=== PATIENT | female | born 1990 | race Caucasian/White ===

== ENCOUNTER 2019-08-15 08:50 | Emergency (ER) | payer OTHER ==
--- OUTSIDE RECORDS SUMMARY | 2019-08-15 08:59 | XMS REPORT | Summary of Care ---
:1990 Author Organization [facility] Address [address] [place] [address] Care Team Providers Name Role Phone Joel Hernandez Primary Care Provider Reason for Referral Radiology Services (Routine) Status Reason Specialty Diagnoses / Referred By Referred To Procedures Contact Contact New Request Diagnostic Diagnoses Irregular menstrual cycle Dyspareunia, female Vaginal pain Toniaphwesley, Radiology Procedures US PELVIS COMPLETE WITH TRANSVAGINAL [place] [address] [facility] [address] [place] [address] Reason for Visit Reason Comments DYSPAREUNIA past two months CRAMPS BLOATING Encounter Details Date Type Department Care Team Description 02/07/2019 Office Visit [facility] Women's Nettie Estrada, Irregular menstrual cycle (Primary Dx); [facility] CUEVAS Other specified conditions associated with female genital organs and menstrual cycle ; [address], [address] [facility] Dyspareunia, female; [address] Uterine cramping; [place], [place] [address] Abdominal bloating; [address] [place] Vaginal discharge; [phone] [address] Excessive or frequent menstruation; [phone] Vaginal pain; Pain pelvic Allergies Active Allergy Reactions Severity Noted Date Comments Cefaclor Rash 03/14/2009 Penicillins Unknown - See comments 02/23/2017 seizure documented as of this encounter (statuses as of 02/07/2019) Medications Medication Sig Dispensed Refills Start Date End Date Status diazePAM (VALIUM) 5 Take 1 tablet 1 tablet 0 02/23/2017 Active mg by mouth tabletIndications: SEE-INSTRUCTI Pre-procedural ONS. examination Hydrocodone-Acetami Take 1 tablet 1 tablet 0 02/23/2017 Active nophen (VICODIN) by mouth 5-300 mg SEE-INSTRUCTI tabletIndications: ONS. Pre-procedural examination norgestimate-ethiny Take 1 tablet 1 Package 12 02/07/2019 Active l estradiol 0.25-35 by mouth mg-mcg per daily. tabletIndications: Irregular menstrual cycle, Excessive or frequent menstruation norgestimate-ethiny Take 1 tablet 1 Package 12 05/11/2018 02/07/2019 Discontinued l estradiol 0.25-35 by mouth mg-mcg per daily. tabletIndications: Irregular menstrual cycle, Excessive or frequent menstruation norgestimate-ethiny Take 1 tablet 0 02/07/2019 Discontinued l estradiol by mouth (ESTARYLLA) 0.25-35 daily. mg-mcg per tablet documented as of this encounter (statuses as of 02/07/2019) Active Problems Problem Noted Date Uses vaginal contraceptive ring 04/27/2017 Irregular menstrual cycle 02/23/2017 Excessive or frequent menstruation 02/23/2017 Breakthrough bleeding on OCPs 02/23/2017 Abdominal bloating associated with menstruation 02/23/2017 Dysmenorrhea 02/23/2017 Elevated blood pressure reading 08/10/2010 documented as of this encounter (statuses as of 02/07/2019) Social History Tobacco Use Types Packs/Day Years Used Date Never Smoker Smokeless Tobacco: Never Used Alcohol Use Drinks/Week oz/Week Comments No Sex Assigned at Date Recorded Not on file Job Start Date Occupation Industry Not on file Not on file Not on file Travel History Travel Start Travel End No recent travel history available. documented as of this encounter Last Filed Vital Signs Vital Sign Reading Time Taken Comments Blood Pressure 125/82 02/07/2019 9:51 AM CDT Pulse 76 02/07/2019 9:51 AM CDT Temperature 36.5 C (97.7 F) 02/07/2019 9:51 AM CDT Respiratory Rate 18 02/07/2019 9:51 AM CDT Oxygen Saturation - - Inhaled Oxygen Concentration - - Weight 62.2 kg (137 lb 3.2 oz) 02/07/2019 9:51 AM CDT Height 165.1 cm (5' 5") 02/07/2019 9:51 AM CDT Body Mass Index 22.83 02/07/2019 9:51 AM CDT documented in this encounter Progress Notes Nettie Estrada PA-C - 02/07/2019 9:30 AM CDT Chief complaint: Chief Complaint Patient presents with DYSPAREUNIA past two months CRAMPS BLOATING HPI Subha Fan is a 28 year old female coming in with concerns for vaginal pain, pelvic pain,and dyspareunia. Patient reports she has a hx of irregular menses, ovarian cysts, and dysmenorrhea. Patient reports she was on an OCP before and she was switched to estarylla from Dr. Pavon. Patient reports ever since switching her pain started. Patient is wanting to get started back on her old OCP. Patient denies any vaginal spotting, bleeding, vaginal discharge, vaginal odor. Histories OB History Para Term AB Living 0 0 0 0 0 0 SAB TAB Ectopic Multiple Live Births 0 0 0 0 Past Medical History: Diagnosis Date Anxiety Asthma allergy induced Depression Dysmenorrhea 02/23/2017 Dyspareunia, female 11/2018 Irregular menstrual cycle 02/23/2017 NEGATIVE HISTORY OF Family History Problem Relation Age of Onset Hypertension Mother Asthma Mother High cholesterol Mother Hypertension Father Asthma Father High cholesterol Father Cancer Unknown ? Breast Cancer Maternal Grandmother 70 Cancer Paternal Grandmother 50 kidney Arthritis NoFHx defects NoFHx Colon Cancer NoFHx Ovarian Cancer NoFHx Uterine Cancer NoFHx Depression NoFHx Diabetes NoFHx Genetic NoFHx Heart NoFHx Mental retardation NoFHx Neurological NoFHx Osteoporosis NoFHx Psychiatry NoFHx Family Status Relation Name Status Mo (Not Specified) Fa (Not Specified) Unknown (Not Specified) MGMo Alive PGMo NoFHx (Not Specified) Past Surgical History: Procedure Laterality Date [place] ANESTH,KNEE AREA SURGERY 05/31/2014 TOOTH EXTRACTION Social History Socioeconomic History Marital status: Spouse name: Not on file Number of children: Not on file Years of education: Not on file Highest education level: Not on file Occupational History Not on file Social Needs Financial resource strain: Not on file Food insecurity: Worry: Not on file Inability: Not on file Transportation needs: Medical: Not on file Non-medical: Not on file Tobacco Use Smoking status: Never Smoker Smokeless tobacco: Never Used Substance and Sexual Activity Alcohol use: No Drug use: No Sexual activity: Yes Partners: Male control/protection: Pill Lifestyle Physical activity: Days per week: Not on file Minutes per session: Not on file Stress: Not on file Relationships Social connections: Talks on phone: Not on file Gets together: Not on file Attends lutheran service: Not on file Active member of club or organization: Not on file Attends meetings of clubs or organizations: Not on file Relationship status: Not on file Intimate partner violence: Fear of current or ex partner: Not on file Emotionally abused: Not on file Physically abused: Not on file Forced sexual activity: Not on file Other Topics Concern Not on file Social History Narrative No domestic abuse or violence. Social History Substance and Sexual Activity Sexual Activity Yes Partners: Male control/protection: Pill Labs none Radiology none Allergies Subha is allergic to ceclor [cefaclor] and pcn [penicillins]. Medications Subha has a current medication list which includes the following prescription(s) : norgestimate-ethinyl estradiol, diazepam, and hydrocodone-acetaminophen. Review of Systems Constitutional: Negative for appetite change, fatigue and fever. HENT: Negative for rhinorrhea and sore throat. Eyes: Negative for pain and itching. Respiratory: Negative for cough, chest tightness and shortness of breath. Breasts: Negative for discharge, mass and pain. Cardiovascular: Negative for chest pain, palpitations and leg swelling. Gastrointestinal: Negative for abdominal pain, constipation, diarrhea and nausea. Genitourinary: Positive for vaginal pain, menstrual problem and pelvic pain. Negative for bladder incontinence, dysuria, vaginal discharge and difficulty urinating. Musculoskeletal: Negative for gait problem and myalgias. Skin: Negative for rash. Neurological: Negative for dizziness and headaches. Psychiatric/Behavioral: Negative for suicidal ideas. The patient is not nervous/ anxious. Endocrine: Negative for hair loss. BP 125/82 (BP Location: Left arm, Patient Position: Sitting, BP CUFF SIZE: Adult Medium) | Pulse 76 | Temp 36.5 C (97.7 F) (Oral) | Resp 18 | Ht 5' 5" (1.651 m) | Wt 137 lb 3.2 oz (62.2 kg) |LMP 01/07/2019 (Approximate) | BMI 22.83 kg/m Pregravid BMI: Could not be calculated Physical Exam Vitals reviewed. Constitutional: She is oriented to person, place, and time. She appears well- developed and well-nourished. Neck: No mass. No thyromegaly palpated. No neck adenopathy. Cardiovascular: Regular rate and rhythm. Pulmonary/Chest: Normal inspiratory effort. Abdominal: Abdomen is soft. No tenderness present. No hernia palpated or inspected. Neuro/Psychiatric: She has a normal mood and affect. She is oriented to person, place, and time. Skin: Skin normal. Lymphadenopathy: No neck adenopathy present. No axillary adenopathy present. No inguinal adenopathy present. External genitalia: Normal external genitalia appropriate for age. Urethral meatus: Normal urethral meatus Urethra: Normal urethra. No urethral tenderness palpated. Bladder: No tenderness. Normal bladder Vagina:Vaginal discharge found. Cervix: Normal cervix. No tenderness present. Uterus: Uterus is non-tender. Normal uterus Adnexa: Right adnexa without tenderness. Left adnexa without tenderness. Normal left adnexa and normal right adnexa Assessment/Plan Irregular menstrual cycle (primary encounter diagnosis) Plan: norgestimate-ethinyl estradiol 0.25-35 mg-mcg per tablet, US PELVIS COMPLETE WITH TRANSVAGINAL Patient denies self or family history of thromboembolic disease or thrombophilia , migraine headache. I counseled patient regarding use of oral contraceptives. There are combined oral contraceptive, which has both estrogen and progestin, and there is progestin only oral contraceptive. With typical use, 9 out 100 women get in the first year and with perfect use 0.3 out of 100 women get in the first year according to ACOG Practice Bulletin. Risks include but not limited to increase risk of thromboembolic disease, headache, weight gain, mood lability, and breast cancer. Decrease risks of ovarian cancer , colon cancer, and endometrial cancer. Oral contraceptive may decrease milk supply. Alternatives reviewed include patch, ring, Depo-Provera, Nexplanon, and IUD. Advise using condoms for STDs prevention. Other specified conditions associated with female genital organs and menstrual cycle Dyspareunia, female Plan: US PELVIS COMPLETE WITH TRANSVAGINAL Uterine cramping Plan: [facility] ONLY - VAGINAL PATHOGENS BY DNA PROBE, GC & CHLAMYDIA AMPLIFIED ASSAY Abdominal bloating Plan: [facility] ONLY - VAGINAL PATHOGENS BY DNA PROBE, GC & CHLAMYDIA AMPLIFIED ASSAY Vaginal discharge Plan: [facility] ONLY - VAGINAL PATHOGENS BY DNA PROBE, GC & CHLAMYDIA AMPLIFIED ASSAY Excessive or frequent menstruation Plan: norgestimate-ethinyl estradiol 0.25-35 mg-mcg per tablet Vaginal pain Plan: US PELVIS COMPLETE WITH TRANSVAGINAL Pain pelvic Return to clinic prn WWE Discussed treatment options. Medications as ordered. Reviewed patient instructions and provided printed copy. This visit did not involve counseling and coordination that comprised more than 50% of the visit time. Nettie Estrada PA-C 02/07/2019 10:25 AM documented in this encounter Plan of Treatment Name Type Priority Associated Diagnoses Order Schedule [facility] ONLY - VAGINAL LAB Routine Uterine cramping Ordered: 02/07/2019 PATHOGENS BY DNA PROBE Abdominal bloating Vaginal discharge GC & CHLAMYDIA AMPLIFIED LAB Routine Uterine cramping Ordered: 02/07/2019 ASSAY Abdominal bloating Vaginal discharge US PELVIS COMPLETE WITH IMAGING Routine Irregular menstrual Expected: TRANSVAGINAL cycle 02/07/2019, Expires: Dyspareunia, female 02/08/2020 Vaginal pain Health Maintenance Due Date Last Done Comments VARICELLA VACCINES (1 of 2 - 13+ 2002 2-dose series) DTaP,Tdap,and Td Vaccines (1 - 2008 Tdap) INFLUENZA VACCINE (#1) 2019 06/29/2016 PAP SMEAR 04/27/2020 04/27/2017 PNEUMOCOCCAL 0-64 YEARS COMBINED Aged Out No longer eligible based on SERIES patient's age to complete this topic documented as of this encounter Results Not on filedocumented in this encounter Visit Diagnoses Diagnosis Irregular menstrual cycle - Primary Other specified conditions associated with female genital organs and menstrual cycle Dyspareunia, female Dyspareunia Uterine cramping Abdominal bloating Flatulence, eructation, and gas pain Vaginal discharge Leukorrhea, not specified as infective Excessive or frequent menstruation Vaginal pain Unspecified symptom associated with female genital organs Pain pelvic Unspecified symptom associated with female genital organs documented in this encounter . (Home) [place] [address] documented as of this encounter
--- OUTSIDE RECORDS SUMMARY | 2019-08-15 08:59 | XMS REPORT ---
:1990 Author Organization [facility] Address [address] [place] [address] Dr. Mac [address] [place] [address] Care Team Providers Name Role Phone Unavailable Unavailable Unavailable Problems This patient has no known problems. Allergies, Adverse Reactions, Alerts This patient has no known allergies or adverse reactions. Medications This patient has no known medications.
--- OUTSIDE RECORDS SUMMARY | 2019-08-15 08:59 | XMS REPORT | Summary of Care ---
:1990 Author Organization [facility] - Health Address [address] [place] [address] Care Team Providers Name Role Phone Joel Hernandez Primary Care Provider Encounter Details Date Type Department Care Team Description 01/13/2019 Orders Only [facility] Doctor Unassigned, No [address] [facility] [place] [address] [address] [place] [address] Allergies Active Allergy Reactions Severity Noted Date Comments Cefaclor Rash 03/14/2009 Penicillins Unknown - See comments 02/23/2017 seizure documented as of this encounter (statuses as of 01/19/2019) Medications Medication Sig Dispensed Refills Start Date End Date Status diazePAM (VALIUM) 5 mg Take 1 tablet by 1 tablet 0 02/23/2017 Active tabletIndications: mouth Pre-procedural SEE-INSTRUCTIONS. examination Hydrocodone-Acetaminoph Take 1 tablet by 1 tablet 0 02/23/2017 Active en (VICODIN) 5-300 mg mouth tabletIndications: SEE-INSTRUCTIONS. Pre-procedural examination norgestimate-ethinyl Take 1 tablet by 1 Package 12 05/11/2018 Active estradiol 0.25-35 mouth daily. mg-mcg per tabletIndications: Irregular menstrual cycle, Excessive or frequent menstruation documented as of this encounter (statuses as of 01/19/2019) Active Problems Problem Noted Date Uses vaginal contraceptive ring 04/27/2017 Irregular menstrual cycle 02/23/2017 Excessive or frequent menstruation 02/23/2017 Breakthrough bleeding on OCPs 02/23/2017 Abdominal bloating associated with menstruation 02/23/2017 Dysmenorrhea 02/23/2017 Elevated blood pressure reading 08/10/2010 documented as of this encounter (statuses as of 01/19/2019) Social History Tobacco Use Types Packs/Day Years Used Date Never Smoker Smokeless Tobacco: Never Used Alcohol Use Drinks/Week oz/Week Comments No Sex Assigned at Date Recorded Not on file Job Start Date Occupation Industry Not on file Not on file Not on file Travel History Travel Start Travel End No recent travel history available. documented as of this encounter Last Filed Vital Signs Not on filedocumented in this encounter Plan of Treatment Health Maintenance Due Date Last Done Comments VARICELLA VACCINES (1 of 2 - 13+ 2002 2-dose series) DTaP,Tdap,and Td Vaccines (1 - 2008 Tdap) INFLUENZA VACCINE 02/19/2019 06/29/2016 PAP SMEAR 04/27/2020 04/27/2017 PNEUMOCOCCAL 0-64 YEARS COMBINED Aged Out No longer eligible based on SERIES patient's age to complete this topic documented as of this encounter Procedures Procedure Name Priority Date/Time Associated Diagnosis Comments REFERRAL- Routine 01/13/2019 12:01 AM CDT REQUEST/RESPONSE documented in this encounter Results Not on filedocumented in this encounter Insurance Payer Benefit Plan / Group Subscriber ID Effective Dates Phone Address Type EAST [id number] 2018-Present SOUTH [id number] 2016-Present documented as of this encounter
--- OUTSIDE RECORDS SUMMARY | 2019-08-15 09:00 | XMS REPORT | Summary of Care ---
:1990 Author Organization [facility] Address [address] [place] [address] Care Team Providers Name Role Phone Joel Hernandez Primary Care Provider Reason for Referral Radiology Services (Routine) Status Reason Specialty Diagnoses / Referred By Referred To Procedures Contact Contact Closed Diagnostic Diagnoses Irregular menstrual cycle Dyspareunia, female Vaginal pain Irregular menstrual cycle Vanaphan, Nettie, Radiology Procedures US PELVIS COMPLETE WITH TRANSVAGINAL CHG ECHO,PELVIC (NONOBSTETRIC) PA-C [address] [address] Radiology Services (Routine) Status Reason Specialty Diagnoses / Referred By Referred To Procedures Contact Contact Closed Diagnostic Diagnoses Irregular menstrual cycle Dyspareunia, female Vaginal pain Irregular menstrual cycle Vanaphan, Nettie, Radiology Procedures US PELVIS COMPLETE WITH TRANSVAGINAL CHG ECHO,PELVIC (NONOBSTETRIC) PA-C [address] [address] Reason for Visit Radiology Services (Routine) Status Reason Specialty Diagnoses / Referred By Referred To Procedures Contact Contact Closed Diagnostic Diagnoses Irregular menstrual cycle Dyspareunia, female Vaginal pain Irregular menstrual cycle Vanaphan, Nettie, Radiology Procedures US PELVIS COMPLETE WITH TRANSVAGINAL CHG ECHO,PELVIC (NONOBSTETRIC) PA-C [address] [address] Encounter Details Date Type Department Care Team Description 02/14/2019 Hospital Encounter [facility] Natalie Nettie, Leonid Gonzalez Ultrasound PA-C [address] [facility] [address] [place] [address] [address] [phone] [address] [place] [address] Allergies Active Allergy Reactions Severity Noted Date Comments Cefaclor Rash 03/14/2009 Penicillins Unknown - See comments 02/23/2017 seizure documented as of this encounter (statuses as of 02/15/2019) Medications Medication Sig Dispensed Refills Start Date End Date Status diazePAM (VALIUM) 5 mg Take 1 tablet by 1 tablet 0 02/23/2017 Active tabletIndications: mouth Pre-procedural SEE-INSTRUCTIONS examination . Hydrocodone-Acetaminophe Take 1 tablet by 1 tablet 0 02/23/2017 Active n (VICODIN) 5-300 mg mouth tabletIndications: SEE-INSTRUCTIONS Pre-procedural . examination norgestimate-ethinyl Take 1 tablet by 1 Package 12 02/07/2019 Active estradiol 0.25-35 mg-mcg mouth daily. per tabletIndications: Irregular menstrual cycle, Excessive or frequent menstruation metroNIDAZOLE 500 mg Take 1 tablet by 14 tablet 0 02/08/2019 Active tabletIndications: BV mouth every 12 (bacterial vaginosis) (twelve) hours. documented as of this encounter (statuses as of 02/15/2019) Active Problems Problem Noted Date Uses vaginal contraceptive ring 04/27/2017 Irregular menstrual cycle 02/23/2017 Excessive or frequent menstruation 02/23/2017 Breakthrough bleeding on OCPs 02/23/2017 Abdominal bloating associated with menstruation 02/23/2017 Dysmenorrhea 02/23/2017 Elevated blood pressure reading 08/10/2010 documented as of this encounter (statuses as of 02/15/2019) Social History Tobacco Use Types Packs/Day Years [...] encounter Procedures Procedure Name Priority Date/Time Associated Comments Diagnosis US PELVIS COMPLETE Routine 02/14/2019 9:54 Irregular menstrual Results for this WITH TRANSVAGINAL AM CDT cycle procedure are in Dyspareunia, female the results Vaginal pain section. documented in this encounter Results US PELVIS COMPLETE WITH TRANSVAGINAL (02/14/2019 9:54 AM CDT) Specimen Narrative Performed At HISTORY: Vaginal/pelvic pain during intercourse. PACS/VR/DOSE TECHNIQUE: Both transabdominal and transvaginal pelvic ultrasound studies were completed by the technologist. FINDINGS: Comparison has been made with 05/10/2018 study. Uterus is of normal size and shape, measures approximately 7.1 x 2.5 x 4.3 cm in size with homogeneous echo texture of the myometrium. Endometrial echo complex is 3.7 mm. No free fluid in the cul-de-sac. Right ovary is 3 x 3 x 1.6 cm (7.93 ml) and left ovary is 4.7 x 3.3 x 3.0 cm (24.89 ml). Multiple follicles are seen in the right ovary, ranging from 4 mm to 8mm in size. Left ovary contains a large 3.4 x 2.8 cm cyst with at least one 6 mm daughter cyst protruding into its lumen. 17 x 12 x 26 mm cystic lesion again noted adjacent to the external os of the cervix, likely arising from the vaginal wall. CONCLUSIONS: 1. Enlarged left ovary due to a large 3.4 cm size cyst. This cyst is a new finding since April 2018 study. 2. Known cystic mass in the wall of the vagina closed external os of the cervix, essentially unchanged. This cystic mass is likely the cause of patient's complaints. Procedure Note [facility], Radiant Results Inft User - 02/14/2019 10:05 AM CDT HISTORY: Vaginal/pelvic pain during intercourse. TECHNIQUE: Both transabdominal and transvaginal pelvic ultrasound studies were completed by the technologist. FINDINGS: Comparison has been made with 05/10/2018 study. Uterus is of normal size and shape, measures approximately 7.1 x 2.5 x 4.3 cm in size with homogeneous echo texture of the myometrium. Endometrial echo complex is 3.7 mm. No free fluid in the cul-de-sac. Right ovary is 3 x 3 x 1.6 cm (7.93 ml) and left ovary is 4.7 x 3.3 x 3.0 cm (24.89 ml). Multiple follicles are seen in the right ovary, ranging from 4 mm to 8mm in size. Left ovary contains a large 3.4 x 2.8 cm cyst with at least one 6 mm daughter cyst protruding into its lumen. 17 x 12 x 26 mm cystic lesion again noted adjacent to the external os of the cervix, likely arising from the vaginal wall. CONCLUSIONS: 1. Enlarged left ovary due to a large 3.4 cm size cyst. This cyst is a new finding since April 2018 study. 2. Known cystic mass in the wall of the vagina closed external os of the cervix, essentially unchanged. This cystic mass is likely the cause of patient's complaints. Performing Organization Address City/State/Zipcode Phone Number PACS/VR/DOSE documented in this encounter Visit Diagnoses Diagnosis Irregular menstrual cycle Dyspareunia, female Dyspareunia Vaginal pain Unspecified symptom associated with female genital organs documented in this encounter [address] (Home) [place] [address] documented as of this encounter
--- OUTSIDE RECORDS SUMMARY | 2019-08-15 09:00 | XMS REPORT | Summary of Care ---
:1990 Author Organization [facility] - Health Address [address] [place] [address] Care Team Providers Name Role Phone Joel Hernandez Primary Care Provider Encounter Details Date Type Department Care Team Description 02/14/2019 Orders Only [facility] Doctor Unassigned, No [address] [facility] [place] [address] [address] [place] [address] Allergies Active Allergy Reactions Severity Noted Date Comments Cefaclor Rash 03/14/2009 Penicillins Unknown - See comments 02/23/2017 seizure documented as of this encounter (statuses as of 02/14/2019) Medications Medication Sig Dispensed Refills Start Date [...] as of this encounter (statuses as of 02/14/2019) Active Problems Problem Noted Date Uses vaginal contraceptive ring 04/27/2017 Irregular menstrual cycle 02/23/2017 Excessive or frequent menstruation 02/23/2017 Breakthrough bleeding on OCPs 02/23/2017 Abdominal bloating associated with menstruation 02/23/2017 Dysmenorrhea 02/23/2017 Elevated blood pressure reading 08/10/2010 documented as of this encounter (statuses as of 02/14/2019) Social History Tobacco Use Types Packs/Day Years [...] Procedure Name Priority Date/Time Associated Diagnosis Comments ASSIGNMENT OF BENEFITS Routine 02/14/2019 9:05 AM CDT documented in this encounter Results Not on filedocumented in this encounter Insurance Payer Benefit Plan / Group Subscriber ID Effective Dates Phone Address Type EAST [id number] 2018-Present SOUTH [id number] 2016-Present documented as of this encounter
--- OUTSIDE RECORDS SUMMARY | 2019-08-15 09:00 | XMS REPORT | Summary of Care ---
:[address] [facility] - Health Address [address] [place] [address] Care Team Providers Name Role Phone Joel Hernandez Primary Care Provider Encounter Details Date Type Department Care Team Description 07/29/[address] [facility] Doctor Unassigned, No [address] [facility] [place] [address] [address] [place] [address] Allergies Active Allergy Reactions Severity Noted Date Comments Cefaclor Rash 03/14/2009 Penicillins Unknown - See comments 02/23/2017 seizure documented as of this encounter (statuses as of 02/19/2019) Medications Medication Sig Dispensed Refills Start Date End Date Status diazePAM (VALIUM) 5 mg Take 1 tablet by 1 tablet 0 02/23/2017 Active tabletIndications: mouth Pre-procedural SEE-INSTRUCTIONS. examination Hydrocodone-Acetaminoph Take 1 tablet by 1 tablet 0 02/23/2017 Active en (VICODIN) 5-300 mg mouth tabletIndications: SEE-INSTRUCTIONS. Pre-procedural examination documented as of this encounter (statuses as of 02/19/2019) Active Problems Problem Noted Date Uses vaginal contraceptive ring 04/27/2017 Irregular menstrual cycle 02/23/2017 Excessive or frequent menstruation 02/23/2017 Breakthrough bleeding on OCPs 02/23/2017 Abdominal bloating associated with menstruation 02/23/2017 Dysmenorrhea 02/23/2017 Elevated blood pressure reading 08/10/2010 documented as of this encounter (statuses as of 02/19/2019) Social History Tobacco Use Types Packs/Day Years [...] Procedure Name Priority Date/Time Associated Diagnosis Comments INSURANCE CORRESPONDENCE Routine 07/29/2018 12:01 AM LUMBER CHECKER documented in this encounter Results Not on filedocumented in this encounter Insurance Payer Benefit Plan / Group Subscriber ID Effective Dates Phone Address Type EAST [id number] 2018-Present SOUTH [id number] 2016-Present documented as of this encounter
--- OUTSIDE RECORDS SUMMARY | 2019-08-15 09:00 | XMS REPORT | Summary of Care ---
:1990 Author Organization [facility] Address [address] [place] [address] Care Team Providers Name Role Phone Joel Hernandez Primary Care Provider Reason for Referral Radiology Services (Routine) Status Reason Specialty Diagnoses / Referred By Referred To Procedures Contact Contact New Request Diagnostic Diagnoses Irregular menstrual cycle Dyspareunia, female Vaginal pain Toni[place]wesley, Radiology Procedures US PELVIS COMPLETE WITH TRANSVAGINAL [place] [address] [facility] [address] [place] [address] Reason for Visit Reason Comments DYSPAREUNIA past two months CRAMPS BLOATING Encounter Details Date Type Department Care Team Description 02/07/2019 Office Visit [facility] Women's Nettie Estrada, Irregular menstrual cycle (Primary Dx); [facility] CUEVAS Other specified conditions associated with female genital organs and menstrual cycle ; [address], [address] [facility] Dyspareunia, female; [address] Uterine cramping; [place], [place] [address] Abdominal bloating; [address] [place], [place] Vaginal discharge; [phone] [address] Excessive or frequent menstruation; [phone] Vaginal pain; Pain pelvic Allergies Active Allergy [...] Specified) Past Surgical History: Procedure Laterality Date [place] ANESTH,KNEE AREA SURGERY 05/31/2014 TOOTH EXTRACTION Social [...] file Gets together: Not on file Attends denominational service: Not on file Active member of [...] organs documented in this encounter . (Home) [place] [address] documented as of this encounter
--- OUTSIDE RECORDS SUMMARY | 2019-08-15 09:00 | XMS REPORT | Summary of Care ---
:1990 Author Organization [facility] - [facility] Address [address] [place] [address] Care Team Providers Name Role Phone Joel Hernandez Primary Care Provider Reason for Visit Reason Comments New Medication Encounter Details Date Type Department Care Team Description 02/08/2019 Case Management [facility] Women's Nettie Estrada [facility]- [address], [address] [place] [address] [address] [place] [address] [place] [address] [place] [address] Allergies Active Allergy Reactions Severity Noted Date Comments Cefaclor Rash 03/14/2009 Penicillins Unknown - See comments 02/23/2017 seizure documented as of this encounter (statuses as of 02/08/2019) Medications Medication Sig Dispensed Refills Start Date [...] as of this encounter (statuses as of 02/08/2019) Active Problems Problem Noted Date Uses vaginal contraceptive ring 04/27/2017 Irregular menstrual cycle 02/23/2017 Excessive or frequent menstruation 02/23/2017 Breakthrough bleeding on OCPs 02/23/2017 Abdominal bloating associated with menstruation 02/23/2017 Dysmenorrhea 02/23/2017 Elevated blood pressure reading 08/10/2010 documented as of this encounter (statuses as of 02/08/2019) Social History Tobacco Use Types Packs/Day Years [...] filedocumented in this encounter Plan of Treatment Date Type Specialty Care Team Description 02/14/2019 Appointment Radiology Nettie Estrada PA-C [address] [place] [phone] Health Maintenance Due Date Last Done Comments [...] filedocumented in this encounter Visit Diagnoses Diagnosis BV (bacterial vaginosis) - Primary Vaginitis and vulvovaginitis, unspecified documented in this encounter Insurance Payer Benefit Plan / Group Subscriber ID Effective Dates Phone Address Type EAST [id number] 2018-Present SOUTH [id number] 2016-Present documented as of this encounter
--- OUTSIDE RECORDS SUMMARY | 2019-08-15 09:01 | XMS REPORT | Summary of Care ---
:1990 Author Organization [facility] Address [address] [place] [address] Care Team Providers Name Role Phone Joel Hernandez Primary Care Provider Reason for Visit Reason Comments Well Woman Exam Encounter Details Date Type Department Care Team Description 03/07/2019 Office Visit [facility] Women's Nettie Estrada Well woman exam with routine gynecological exam (Primary Dx); [facility] PA-C Screening breast examination; [address] [facility], [facility] Uses oral contraceptives [address] [facility] 208 [address] [place], [place] [phone] Allergies Active Allergy Reactions Severity Noted Date Comments Cefaclor Rash 03/14/2009 Penicillins Unknown - See comments 02/23/2017 seizure documented as of this encounter (statuses as of 03/07/2019) Medications Medication Sig Dispensed Refills Start Date [...] mouth every 12 (bacterial vaginosis) (twelve) hours. cetirizine 10 mg tablet TK 1 T PO D. 0 01/09/2019 Active montelukast 10 mg tablet TK 1 T PO QD 1 01/09/2019 Active documented as of this encounter (statuses as of 03/07/2019) Active Problems Problem Noted Date Uses vaginal contraceptive ring 04/27/2017 Irregular menstrual cycle 02/23/2017 Excessive or frequent menstruation 02/23/2017 Breakthrough bleeding on OCPs 02/23/2017 Abdominal bloating associated with menstruation 02/23/2017 Dysmenorrhea 02/23/2017 Elevated blood pressure reading 08/10/2010 documented as of this encounter (statuses as of 03/07/2019) Social History Tobacco Use Types Packs/Day Years Used Date Never Smoker Smokeless Tobacco: Never Used Alcohol Use Drinks/Week oz/Week Comments Yes rare Sex Assigned at Date Recorded Not on file Job Start Date Occupation Industry Not on file Not on file Not on file Travel History Travel Start Travel End No recent travel history available. documented as of this encounter Last Filed Vital Signs Vital Sign Reading Time Taken Comments Blood Pressure 113/76 03/07/2019 10:10 AM CDT Pulse 68 03/07/2019 10:10 AM CDT Temperature 36.4 C (97.5 F) 03/07/2019 10:10 AM CDT Respiratory Rate 18 03/07/2019 10:10 AM CDT Oxygen Saturation - - Inhaled Oxygen Concentration - - Weight 62.6 kg (138 lb) 03/07/2019 10:10 AM CDT Height 162.6 cm (5' 4") 03/07/2019 10:10 AM CDT Body Mass Index 23.69 03/07/2019 10:10 AM CDT documented in this encounter Progress Notes Nettie Estrada PA-C - 03/07/2019 10:00 AM CDT Chief complaint: Chief Complaint Patient presents with Well Woman Exam HPI Subha Fan is a 28 year old female presenting for well woman exam. She has no complaints and reports is doing well. Patient denies any abnormal/ pelvic pain, discharge, dysuria, hematuria, abnormal bleeding. The patient has a Body mass index is 23.69 kg/m.. The patient is not concerned about her menstrual cycles. Her cycles are regular and last about 4-7days. Her bleeding is moderate. The patient is sexually active. She currently has 1 sexual partner(s). She is offered sexually transmitted disease testing and declines. She has had 1 sexual partners in the past year. She engages in vaginal and oral sex. She prefers men. She is currently using OCPs for contraception. The patient denies any urinary incontinence. She denies any fecal incontinence. Her last pap smear was in 2016 and was normal. Her next pap smear is due 2019. She engages in breast self awareness. She denies any breast changes. She denies any family history of ovarian, uterine or colon cancer. Patient reports paternal and maternal grandmothers had breast ca. The patient feels safe at home. She denies any history of drug use. She does not smoke. She drinks socially. Her mood is good. Histories OB History Para Term AB Living [...] Father Asthma Father High cholesterol Father Cancer Other ? Breast Cancer Maternal Grandmother 70 Cancer Paternal Grandmother 50 kidney Arthritis NoFHx defects NoFHx Colon Cancer NoFHx Ovarian Cancer NoFHx Uterine Cancer NoFHx Depression NoFHx Diabetes NoFHx Genetic NoFHx Heart NoFHx Mental retardation NoFHx Neurological NoFHx Osteoporosis NoFHx Psychiatry NoFHx Family Status Relation Name Status Mo (Not Specified) Fa (Not Specified) OTHER (Not Specified) MGMo Alive PGMo NoFHx (Not Specified) Past Surgical History: Procedure Laterality Date [place] ANESTH,KNEE AREA SURGERY 05/31/2014 TOOTH EXTRACTION Social [...] Used Substance and Sexual Activity Alcohol use: Yes Comment: rare Drug use: No Sexual activity: Yes Partners: Male control/protection: Pill Lifestyle Physical activity: Days per week: Not on file Minutes per session: Not on file Stress: Not on file Relationships Social connections: Talks on phone: Not on file Gets together: Not on file Attends zoroastrianism service: Not on file Active member of [...] list which includes the following prescription(s) : cetirizine, montelukast, norgestimate-ethinyl estradiol, metronidazole, diazepam, and hydrocodone-acetaminophen. Review of Systems Constitutional: Negative for appetite change, fatigue, fever, unexpected weight change, weight gain and weight loss. HENT: Negative for rhinorrhea and sore throat. Eyes: Negative for pain and itching. Respiratory: Negative for cough, chest tightness and shortness of breath. Breasts: Negative for discharge, mass and pain. Cardiovascular: Negative for chest pain, palpitations and leg swelling. Gastrointestinal: Negative for abdominal pain, constipation, diarrhea and nausea. Genitourinary: Negative for bladder incontinence, dysuria, vaginal discharge, difficulty urinating, vaginal pain and pelvic pain. Musculoskeletal: Negative for gait problem and myalgias. Skin: Negative for rash. Neurological: Negative for dizziness and headaches. Psychiatric/Behavioral: Negative for suicidal ideas. The patient is not nervous/ anxious. Endocrine: Negative for hair loss, weight gain and weight loss. BP 113/76 (BP Location: Left arm, Patient Position: Sitting, BP CUFF SIZE: Adult Medium) | Pulse 68 | Temp 36.4 C (97.5 F) (Oral) | Resp 18 | Ht 5' 4" (1.626 m) | Wt 138 lb (62.6 kg) | LMP 02/28/2019 (Exact Date) | BMI 23.69 kg/m Pregravid BMI: Could not be calculated [...] axillary adenopathy present. No inguinal adenopathy present. Breast: Right breast exhibits no mass, no nipple discharge and no tenderness. Left breast exhibits no mass, no nipple discharge and no tenderness. Breasts are symmetrical. Normal left breast and normalright breast External genitalia: Normal external genitalia appropriate for age. Urethral meatus: Normal urethral meatus Urethra: Normal urethra. Bladder: No tenderness. Normal bladder Vagina:Normal vagina. No lesion inspected. No abnormal vaginal discharge found. Cervix: Normal cervix. No lesion. No tenderness and no discharge present. Uterus: Uterus is non-tender. Normal uterus Adnexa: Right adnexa without tenderness. Left adnexa without tenderness. Normal left adnexa and normal right adnexa Anus/perineum: Normal perineum and normal anus. Assessment/Plan Well woman exam with routine gynecological exam (primary encounter diagnosis) FOLLOW-UP in 1 yr WWE Screening breast examination Comment:no complaints. Plan: self awareness Uses oral contraceptives [place] with OCPs. Patient will continue taking it. Return to clinic in 1 yr WWE Discussed treatment options. Reviewed patient instructions and provided printed copy. This visit did not involve counseling and coordination that comprised more than 50% of the visit time. Nettie Estrada PA-C 03/07/2019 10:35 AM documented in this encounter Plan of Treatment Date Type Specialty Care Team Description 03/07/2020 Office Visit Obstetrics & Gynecology Nettie Estrada PA-C [address] [place] [phone] Health Maintenance Due Date Last Done [...] filedocumented in this encounter Visit Diagnoses Diagnosis Well woman exam with routine gynecological exam - Primary Routine gynecological examination Screening breast examination Other screening breast examination Uses oral contraceptives Surveillance of previously prescribed contraceptive pill documented in this encounter Ln. (Home) [place] [address] documented as of this encounter
--- OUTSIDE RECORDS SUMMARY | 2019-08-15 09:01 | XMS REPORT | Summary of Care ---
:1990 Author Organization [facility] - Health Address [address] [place] [address] Care Team Providers Name Role Phone Joel Hernandez Primary Care Provider Encounter Details Date Type Department Care Team Description 03/07/2019 Orders Only [facility] Doctor Unassigned, No [address] [facility] [place] [address] 301 [place] [address] Allergies Active Allergy Reactions Severity Noted Date [...] Treatment Date Type Specialty Care Team Description 03/07/2019 Office Visit Obstetrics & Gynecology Nettie Estrada PA-C [address] [address] Health Maintenance Due Date Last Done [...] Procedure Name Priority Date/Time Associated Diagnosis Comments NO SHOW OR MISSED Routine 03/07/2019 9:56 AM APPOINTMENT POLICY CDT ACKNOWLEDGEMENT documented in this encounter Results Not on filedocumented in this encounter Insurance Payer Benefit Plan / Group Subscriber ID Effective Dates Phone Address Type EAST [id number] 2018-Present SOUTH [id number] 2016-Present documented as of this encounter
--- OUTSIDE RECORDS SUMMARY | 2019-08-15 09:01 | XMS REPORT | Summary of Care ---
:1990 Author Organization [facility] Address [address] [place] [address] Care Team Providers Name Role Phone Joel Hernandez Primary Care Provider Reason for Visit Reason Comments Notification Referral/consult Encounter Details Date Type Department Care Team Description 07/14/2019 Telephone [facility] Women's VeraTeena MD Notification; Healthcare- [address] Referral/consult [address] [place], [place] [address] [address] [place] [phone] Allergies Active Allergy Reactions Severity Noted Date Comments Cefaclor Rash 03/14/2009 Penicillins Unknown - See comments 02/23/2017 seizure documented as of this encounter (statuses as of 07/14/2019) Medications Medication Sig Dispensed Refills Start Date End Date Status cetirizine 10 mg tablet TK 1 T PO D. 0 01/09/2019 Active montelukast 10 mg tablet TK 1 T PO QD 1 01/09/2019 Active documented as of this encounter (statuses as of 07/14/2019) Active Problems Problem Noted Date Irregular menstrual cycle 02/23/2017 Excessive or frequent menstruation 02/23/2017 Abdominal bloating associated with menstruation 02/23/2017 Dysmenorrhea 02/23/2017 Elevated blood pressure reading 08/10/2010 documented as of this encounter (statuses as of 07/14/2019) Resolved Problems Problem Noted Date Resolved Date Uses vaginal contraceptive ring 04/27/2017 06/26/2019 Breakthrough bleeding on OCPs 02/23/2017 06/26/2019 documented as of this encounter (statuses as of 07/14/2019) Social History Tobacco Use Types Packs/Day Years [...] Visit Obstetrics & Gynecology Nettie Estrada PA-C [address] [place] [phone] Health Maintenance Due Date Last Done Comments VARICELLA VACCINES (1 of 2 - 1990 2-dose childhood series) DTaP,Tdap,and Td Vaccines (1 - 2000 Tdap) INFLUENZA VACCINE (#1) 2019 06/29/2016 PAP SMEAR 04/27/2020 04/27/2017 PNEUMOCOCCAL 0-64 YEARS COMBINED Aged Out No longer eligible based on SERIES patient's age to complete this topic documented as of this encounter Results Not on filedocumented in this encounter Insurance Payer Benefit Plan / Group Subscriber ID Effective Dates Phone Address Type EAST [id number] 2018-Present SOUTH [id number] 2016-Present documented as of this encounter
--- OUTSIDE RECORDS SUMMARY | 2019-08-15 09:01 | XMS REPORT | Summary of Care ---
:1990 Author Organization [facility] Address [address] [place] [address] Care Team Providers Name Role Phone Joel Hernandez Primary Care Provider Reason for Visit Reason Comments Well Woman Exam Encounter Details Date Type Department Care Team Description 03/07/2019 Office Visit [facility] Women's Nettie Estrada Well woman exam with routine gynecological exam (Primary Dx); [facility] Screening breast examination; [address] [facility], [facility] Uses oral contraceptives [address] [facility] 208 [address] [place], [place] [phone] Allergies Active Allergy Reactions Severity Noted Date [...] Specified) Past Surgical History: Procedure Laterality Date [place] ANESTH,KNEE AREA SURGERY 05/31/2014 TOOTH EXTRACTION Social [...] file Gets together: Not on file Attends episcopalian service: Not on file Active member of [...] documented in this encounter Plan of Treatment Health Maintenance Due Date Last Done Comments VARICELLA VACCINES (+ 2002 2-dose series) DTaP,Tdap,and Td Vaccines (1 [...] pill documented in this encounter [address]n. (Home) [place] [address] documented as of this encounter
[2019-08-15 09:39] LABS: Urine Blood NEGATIVE (NEG); Urine Glucose NEGATIVE (NEG); Urine Protein NEGATIVE (NEG); Urine pH 7.5 (5.0-7.0)
[2019-08-15 09:40] LABS: Absolute Lymphocytes (CBC) 2.7 K/uL (0.7-4.9); Basophils % 0.7 % (0-1.3); Hematocrit 39.7 % (36.0-45.0); Lymphocytes % 30.1 % (15.3-44.8); MPV 8.3 fL (7.6-11.3); RBC Red Blood Cell Count 4.25 M/uL (3.86-4.86)
[2019-08-15 10:20] LABS: BUN Blood Urea Nitrogen 6 mg/dL (7-18); Bicarbonate 25 mmol/L (21-32); Glucose Level 89 mg/dL (74-106); HCG, Quantitative 74010 mIU/mL (1-3); Potassium 3.6 mmol/L (3.5-5.1); Sodium Level 138 mmol/L (136-145)
--- NOTE | 2019-08-15 10:37 | ER ---
Nurse's Notes [facility] Name: Subha Fan Age: 28 yrs Sex: Female : 1990 Arrival Date: 08/15/2019 Time: 08:53 Bed 7 Private MD: Diagnosis: Less than 8 weeks gestation of Presentation: 08/15 09:15 Presenting complaint: Patient states: Sent by SIGN OUT CLERK for high HCG level, >80,000, to be ph evaluated for ectopic , pt reports slight cortney pelvic pain, nausea last night, denies vaginal bleeding or vomiting. Transition of care: patient was not received from another setting of care. Onset of symptoms was August 15, 2019. Risk Assessment: Do you want to hurt yourself or someone else? Patient reports no desire to harm self or others. Initial Sepsis Screen: Does the patient meet any 2 criteria? No. Patient's initial sepsis screen is negative. Does the patient have a suspected source of infection? No. Patient's initial sepsis screen is negative. Care prior to arrival: None. 09:15 Method Of Arrival: Ambulatory 09:15 Acuity: JESIKA 3 ph Triage Assessment: 09:33 General: Appears in no apparent distress. Behavior is cooperative, anxious. Pain: ll1 Complains of pain in right lower quadrant and left lower quadrant Pain currently is 2 out of 10 on a pain scale. EENT: No deficits noted. Neuro: No deficits noted. Cardiovascular: No deficits noted. Respiratory: No deficits noted. GI: Reports lower abdominal pain, nausea. : No deficits noted. SIGN OUT CLERK: 09:18 LMP 08/04/2019 ph 10:14 1, 0, Living 0, LMP 08/04/2019 kb Historical: - Allergies: 09:20 Ceclor; ph 09:20 PENICILLINS; ph - Home Meds: 09:20 Estrostep Fe-28 1-20(5)/1-30(7) /1mg-35mcg (9) Oral tab 1 tab once daily [Active]; ph Flonase 50 mcg/actuation Nasal spsn 1 spray once daily [Active]; Singulair 10 mg Oral tab 1 tab once daily [Active]; Zyrtec 10 mg Oral tab 1 tab once daily [Active]; - PMHx: 09:20 Asthma; Migraines; ph - PSHx: 09:20 Left Knee; ph - Immunization history:: Adult Immunizations not up to date. - Coronavirus screen:: The patient has NOT traveled to [place] in the past 14 days. The patient has NOT had contact with known/suspected case of Coronavirus?. - Social history:: Smoking status: Patient denies any tobacco usage or history of. - Ebola Screening: : No symptoms or risks identified at this time. Screenin:22 Abuse screen: Denies threats or abuse. Denies injuries from another. Nutritional ph screening: No deficits noted. Tuberculosis screening: No symptoms or risk factors identified. Fall Risk None identified. Assessment: 09:34 General: Appears in no apparent distress. Behavior is cooperative, anxious. General: ll1 See triage assessment.. GI: Reports lower abdominal pain, nausea. 11:00 Reassessment: Patient appears in no apparent distress at this time. Patient and/or ph family updated on plan of care and expected duration. Pain level reassessed. Patient is alert, oriented x 3, equal unlabored respirations, skin warm/dry/pink. Pt d/c home w/ SO. Vital Signs: 09:18 BP 112 / 70; Pulse 69; Resp 18; Temp 98.0; Pulse Ox 99% on R/A; Weight 63.5 kg; Height ph 5 ft. 4 in. (162.56 cm); 10:38 BP 110 / 63; Pulse 58; Resp 16; Pulse Ox 100% ; Pain 1/10; ll1 11:00 Temp 97.; ph 09:18 Body Mass Index 24.03 (63.50 kg, 162.56 cm) ph ED Course: 08:53 Patient arrived in ED. rg4 08:59 Rosalie Beavers FNP-C [facility] kb 08:59 Luke Giang MD is Attending Physician. kb 09:09 Irina Franklin RN is Primary Nurse. ph 09:18 Triage completed. ph 09:23 Patient has correct armband on for positive identification. Bed in low position. Call ph light in reach. Side rails up X 1. Pulse ox on. NIBP on. Door closed. Noise minimized. 09:23 Arm band placed on. ph 09:28 EKG done, by medical technologist. reviewed by Rosalie LINK. at1 09:32 Inserted saline lock: 20 gauge in right antecubital area, using aseptic technique. ll1 Blood collected. 10:29 US Transvaginal Ob In Process Unspecified. EDMS 11:00 No provider procedures requiring assistance completed. IV discontinued, intact, ph bleeding controlled, No redness/swelling at site. Pressure dressing applied. Administered Medications: No medications were administered Outcome: 10:37 Discharge ordered by . syed 11:00 Discharged to home ambulatory, with significant other. ph 11:00 Condition: good 11:00 Discharge instructions given to patient, Instructed on discharge instructions, follow up and referral plans. Demonstrated understanding of instructions, follow-up care. 11:01 Patient left the ED. ph Signatures: Dispatcher [employer] EDDC Rosalie Beavers, CHEMICAL SPRAYER-C CHEMICAL SPRAYER-CkDevora Roy, groover runner EKG Tat1 Irina Franklin, RN RN Ame James rg4 Greta Banks RN RN ll1
--- NOTE | 2019-08-15 10:38 | EDPHYS ---
Physician Documentation [facility] Name: Subha Fan Age: 28 yrs Sex: Female : 1990 Arrival Date: 08/15/2019 Time: 08:53 Bed 7 Private MD: ED Physician Luke Giang HPI: 08/15 10:14 This 28 yrs old Female presents to ER via Ambulatory with complaints of kb Abnormal Lab Results. 10:14 The patient presents to the emergency department with abdominal pain, elevated Hcg. kb course: care: none. Previous pregnancies: the patient has never been . Associated signs and symptoms: Pertinent positives: abdominal pain. The patient has not experienced similar symptoms in the past. The patient has been recently seen by a physician: the patient's primary care provider. Pt reports she went to her PCP yesterday for a sinus infection and he did a urine test that had a positive results so he ordered her hcg level. Pt got a call this morning that she needed to come to the ER immediately for a possible ectopic . Pt reports intermittent lower abd pain that is sometimes on right and other times on the left. Denies vaginal bleeding. States she has been trying to get and had a positive test on Wednesday, then an inconclusive test. . [facility] EXPERIENCE STRATEGY: 09:18 LMP 08/04/2019 ph 10:14 1, 0, Living 0, LMP 08/04/2019 kb Historical: - Allergies: 09:20 Ceclor; ph 09:20 PENICILLINS; ph - Home Meds: 09:20 Estrostep Fe-28 1-20(5)/1-30(7) /1mg-35mcg (9) Oral tab 1 tab once daily [Active]; ph Flonase 50 mcg/actuation Nasal spsn 1 spray once daily [Active]; Singulair 10 mg Oral tab 1 tab once daily [Active]; Zyrtec 10 mg Oral tab 1 tab once daily [Active]; - PMHx: 09:20 Asthma; Migraines; ph - PSHx: 09:20 Left Knee; ph - Immunization history:: Adult Immunizations not up to date. - Coronavirus screen:: The patient has NOT traveled to [place] in the past 14 days. The patient has NOT had contact with known/suspected case of Coronavirus?. - Social history:: Smoking status: Patient denies any tobacco usage or history of. - Ebola Screening: : No symptoms or risks identified at this time. ROS: 10:17 Constitutional: Negative for fever, chills, and weight loss, ENT: Negative for injury, kb pain, and discharge, Neck: Negative for injury, pain, and swelling, Cardiovascular: Negative for chest pain, palpitations, and edema, Respiratory: Negative for shortness of breath, cough, wheezing, and pleuritic chest pain, Back: Negative for injury and pain, : Negative for injury, bleeding, discharge, and swelling, MS/Extremity: Negative for injury and deformity, Skin: Negative for injury, rash, and discoloration, Neuro: Negative for headache, weakness, numbness, tingling, and seizure. 10:17 Abdomen/GI: Positive for abdominal pain. Exam: 10:17 Constitutional: This is a well developed, well nourished patient who is awake, alert, kb and in no acute distress. Head/Face: Normocephalic, atraumatic. ENT: Nares patent. No nasal discharge, no septal abnormalities noted. Tympanic membranes are normal and external auditory canals are clear. Oropharynx with no redness, swelling, or masses, exudates, or evidence of obstruction, uvula midline. Mucous membranes moist. Neck: Trachea midline, no thyromegaly or masses palpated, and no cervical lymphadenopathy. Supple, full range of motion without nuchal rigidity, or vertebral point tenderness. No Meningismus. Chest/axilla: Normal chest wall appearance and motion. Nontender with no deformity. No lesions are appreciated. Cardiovascular: Regular rate and rhythm with a normal S1 and S2. No gallops, murmurs, or rubs. Normal PMI, no JVD. No pulse deficits. Respiratory: Lungs have equal breath sounds bilaterally, clear to auscultation and percussion. No rales, rhonchi or wheezes noted. No increased work of breathing, no retractions or nasal flaring. Abdomen/GI: Soft, non-tender, with normal bowel sounds. No distension or tympany. No guarding or rebound. No evidence of tenderness throughout. Skin: Warm, dry with normal turgor. Normal color with no rashes, no lesions, and no evidence of cellulitis. MS/ Extremity: Pulses equal, no cyanosis. Neurovascular intact. Full, normal range of motion. Neuro: Awake and alert, GCS 15, oriented to person, place, time, and situation. Cranial nerves II-XII grossly intact. Motor strength 5/5 in all extremities. Sensory grossly intact. Cerebellar exam normal. Normal gait. Vital Signs: 09:18 BP 112 / 70; Pulse 69; Resp 18; Temp 98.0; Pulse Ox 99% on R/A; Weight 63.5 kg; Height ph 5 ft. 4 in. (162.56 cm); 10:38 BP 110 / 63; Pulse 58; Resp 16; Pulse Ox 100% ; Pain 1/10; ll1 11:00 Temp 97.; ph 09:18 Body Mass Index 24.03 (63.50 kg, 162.56 cm) ph MDM: 09:01 Patient medically screened. kb 10:13 Data reviewed: vital signs, nurses notes. Data interpreted: Pulse oximetry: on room air kb is 99 %. Interpretation: normal. 10:36 Counseling: I had a detailed discussion with the patient and/or guardian regarding: the kb historical points, exam findings, and any diagnostic results supporting the discharge/admit diagnosis, lab results, radiology results, the need for outpatient follow up, an OB/Gyne specialist, to return to the emergency department if symptoms worsen or persist or if there are any questions or concerns that arise at home. 08/15 09:13 Order name: Quantitative Hcg; Complete Time: 10:27 kb 08/15 09:13 Order name: Abo/rh Typing; Complete Time: 09:56 kb 08/15 09:13 Order name: Basic Metabolic Panel; Complete Time: 10:27 kb 08/15 09:13 Order name: CBC with Diff kb 08/15 09:35 Order name: Urine Dipstick--Ancillary (enter results) bd 08/15 09:35 Order name: Urine --Ancillary (enter results) bd 08/15 09:13 Order name: Urine Test (obtain specimen); Complete Time: 09:37 kb 08/15 09:13 Order name: IV Saline Lock; Complete Time: 09:32 kb 08/15 09:13 Order name: Labs collected and sent; Complete Time: 09:32 kb 08/15 09:13 Order name: NPO; Complete Time: 09:32 kb 08/15 09:31 Order name: US Transvaginal Ob kb 08/15 09:40 Order name: Urine --Ancillary; Complete Time: 09:41 EDMS 08/15 09:40 Order name: Urine Dipstick-Ancillary; Complete Time: 09:41 EDMS 08/15 09:41 Order name: CBC with Automated Diff EDMS 08/15 09:13 Order name: Urine Dipstick-Ancillary (obtain specimen); Complete Time: 09:37 kb Administered Medications: No medications were administered Disposition: 08/16 06:47 Co-signature as Attending Physician, Luke Giang MD I agree with the assessment and kdr plan of care. Disposition: 08/15/19 10:37 Discharged to Home. Impression: Less than 8 weeks gestation of . - Condition is Stable. - Discharge Instructions: First Trimester of , [id number]. - Medication Reconciliation Form, Thank You Letter, Antibiotic Education, Prescription Opioid Use, Work release form form. - Follow up: Emergency Department; When: As needed; Reason: Worsening of condition. Follow up: Private Physician; When: 2 - 3 days; Reason: Recheck today's complaints, Continuance of care, Re-evaluation by your physician. Signatures: Dispatcher [employer] EDMA Rosalie Beavers, SCALE EXPERT-C SCALE EXPERT-Luke Walters MD MD [facility] Irina Franklin RN RN Corrections: (The following items were deleted from the chart) 08/15 11:01 10:37 08/15/2019 10:37 Discharged to Home. Impression: Less than 8 weeks gestation of ph . Condition is Stable. Forms are Medication Reconciliation Form, Thank You Letter, Antibiotic Education, Prescription Opioid Use. Follow up: Emergency Department; When: As needed; Reason: Worsening of condition. Follow up: Private Physician; When: 2 - 3 days; Reason: Recheck today's complaints, Continuance of care, Re-evaluation by your physician. kb
--- NOTE | 2019-08-15 11:08 | RAD REPORT ---
EXAM DESCRIPTION: US - Transvaginal OB - 08/15/2019 10:26 am CLINICAL HISTORY: ABD PAIN COMPARISON: No comparisons FINDINGS: A single gestational sac is seen within the uterus. The shape of the sac is within normal limits for gestational age. Within the sac is a single pole with crown-rump length of 11 mm, co rrelating to estimated gestational age of 7 weeks 1 days. Estimated date of delivery is 04/01/2020. Heart rate is 162 BPM. The placenta is not yet developed due to early gestational age. 15 x 9 mm subchorionic bleed is prese nt. The maternal adnexa and ovaries are within normal limits. Normal Doppler blood flow was demonstrated to both ovaries. IMPRESSION: Single live early intrauterine gestation with estimated gestational age of 7 weeks 1 day , KACEY 04/01/2020. 15 x 9 mm subchorionic bleed.
[2019-08-15 11:10] VITALS: BP 110/63; O2SAT 100
[2019-08-15 11:11] VITALS: TEMP 97
== END 2019-08-15 11:01 | disposition home or self-care (01) ==
LOC: ER 08:50
DX: O26.891 Other specified pregnancy related conditions, first trimester (principal); O99.511 Diseases of the respiratory system complicating pregnancy, first trimester; J45.909 Unspecified asthma, uncomplicated; Z3A.01 Less than 8 weeks gestation of pregnancy
CPT/HCPCS: 36415; 76817; 80048; 81003; 81025; 84702; 85025; 86900; 86901; 99284

== ENCOUNTER 2021-10-07 07:51 | Emergency (ER) | payer OTHER ==
--- OUTSIDE RECORDS SUMMARY | 2021-10-07 08:00 | XMS REPORT | Continuity of Care Document ---
:1990 Author Organization [facility] t Address [facility] [address] [place] [address] Care Team Providers Name Role Phone Keith CUEVAS Attending Clinician KEITH Attending Clinician Unavailable Enriqueta Alva MD Attending Clinician Dennis Galvan DO Attending Clinician Doctor Unassigned, Name Attending Clinician Unavailable Sumit SAEZ Attending Clinician ADUM, L Attending Clinician Unavailable SUMIT Attending Clinician Unavailable Only, Test Attending Clinician Unavailable Bashir SAEZ Attending Clinician ENRIQUETA ALVA Attending Clinician Unavailable 2, Lab Attending Clinician Unavailable Ultrasound Attending Clinician Unavailable Jose Alfredo SAEZ Attending Clinician Ultrasound, Mfm Attending Clinician Unavailable Nurse, Women's Health Attending Clinician Unavailable ENRIQUETA ALVA Admitting Clinician Unavailable Enriqueta Alva MD Admitting Clinician Payers Payer Name Policy Type Policy Number Effective Date Expiration Date Lesia [facility] [id number] 2018 00:00:00 Problems Condition Condition Condition Status Onset Resolution Last Treating Co mments Source Name Details Category Date Date Treatment Clinician Date Depression Depression Disease Active 2019-06 U rohini , , 1-17 ity of unspecifie [place] 00 Medical depression depression Br anch type type Liveborn Liveborn Disease Active 2019-06 Unive rs , of infant, of 0-06 [place] y of [place] , , 00 [place] dical born in born in [facility] by vaginal by vaginal delivery delivery Encounter Encounter Disease Active 2019-06 Uni vers for for 0-05 ity of elective elective 00:00: [place] induction induction 00 Medi magnus of labor of labor [place] History of History of Disease Active 2020-1 U nivers depression depression 0-05 it y of 00:00: [place] 00 Medical Branch History of History of Disease Active 2020-1 U nivers asthma asthma 0-05 ity of 00:00: [place] 00 Medical Branch Encounter Encounter Disease Active 2020-0 Uni vers for for 2-26 ity of supervisio supervisio [place] of n of 00 Medical normal normal Branch first first in third in third trimester trimester Nausea and Nausea and Disease Active 2020-0 U nivers vomiting vomiting 2-26 ity of during during 00:00: [place] 00 [facility] prior to prior to [place] 22 weeks 22 weeks gestation gestation Vaginal Vaginal Disease Active 2020-0 Univers discharge discharge 2-26 ity of 00:00: [place] [address] [facility] 7 weeks 7 weeks Disease Active 2020-0 Univers gestation gestation 2-26 ity of of of 00:00: [place] 00 [facility] 11 weeks 11 weeks Disease Active 2020-0 Unive rs gestation gestation 2-26 ity of of of 00:00: [place] 00 [facility] 15 weeks 15 weeks Disease Active 2020-0 Unive rs gestation gestation 2-26 ity of of of 00:00: [place] 00 [facility] 28 weeks 28 weeks Disease Active 2020-0 Unive rs gestation gestation 2-26 ity of of of 00:00: [place] 00 [facility] 34 weeks 34 weeks Disease Active 2020-0 Unive rs gestation gestation 2-26 ity of of of 00:00: [place] 00 [facility] 36 weeks 36 weeks Disease Active 2020-0 Unive rs gestation gestation 2-26 ity of of of 00:00: [place] 00 [facility] 38 weeks 38 weeks Disease Active 2020-0 Unive rs gestation gestation 2-26 ity of of of 00:00: [place] 00 [facility] 39 weeks 39 weeks Disease Active 2020-0 Unive rs gestation gestation 2-26 ity of of of 00:00: [place] 00 [facility] Uses Uses Disease Active 2016-06 Univers vaginal vaginal 1-07 ity of contracept contracept 00:00: [place] daily edith ring edith ring 00 Medica l [place] Irregular Irregular Disease Active Uni vers menstrual menstrual 02-23 ity of cycle cycle 00:00: [place] 00 Medical Branch Excessive Excessive Disease Active Uni vers or or 905 ity of frequent frequent 00:00: [place] menstruati menstruati 00 Me dical on on Branch Breakthrou Breakthrou Disease Active U rohini gh gh 02-23 ity of bleeding bleeding 00:00: [place] on OCPs on OCPs 00 Medical [place] Abdominal Abdominal Disease Active Uni vers bloating bloating 05 it[place] of associated associated [place] with with 00 Medical menstruati menstruati Br anch on on Dysmenorrh Dysmenorrh Disease Active U rohini ea ea 02-23 ity of 00:00: [place] 00 Medical Branch Elevated Elevated Disease Active Unive rs blood blood 2-20 ity of pressure pressure 00:00: [place] reading reading Medical [place] Allergies, Adverse Reactions, Alerts Allergy Allergy Status Severity Reaction(s) Onset Inactive Treating Comm ents Source Name Type Date Date Clinician LIBORIO DRUG Active Low N/V 2019-06 Univers INGREDI 0-05 ity of 00:00: [place] [facility] Liborio Drug Active Nausea 2019-06 Univers Intolera and/or 0-05 ity of nce Vomiting 00:00: [place] 00 Medical Branch PENICILL Drug Active Unknown-Cmnt Un matilda INS Class 02-23 ity of 00:00: [place] [facility] Penicill Propensi Active Unknown - seizure Un matilda ins ty to See comments 02-23 ity of adverse 00:00: [place] reaction 00 Medical s Branch CEFACLOR DRUG Active Rash Univers INGREDI - ity of 00:00: [place] [facility] Cefaclor Propensi Active Rash Univer s ty to 03-14 ity of adverse 00:00: [place] reaction 00 Medical s [place] Social History Social Habit Start Date Stop Date Quantity Comments Source ASSERTION 2019-07-07 University of 00:00:00 [facility] Exposure to Not sure University of SARS-CoV-2 [facility] (event) [place] Alcohol intake 2020-10-23 2020-10-23 Ex-drinker University of 00:00:00 00:00:00 (finding) [facility] Tobacco use and 2020-10-23 2020-10-23 Never used Universit y of exposure 00:00:00 00:00:00 [place] [facility] Alcohol Comment 2019-03-07 2019-03-07 rare Universit y of 00:00:00 00:00:00 [facility] Sex Ass[birth year] At [birth year] Universit y of 00:00:00 00:00:00 [facility] Smoking Status Start Date Stop Date Source Never smoker [facility] Medications Ordered Filled Start Stop Current Ordering Indication Dosage Frequency Signature Comments Components Source Medication Medication Date Date Medication? Clinician (SIG) Name Name celena Yes [id number] 1{tbl} Take 1 Univers ne 0.35 mg 2-24 tablet by ity of tablet 00:00: mouth [place] 00 daily. [facility] [id number] 1{tbl} Take 1 Univers ne 0.35 mg 2-24 tablet by ity of tablet 00:00: mouth [place] 00 daily. Medical [facility] [id number] 1{tbl} Take 1 Univers ne 0.35 mg 2-24 tablet by ity of tablet 00:00: mouth [place] 00 daily. Medical [facility] Yes [id number] 1{tbl} Take 1 Univers ne 0.35 mg 2-24 tablet by ity of tablet 00:00: mouth [place] 00 daily. [facility] Yes [id number] 1{tbl} Take 1 Univers ne 0.35 mg 2-24 tablet by ity of tablet 00:00: mouth [place] 00 daily. Medical Branch [facility]- No [id number] 1{tbl} Take 1 Univers ne 0.35 mg 2-24 05-05 tablet by ity of tablet 00:00: 00:00 mouth [place] 00 :00 daily. Medical Branch [facility] 2020- No [id number] 1{tbl} Take 1 Univers ne 0.35 mg 2-24 05-05 tablet by ity of tablet 00:00: 00:00 mouth [place] 00 :00 daily. Medical Branch [id number] 2019-06 Yes Take by Shiva matilda 3-dha-epa-f 0-27 mouth. ity of radha oil 16:26: [place] ( 52 Medical GUMMY) 400 Branch mcg-35 mg -25 mg-5 mg Chew [id number] 2020- Yes Take by Un matilda 3-dha-epa-f 0-27 mouth. ity of radha oil 16:26: [place] ( 52 Medical GUMMY) 400 Branch mcg-35 mg -25 mg-5 mg Chew [id number] 2020- Yes Take by Un matilda 3-dha-epa-f 0-27 mouth. ity of radha oil 16:26: [place] ( 52 Medical GUMMY) 400 Branch mcg-35 mg -25 mg-5 mg Chew [id number] 2020- Yes Take by Un matilda 3-dha-epa-f 0-27 mouth. ity of radha oil 16:26: [place] ( 52 Medical GUMMY) 400 Branch mcg-35 mg -25 mg-5 mg Chew [id number] 2020- Yes Take by Un matilda 3-dha-epa-f 0-27 mouth. ity of radha oil 16:26: [place] ( 52 Medical GUMMY) 400 Branch mcg-35 mg -25 mg-5 mg Chew [id number] 2020- Yes Take by Un matilda 3-dha-epa-f 0-27 mouth. ity of radha oil 16:26: [place] ( 52 Medical GUMMY) 400 Branch mcg-35 mg -25 mg-5 mg Chew [id number] 2020- Yes Take by Un matilda 3-dha-epa-f 0-27 mouth. ity of radha oil 16:26: [place] ( 52 Medical GUMMY) 400 Branch mcg-35 mg -25 mg-5 mg Chew [id number] 2020- Yes Take by Un matilda 3-dha-epa-f 0-27 mouth. ity of radha oil 16:26: [place] ( 52 Medical GUMMY) 400 Branch mcg-35 mg -25 mg-5 mg Chew [id number] 2020-1 Yes Take by Un matilda 3-dha-epa-f 0-27 mouth. ity of radha oil 16:26: [place] ( 52 Medical GUMMY) 400 Branch mcg-35 mg -25 mg-5 mg Chew [id number] 2020- Yes Take by Un matilda 3-dha-epa-f 0-27 mouth. ity of radha oil 16:26: [place] ( 52 Medical GUMMY) 400 Branch mcg-35 mg -25 mg-5 mg Chew [id number] 2020- Yes Take by Un matilda 3-dha-epa-f 0-27 mouth. ity of radha oil 16:26: [place] ( 52 Medical GUMMY) 400 Branch mcg-35 mg -25 mg-5 mg Chew [id number] 2020- Yes Take by Un matilda 3-dha-epa-f 0-27 mouth. ity of radha oil 16:26: [place] ( 52 Medical GUMMY) 400 Branch mcg-35 mg -25 mg-5 mg Chew [id number] 2020- Yes Take by Un matilda 3-dha-epa-f 0-27 mouth. ity of radha oil 16:26: [place] ( 52 Medical GUMMY) 400 Branch mcg-35 mg -25 mg-5 mg Chew [id number] 2019- Yes Take by Un matilda 3-dha-epa-f 0-27 mouth. ity of radha oil 16:26: [place] ( 52 Medical GUMMY) 400 Branch mcg-35 mg -25 mg-5 mg Chew [id number] 2019- Yes Take by Un matilda 3-dha-epa-f 0-07 mouth. ity of radha oil 20:04: [place] ( 53 Medical GUMMY) 400 Branch mcg-35 mg -25 mg-5 mg Chew [id number] 2019- Yes Take by Un matilda 3-dha-epa-f 0-07 mouth. ity of radha oil 20:04: [place] ( 53 Medical GUMMY) 400 Branch mcg-35 mg -25 mg-5 mg Chew 2019- Yes [id number] 1{tbl} Take 1 Univers vitamin 0-07 102 tablet by ity of w/FA tablet 00:00: mouth [place] 00 daily. Medical Branch docusate 2019- Yes [id number] 240mg Take 1 Univers calcium 240 0-07 102 capsule by it y of mg capsule 00:00: mouth [place] 00 daily as Medical needed for Branch Constipati on. ferrous 2019- Yes [id number] 325mg Take 1 Univers sulfate 325 0-07 102 tablet by ity of mg (65 mg 00:00: mouth 2 [place] iron) 00 (two) Medical tablet times Branch daily. ibuprofen 2019-06 Yes [id number] 600mg Take 1 Univers 600 mg 0-07 102 tablet by ity of tablet 00:00: mouth [place] 00 every 6 Medical (six) Branch hours as needed (Pain). Take with food or milk. 2019-06 Yes [id number] 1{tbl} Take 1 Univers vitamin 0-07 102 tablet by ity of w/FA tablet 00:00: mouth [place] 00 daily. Medical Branch docusate 2019-06 Yes [id number] 240mg Take 1 Univers calcium 240 0-07 102 capsule by it y of mg capsule 00:00: mouth once [place] 00 daily as Medical needed for Branch Constipati on. ferrous 2019-06 Yes [id number] 325mg Take 1 Univers sulfate 325 0-07 102 tablet by ity of mg (65 mg 00:00: mouth 2 [place] iron) 00 (two) Medical tablet times Branch daily. ibuprofen 2019-06 Yes [id number] 600mg Take 1 Univers 600 mg 0-07 102 tablet by ity of tablet 00:00: mouth [place] 00 every 6 Medical (six) Branch hours as needed (Pain). Take with food or milk. 2019-06 Yes [id number] 1{tbl} Take 1 Univers vitamin 0-07 102 tablet by ity of w/FA tablet 00:00: mouth [place] 00 daily. Medical Branch docusate 2019-06 Yes [id number] 240mg Take 1 Univers calcium 240 0-07 102 capsule by it y of mg capsule 00:00: mouth once [place] 00 daily as Medical needed for Branch Constipati on. ferrous 2019-06 Yes [id number] 325mg Take 1 Univers sulfate 325 0-07 102 tablet by ity of mg (65 mg 00:00: mouth 2 [place] iron) 00 (two) Medical tablet times Branch daily. ibuprofen 2019-06 Yes [id number] 600mg Take 1 Univers 600 mg 0-07 102 tablet by ity of tablet 00:00: mouth [place] 00 every 6 Medical (six) Branch hours as needed (Pain). Take with food or milk. 2019-06 Yes [id number] 1{tbl} Take 1 Univers vitamin 0-07 102 tablet by ity of w/FA tablet 00:00: mouth [place] 00 daily. Medical Branch docusate 2020-1 Yes [id number] 240mg Take 1 Univers calcium 240 0-07 102 capsule by it y of mg capsule 00:00: mouth once [place] 00 daily as Medical needed for Branch Constipati on. ferrous 2020- Yes [id number] 325mg Take 1 Univers sulfate 325 0-07 102 tablet by ity of mg (65 mg 00:00: mouth 2 [place] iron) 00 (two) Medical tablet times Branch daily. ibuprofen 2019-06 Yes [id number] 600mg Take 1 Univers 600 mg 0-07 102 tablet by ity of tablet 00:00: mouth [place] 00 every 6 Medical (six) Branch hours as needed (Pain). Take with food or milk. 2019-06 Yes [id number] 1{tbl} Take 1 Univers vitamin 0-07 102 tablet by ity of w/FA tablet 00:00: mouth [place] 00 daily. Medical Branch docusate 2019-06 Yes [id number] 240mg Take 1 Univers calcium 240 0-07 102 capsule by it y of mg capsule 00:00: mouth once [place] 00 daily as Medical needed for Branch Constipati on. ferrous 2019-06 Yes [id number] 325mg Take 1 Univers sulfate 325 0-07 102 tablet by ity of mg (65 mg 00:00: mouth 2 [place] iron) 00 (two) Medical tablet times Branch daily. ibuprofen 2019-06 Yes [id number] 600mg Take 1 Univers 600 mg 0-07 102 tablet by ity of tablet 00:00: mouth [place] 00 every 6 Medical (six) Branch hours as needed (Pain). Take with food or milk. 2019-06 Yes [id number] 1{tbl} Take 1 Univers vitamin 0-07 102 tablet by ity of w/FA tablet 00:00: mouth [place] 00 daily. Medical Branch docusate 2019-06 Yes [id number] 240mg Take 1 Univers calcium 240 0-07 102 capsule by it y of mg capsule 00:00: mouth once [place] 00 daily as Medical needed for Branch Constipati on. ferrous 2019-06 Yes [id number] 325mg Take 1 Univers sulfate 325 0-07 102 tablet by ity of mg (65 mg 00:00: mouth 2 [place] iron) 00 (two) Medical tablet times Branch daily. ibuprofen 2019-06 Yes [id number] 600mg Take 1 Univers 600 mg 0-07 102 tablet by ity of tablet 00:00: mouth [place] 00 every 6 Medical (six) Branch hours as needed (Pain). Take with food or milk. 2019-06 Yes [id number] 1{tbl} Take 1 Univers vitamin 0-07 102 tablet by ity of w/FA tablet 00:00: mouth [place] 00 daily. Medical Branch docusate 2019-06 Yes [id number] 240mg Take 1 Univers calcium 240 0-07 102 capsule by it y of mg capsule 00:00: mouth once [place] 00 daily as Medical needed for Branch Constipati on. ferrous 2019-06 Yes [id number] 325mg Take 1 Univers sulfate 325 0-07 102 tablet by ity of mg (65 mg 00:00: mouth 2 [place] iron) 00 (two) Medical tablet times Branch daily. ibuprofen 2019-06 Yes [id number] 600mg Take 1 Univers 600 mg 0-07 102 tablet by ity of tablet 00:00: mouth [place] 00 every 6 Medical (six) Branch hours as needed (Pain). Take with food or milk. 2019-06 Yes [id number] 1{tbl} Take 1 Univers vitamin 0-07 102 tablet by ity of w/FA tablet 00:00: mouth [place] 00 daily. Medical Branch docusate 2019-06 Yes [id number] 240mg Take 1 Univers calcium 240 0-07 102 capsule by it y of mg capsule 00:00: mouth once [place] 00 daily as Medical needed for Branch Constipati on. ferrous 2019-06 Yes [id number] 325mg Take 1 Univers sulfate 325 0-07 102 tablet by ity of mg (65 mg 00:00: mouth 2 [place] iron) 00 (two) Medical tablet times Branch daily. ibuprofen 2019-06 Yes [id number] 600mg Take 1 Univers 600 mg 0-07 102 tablet by ity of tablet 00:00: mouth [place] 00 every 6 Medical (six) Branch hours as needed (Pain). Take with food or milk. 2019-06 Yes [id number] 1{tbl} Take 1 Univers vitamin 0-07 102 tablet by ity of w/FA tablet 00:00: mouth [place] 00 daily. Medical Branch docusate 2019-06 Yes [id number] 240mg Take 1 Univers calcium 240 0-07 102 capsule by it y of mg capsule 00:00: mouth once [place] 00 daily as Medical needed for Branch Constipati on. ferrous 2019-06 Yes [id number] 325mg Take 1 Univers sulfate 325 0-07 102 tablet by ity of mg (65 mg 00:00: mouth 2 [place] iron) 00 (two) Medical tablet times Branch daily. ibuprofen 2019-06 Yes [id number] 600mg Take 1 Univers 600 mg 0-07 102 tablet by ity of tablet 00:00: mouth [place] 00 every 6 Medical (six) Branch hours as needed (Pain). Take with food or milk. 2019-06 Yes [id number] 1{tbl} Take 1 Univers vitamin 0-07 102 tablet by ity of w/FA tablet 00:00: mouth [place] 00 daily. Medical Branch docusate 2019-06 Yes [id number] 240mg Take 1 Univers calcium 240 0-07 102 capsule by it y of mg capsule 00:00: mouth once [place] 00 daily as Medical needed for Branch Constipati on. ferrous 2019-06 Yes [id number] 325mg Take 1 Univers sulfate 325 0-07 102 tablet by ity of mg (65 mg 00:00: mouth 2 [place] iron) 00 (two) Medical tablet times Branch daily. ibuprofen 2019-06 Yes [id number] 600mg Take 1 Univers 600 mg 0-07 102 tablet by ity of tablet 00:00: mouth [place] 00 every 6 Medical (six) Branch hours as needed (Pain). Take with food or milk. 2019-06 Yes [id number] 1{tbl} Take 1 Univers vitamin 0-07 102 tablet by ity of w/FA tablet 00:00: mouth [place] 00 daily. Medical Branch docusate 2019-06 Yes [id number] 240mg Take 1 Univers calcium 240 0-07 102 capsule by it y of mg capsule 00:00: mouth once [place] 00 daily as Medical needed for Branch Constipati on. ferrous 2019-06 Yes [id number] 325mg Take 1 Univers sulfate 325 0-07 102 tablet by ity of mg (65 mg 00:00: mouth 2 [place] iron) 00 (two) Medical tablet times Branch daily. ibuprofen 2019-06 Yes [id number] 600mg Take 1 Univers 600 mg 0-07 102 tablet by ity of tablet 00:00: mouth [place] 00 every 6 Medical (six) Branch hours as needed (Pain). Take with food or milk. 2019- Yes [id number] 1{tbl} Take 1 Univers vitamin 0-07 102 tablet by ity of w/FA tablet 00:00: mouth [place] 00 daily. Medical Branch docusate 2019-06 Yes [id number] 240mg Take 1 Univers calcium 240 0-07 102 capsule by it y of mg capsule 00:00: mouth once [place] 00 daily as Medical needed for Branch Constipati on. ferrous 2019-06 Yes [id number] 325mg Take 1 Univers sulfate 325 0-07 102 tablet by ity of mg (65 mg 00:00: mouth 2 [place] iron) 00 (two) Medical tablet times Branch daily. ibuprofen 2019-06 Yes [id number] 600mg Take 1 Univers 600 mg 0-07 102 tablet by ity of tablet 00:00: mouth [place] 00 every 6 Medical (six) Branch hours as needed (Pain). Take with food or milk. 2019-06 Yes [id number] 1{tbl} Take 1 Univers vitamin 0-07 102 tablet by ity of w/FA tablet 00:00: mouth [place] 00 daily. Medical Branch docusate 2019-06 Yes [id number] 240mg Take 1 Univers calcium 240 0-07 102 capsule by it y of mg capsule 00:00: mouth once [place] 00 daily as Medical needed for Branch Constipati on. ferrous 2019-06 Yes [id number] 325mg Take 1 Univers sulfate 325 0-07 102 tablet by ity of mg (65 mg 00:00: mouth 2 [place] iron) 00 (two) Medical tablet times Branch daily. ibuprofen 2019-06 Yes [id number] 600mg Take 1 Univers 600 mg 0-07 102 tablet by ity of tablet 00:00: mouth [place] 00 every 6 Medical (six) Branch hours as needed (Pain). Take with food or milk. 2019-06 Yes [id number] 1{tbl} Take 1 Univers vitamin 0-07 102 tablet by ity of w/FA tablet 00:00: mouth [place] 00 daily. Medical Branch docusate 2019-06 Yes [id number] 240mg Take 1 Univers calcium 240 0-07 102 capsule by it y of mg capsule 00:00: mouth once [place] 00 daily as Medical needed for Branch Constipati on. ferrous 2019-06 Yes [id number] 325mg Take 1 Univers sulfate 325 0-07 102 tablet by ity of mg (65 mg 00:00: mouth 2 [place] iron) 00 (two) Medical tablet times Branch daily. ibuprofen 2019-06 Yes [id number] 600mg Take 1 Univers 600 mg 0-07 102 tablet by ity of tablet 00:00: mouth [place] 00 every 6 Medical (six) Branch hours as needed (Pain). Take with food or milk. 2019-06 Yes [id number] 1{tbl} Take 1 Univers vitamin 0-07 102 tablet by ity of w/FA tablet 00:00: mouth [place] 00 daily. Medical Branch docusate 2019-06 Yes [id number] 240mg Take 1 Univers calcium 240 0-07 102 capsule by it y of mg capsule 00:00: mouth once [place] 00 daily as Medical needed for Branch Constipati on. ferrous 2019-06 Yes [id number] 325mg Take 1 Univers sulfate 325 0-07 102 tablet by ity of mg (65 mg 00:00: mouth 2 [place] iron) 00 (two) Medical tablet times Branch daily. ibuprofen 2019-06 Yes [id number] 600mg Take 1 Univers 600 mg 0-07 102 tablet by ity of tablet 00:00: mouth [place] 00 every 6 Medical (six) Branch hours as needed (Pain). Take with food or milk. 2019-06 Yes [id number] 1{tbl} Take 1 Univers vitamin 0-07 102 tablet by ity of w/FA tablet 00:00: mouth [place] 00 daily. Medical Branch docusate 2019-06 Yes [id number] 240mg Take 1 Univers calcium 240 0-07 102 capsule by it y of mg capsule 00:00: mouth once [place] 00 daily as Medical needed for Branch Constipati on. ferrous 2019-06 Yes [id number] 325mg Take 1 Univers sulfate 325 0-07 102 tablet by ity of mg (65 mg 00:00: mouth 2 [place] iron) 00 (two) Medical tablet times Branch daily. ibuprofen 2019-06 Yes [id number] 600mg Take 1 Univers 600 mg 0-07 102 tablet by ity of tablet 00:00: mouth [place] 00 every 6 Medical (six) Branch hours as needed (Pain). Take with food or milk. cetirizine 2019-06 Yes 10mg 10 mg, Unive rs (ZYRTEC) 0-06 Oral, ity of tablet 10 14:00: DAILY, [place] mg 00 First dose Medical on Wed Branch 03/26/20 at 0900, Until Discontinu ed, Routine montelukast 2019-06 Yes 10mg 10 mg, Univ ers (SINGULAIR) 0-06 Oral, ity of tablet 10 14:00: DAILY, [place] mg 00 First dose Medical on Tue Branch 03/26/20 at 0900, Until Discontinu ed, Routine rho(D) 2019-06 Yes 300ug 300 mcg, Univer s immune 0-06 Intramuscu ity of globulin 13:38: [place], ONCE, [place] as (RHOGAM) 01 For 1 Medical syringe 300 dose, Branch mcg Conditiona l, Routine ibuprofen 2019-06 Yes 600mg 600 mg, Univ ers (IBU) 0-06 Oral, ity of tablet 600 13:37: Q6HPRN, [place] mg 56 Starting Medical Tue Branch 03/26/20 at 0837, Until Discontinu ed, Routine, Pain (scale 4-6) ondansetron 2019-06 Yes 4mg 4 mg, Slow Univers (ZOFRAN 0-06 IV Push, ity of (PF)) 13:37: Q8HPRN, [place] injection 4 56 Starting Medi magnus mg Tue Branch 03/26/20 at 0837, Until Discontinu ed, Routine, Nausea and Vomiting (N/V) simethicone 2019-06 Yes 160mg 160 mg, Un matilda (GAS RELIEF 0-06 Oral, ity of (SIMETHICON 13:37: PC+HSPRN, [place] E)) 56 Starting Medical chewable Tue Branch tablet 160 03/26/20 at mg 0837, Until Discontinu ed, Routine, Gas docusate 2019-06 Yes 240mg 240 mg, Unive rs calcium 0-06 Oral, ity of (SURFAK) 13:37: QDAILYPRN, [place] capsule 240 56 Starting Medi magnus mg Tue Branch 03/26/20 at 0837, Until Discontinu ed, Routine, Constipati on magnesium 2019-06 Yes 30mL 30 mL, Univer s hydroxide 0-06 Oral, ity of (MILK OF 13:37: QDAILYPRN, [place] as MAGNESIA) 56 Starting Medica l 400 mg/5 mL Tue Branch suspension 03/26/20 at 30 mL 0837, Until Discontinu ed, Routine, Constipati on acetaminoph 2019-06 Yes 650mg 650 mg, Un matilda en 0-06 Oral, ity of (TYLENOL) 13:37: Q6HPRN, [place] tablet 650 55 Starting Medic al mg Wed Branch 03/26/20 at 0837, Until Discontinu ed, Routine, Pain (scale 1-3) benzocaine- 2019-06 Yes Topical, Un matilda menthol 0-06 PRN, ity of (DERMOPLAST 13:37: [place] 20-0.5 % 55 e Medical topical 03/26/20 at Branch spray 0837, Until Discontinu ed, Routine, Perineum discomfort HYDROcodone 2019-06 Yes 1{tbl} 1 tablet, Univers -acetaminop 0-06 Oral, ity of hen (NORCO 13:35: Q6HPRN, [place] 5) 5-325 mg 54 Starting Medi magnus tablet 1 Wed [place] tablet 03/26/20 at 0835, Until Discontinu ed, Routine, Pain (scale 7-10) D5W-LR IV 2019-06 2020- No 1000mL at 125 Uni vers infusion 0-05 10-06 mL/hr, IV ity o f 1,000 mL 20:00: 13:36 Infusion, [place] 00 :04 CONTINUOUS Medical , Starting Branch [facility] 03/25/20 at 1500, Until Wed03/26/20 at 0836, Routine FENTanyl PF 2019-06 2020- No 100ug 100 mcg, Univers (SUBLIMAZE 0-05 10-06 Slow IV ity o f (PF)) 19:58: 13:35 Push, [place] injection 15 :55 Q1HPRN, Medical 100 mcg Starting Branch [facility] 03/25/20 at 1458, Until Wed03/26/20 at 0835, Routine, contractio n pain without an epidural and SVE < 8 cm and Cat I strip LR 1000 mL 2019-06 2020- No 2mU/min at 6-120 Univers + oxytocin 0-05 10-06 mL/hr, IV ity of 20 units IV 19:58: 13:36 Infusion, [place] Solution 05 :04 TITRATE, Medical Starting Branch [facility] 03/25/20 at 1458, Until Wed03/26/20 at 0836, DEEDEE [id number] Yes Take by Un matilda 3-dha-epa-f 02-19 mouth. ity of radha oil 19:49: [place] ( 49 Medical GUMMY) 400 Branch mcg-35 mg -25 mg-5 mg Chew [id number] 2020-0 Yes Take by Un mat[facility] 3-dha-epa-f 02-19 mouth. ity of radha oil 19:49: [place] ( 49 Medical GUMMY) 400 Branch mcg-35 mg -25 mg-5 mg Chew [id number] 2020-0 Yes Take by [facility] 3-dha-epa-f 02-19 mouth. ity of radha oil 19:49: [place] ( 49 Medical GUMMY) 400 Branch mcg-35 mg -25 mg-5 mg Chew [id number] 2020-0 Yes Take by [facility] 3-dha-epa-f 02-19 mouth. ity of radha oil 19:49: [place] ( 49 Medical GUMMY) 400 Branch mcg-35 mg -25 mg-5 mg Chew [id number] 2020-0 Yes Take by [facility] 3-dha-epa-f 02-19 mouth. ity of radha oil 19:49: [place] ( 49 Medical GUMMY) 400 Branch mcg-35 mg -25 mg-5 mg Chew [id number] 2020-0 Yes Take by [facility] 3-dha-epa-f 02-19 mouth. ity of radha oil 19:49: [place] ( 49 Medical GUMMY) 400 Branch mcg-35 mg -25 mg-5 mg Chew [id number] 2020-0 Yes Take by [facility] 3-dha-epa-f 02-19 mouth. ity of radha oil 19:49: [place] ( 49 Medical GUMMY) 400 Branch mcg-35 mg -25 mg-5 mg Chew [id number] 2020-0 Yes Take by [facility] 3-dha-epa-f 02-19 mouth. ity of radha oil 19:49: [place] ( 49 Medical GUMMY) 400 Branch mcg-35 mg -25 mg-5 mg Chew [id number] 2020-0 Yes Take by [facility] 3-dha-epa-f 02-19 mouth. ity of radha oil 19:49: [place] ( 49 Medical GUMMY) 400 Branch mcg-35 mg -25 mg-5 mg Chew ondansetron 2020-0 2020- No Take by U nivers HCl (ZOFRAN 4-22 04-22 mouth. ity o f ORAL) 16:00: 00:00 [place] 53 :00 Medical Branch azithromyci 2020-0 2020- No 250mg Take 250 Univers n 4-22 04-22 mg by ity of (ZITHROMAX 15:47: 00:00 mouth [place] Z-RAQUEL) 250 22 :00 daily. Medical mg tablet Take 500 Branch mg day 1, then 250 mg days 2 to 5. ondansetron 2020-0 Yes Take by [facility] HCl (ZOFRAN 2-26 mouth. ity of ORAL) 15:37: [address] Branch ondansetron 2020-0 Yes Take by [facility] HCl (ZOFRAN 2-26 mouth. ity of ORAL) 15:37: [address] Branch ondansetron 2020-0 Yes Take by [facility] HCl (ZOFRAN 2-26 mouth. ity of ORAL) 15:37: [address] ondansetron 2020-0 Yes Take by [facility] HCl (ZOFRAN 2-26 mouth. ity of ORAL) 15:37: [address] Branch ondansetron 2020-0 Yes Take by [facility] HCl (ZOFRAN 2-26 mouth. ity of ORAL) 15:37: [address] Branch ondansetron 2020-0 Yes Take by [facility] HCl (ZOFRAN 2-26 mouth. ity of ORAL) 15:37: [address] ondansetron 2020-0 Yes Take by [facility] HCl (ZOFRAN 2-26 mouth. ity of ORAL) 15:37: [address] ondansetron 2020-0 Yes Take by [facility] HCl (ZOFRAN 2-26 mouth. ity of ORAL) 15:37: [address] ondansetron 2020-0 Yes Take by [facility] HCl (ZOFRAN 2-26 mouth. ity of ORAL) 15:37: [address] Branch metroNIDAZO 2020-0 Yes [id number] 500mg Take 1 [facility] LE 500 mg 2-26 tablet by ity o f tablet 00:00: mouth [place] 00 every 12 Medical (twelve) Branch hours. metroNIDAZO 2020-0 Yes [id number] 500mg Take 1 [facility] LE 500 mg 2-26 tablet by ity o f tablet 00:00: mouth [place] 00 every 12 Medical (twelve) Branch hours. metroNIDAZO 2020-0 Yes [id number] 500mg Take 1 [facility] LE 500 mg 2-26 tablet by ity o f tablet 00:00: mouth [place] 00 every 12 Medical (twelve) Branch hours. metroNIDAZO 2020-0 Yes [id number] 500mg Take 1 [facility] LE 500 mg 2-26 tablet by ity o f tablet 00:00: mouth [place] 00 every 12 Medical (twelve) Branch hours. metroNIDAZO 2020-0 Yes [id number] 500mg Take 1 [facility] LE 500 mg 2-26 tablet by ity o f tablet 00:00: mouth [place] 00 every 12 Medical (twelve) Branch hours. metroNIDAZO 2020-0 Yes [id number] 500mg Take 1 [facility] LE 500 mg 2-26 tablet by ity o f tablet 00:00: mouth [place] 00 every 12 Medical (twelve) Branch hours. metroNIDAZO 2020-0 Yes [id number] 500mg Take 1 [facility] LE 500 mg 2-26 tablet by ity o f tablet 00:00: mouth [place] 00 every 12 Medical (twelve) Branch hours. metroNIDAZO 2020-0 2020- No [id number] 500mg Take 1 [facility] LE 500 mg 2-26 04-22 tablet by ity of tablet 00:00: 00:00 mouth [place] 00 :00 every 12 Medical (twelve) Branch hours. azithromyci 2020-0 Yes 250mg Take 250 U nivers n 2-25 mg by ity of (ZITHROMAX 19:20: mouth [place] Z-RAQUEL) 250 50 daily. Medical mg tablet Take 500 Branch mg day 1, then 250 mg days 2 to 5. azithromyci 2020-0 Yes 250mg Take 250 U nivers n 2-25 mg by ity of (ZITHROMAX 19:20: mouth [place] Z-RAQUEL) 250 50 daily. Medical mg tablet Take 500 Branch mg day 1, then 250 mg days 2 to 5. azithromyci 2020-0 Yes 250mg Take 250 U nivers n 2-25 mg by ity of (ZITHROMAX 19:20: mouth [place] Z-RAQUEL) 250 50 daily. Medical mg tablet Take 500 Branch mg day 1, then 250 mg days 2 to 5. azithromyci 2020-0 Yes 250mg Take 250 U nivers n 2-25 mg by ity of (ZITHROMAX 19:20: mouth [place] Z-RAQUEL) 250 50 daily. Medical mg tablet Take 500 Branch mg day 1, then 250 mg days 2 to 5. azithromyci 2020-0 Yes 250mg Take 250 U nivers n 2-25 mg by ity of (ZITHROMAX 19:20: mouth [place] Z-RAQUEL) 250 50 daily. Medical mg tablet Take 500 Branch mg day 1, then 250 mg days 2 to 5. azithromyci 2020-0 Yes 250mg Take 250 U nivers n 2-25 mg by ity of (ZITHROMAX 19:20: mouth [place] Z-RAQUEL) 250 50 daily. Medical mg tablet Take 500 Branch mg day 1, then 250 mg days 2 to 5. azithromyci 2020-0 Yes 250mg Take 250 U nivers n 2-25 mg by ity of (ZITHROMAX 19:20: mouth [place] Z-RAQUEL) 250 50 daily. Medical mg tablet Take 500 Branch mg day 1, then 250 mg days 2 to 5. azithromyci 2020-0 Yes 250mg Take 250 U nivers n 2-25 mg by ity of (ZITHROMAX 19:20: mouth [place] Z-RAQUEL) 250 50 daily. Medical mg tablet Take 500 Branch mg day 1, then 250 mg days 2 to 5. azithromyci 2020-0 Yes 250mg Take 250 U nivers n 2-25 mg by ity of (ZITHROMAX 19:20: mouth [place] Z-RAQUEL) 250 50 daily. Medical mg tablet Take 500 Branch mg day 1, then 250 mg days 2 to 5. metoclopram 2020-0 Yes [id number] 10mg Take 1 Univers torie HCl 2-25 tablet by ity of (REGLAN) 10 00:00: mouth [place] mg tablet 00 every 6 Medical (six) Branch hours as needed for Nausea and Vomiting (N/V). metoclopram 2020-0 Yes [id number] 10mg Take 1 [facility] torie HCl 2-25 tablet by ity of (REGLAN) 10 00:00: mouth [place] mg tablet 00 every 6 Medical (six) Branch hours as needed for Nausea and Vomiting (N/V). metoclopram 2020-0 Yes [id number] 10mg Take 1 [facility] torie HCl 2-25 tablet by ity of (REGLAN) 10 00:00: mouth [place] mg tablet 00 every 6 Medical (six) Branch hours as needed for Nausea and Vomiting (N/V). metoclopram 2020-0 Yes [id number] 10mg Take 1 [facility] torie HCl 2-25 tablet by ity of (REGLAN) 10 00:00: mouth [place] mg tablet 00 every 6 Medical (six) Branch hours as needed for Nausea and Vomiting (N/V). metoclopram 2020-0 Yes [id number] 10mg Take 1 [facility] torie HCl 2-25 tablet by ity of (REGLAN) 10 00:00: mouth [place] mg tablet 00 every 6 Medical (six) Branch hours as needed for Nausea and Vomiting (N/V). metoclopram 2020-0 Yes [id number] 10mg Take 1 [facility] torie HCl 2-25 tablet by ity of (REGLAN) 10 00:00: mouth [place] mg tablet 00 every 6 Medical (six) Branch hours as needed for Nausea and Vomiting (N/V). metoclopram 2020-0 Yes [id number] 10mg Take 1 [facility] torie HCl 2-25 tablet by ity of (REGLAN) 10 00:00: mouth [place] mg tablet 00 every 6 Medical (six) Branch hours as needed for Nausea and Vomiting (N/V). metoclopram 2020-0 Yes [id number] 10mg Take 1 [facility] torie HCl 2-25 tablet by ity of (REGLAN) 10 00:00: mouth [place] mg tablet 00 every 6 Medical (six) Branch hours as needed for Nausea and Vomiting (N/V). metoclopram 2020-0 Yes [id number] 10mg Take 1 [facility] torie HCl 2-25 tablet by ity of (REGLAN) 10 00:00: mouth [place] mg tablet 00 every 6 Medical (six) Branch hours as needed for Nausea and Vomiting (N/V). metoclopram 2020-0 Yes [id number] 10mg Take 1 [facility] torie HCl 2-25 tablet by ity of (REGLAN) 10 00:00: mouth [place] mg tablet 00 every 6 Medical (six) Branch hours as needed for Nausea and Vomiting (N/V). metoclopram 2020-0 Yes [id number] 10mg Take 1 [facility] torie HCl 2-25 tablet by ity of (REGLAN) 10 00:00: mouth [place] mg tablet 00 every 6 Medical (six) Branch hours as needed for Nausea and Vomiting (N/V). metoclopram 2020-0 Yes [id number] 10mg Take 1 [facility] tor[facility] HCl 2-25 tablet by ity of (REGLAN) 10 00:00: mouth [place] mg tablet 00 every 6 Medical (six) Branch hours as needed for Nausea and Vomiting (N/V). metoclopram 2020-0 Yes [id number] 10mg Take 1 [facility] torie HCl 2-25 tablet by ity of (REGLAN) 10 00:00: mouth [place] mg tablet 00 every 6 Medical (six) Branch hours as needed for Nausea and Vomiting (N/V). metoclopram 2020-0 Yes [id number] 10mg Take 1 [facility] tor[facility] HCl 2-25 tablet by ity of (REGLAN) 10 00:00: mouth [place] mg tablet 00 every 6 Medical (six) Branch hours as needed for Nausea and Vomiting (N/V). metoclopram 2020-0 Yes [id number] 10mg Take 1 [facility] tor[facility] HCl 2-25 tablet by ity of (REGLAN) 10 00:00: mouth [place] mg tablet 00 every 6 Medical (six) Branch hours as needed for Nausea and Vomiting (N/V). metoclopram 2020-0 Yes [id number] 10mg Take 1 [facility] tor[facility] HCl 2-25 tablet by ity of (REGLAN) 10 00:00: mouth [place] mg tablet 00 every 6 Medical (six) Branch hours as needed for Nausea and Vomiting (N/V). metoclopram 2020-0 Yes [id number] 10mg Take 1 [facility] tor[facility] HCl 2-25 tablet by ity of (REGLAN) 10 00:00: mouth [place] mg tablet 00 every 6 Medical (six) Branch hours as needed for Nausea and Vomiting (N/V). metoclopram 2020-0 Yes [id number] 10mg Take 1 [facility] tor[facility] HCl 2-25 tablet by ity of (REGLAN) 10 00:00: mouth [place] mg tablet 00 every 6 Medical (six) Branch hours as needed for Nausea and Vomiting (N/V). metoclopram 2020-0 Yes [id number] 10mg Take 1 [facility] tor[facility] HCl 2-25 tablet by ity of (REGLAN) 10 00:00: mouth [place] mg tablet 00 every 6 Medical (six) Branch hours as needed for Nausea and Vomiting (N/V). metoclopram 2020-0 Yes [id number] 10mg Take 1 [facility] tor[facility] HCl 2-25 tablet by ity of (REGLAN) 10 00:00: mouth [place] mg tablet 00 every 6 Medical (six) Branch hours as needed for Nausea and Vomiting (N/V). metoclopram 2020-0 Yes [id number] 10mg Take 1 [facility] tor[facility] HCl 2-25 tablet by ity of (REGLAN) 10 00:00: mouth [place] mg tablet 00 every 6 Medical (six) Branch hours as needed for Nausea and Vomiting (N/V). metoclopram 2020-0 Yes [id number] 10mg Take 1 [facility] tor[facility] HCl 2-25 tablet by ity of (REGLAN) 10 00:00: mouth [place] mg tablet 00 every 6 Medical (six) Branch hours as needed for Nausea and Vomiting (N/V). metoclopram 2020-0 Yes [id number] 10mg Take 1 [facility] tor[facility] HCl 2-25 tablet by ity of (REGLAN) 10 00:00: mouth [place] mg tablet 00 every 6 Medical (six) Branch hours as needed for Nausea and Vomiting (N/V). metoclopram 2020-0 Yes [id number] 10mg Take 1 [facility] tor[facility] HCl 2-25 tablet by ity of (REGLAN) 10 00:00: mouth [place] mg tablet 00 every 6 Medical (six) Branch hours as needed for Nausea and Vomiting (N/V). metoclopram 2020-0 Yes [id number] 10mg Take 1 [facility] tor[facility] HCl 2-25 tablet by ity of (REGLAN) 10 00:00: mouth [place] mg tablet 00 every 6 Medical (six) Branch hours as needed for Nausea and Vomiting (N/V). metoclopram 2020-0 Yes [id number] 10mg Take 1 [facility] HCl 2-25 tablet by ity of (REGLAN) 10 00:00: mouth [place] mg tablet 00 every 6 Medical (six) Branch hours as needed for Nausea and Vomiting (N/V). metoclopram 2020-0 Yes [id number] 10mg Take 1 [facility] HCl 2-25 tablet by ity of (REGLAN) 10 00:00: mouth [place] mg tablet 00 every 6 Medical (six) Branch hours as needed for Nausea and Vomiting (N/V). metoclopram 2020-0 Yes [id number] 10mg Take 1 [facility] HCl 2-25 tablet by ity of (REGLAN) 10 00:00: mouth [place] mg tablet 00 every 6 Medical (six) Branch hours as needed for Nausea and Vomiting (N/V). metoclopram 2020-0 Yes [id number] 10mg Take 1 [facility] HCl 2-25 tablet by ity of (REGLAN) 10 00:00: mouth [place] mg tablet 00 every 6 Medical (six) Branch hours as needed for Nausea and Vomiting (N/V). metoclopram 2020-0 Yes [id number] 10mg Take 1 [facility] HCl 2-25 tablet by ity of (REGLAN) 10 00:00: mouth [place] mg tablet 00 every 6 Medical (six) Branch hours as needed for Nausea and Vomiting (N/V). metoclopram 2020-0 Yes [id number] 10mg Take 1 [facility] HCl 2-25 tablet by ity of (REGLAN) 10 00:00: mouth [place] mg tablet 00 every 6 Medical (six) Branch hours as needed for Nausea and Vomiting (N/V). metoclopram 2020-0 Yes [id number] 10mg Take 1 [facility] HCl 2-25 tablet by ity of (REGLAN) 10 00:00: mouth [place] mg tablet 00 every 6 Medical (six) Branch hours as needed for Nausea and Vomiting (N/V). metoclopram 2020-0 Yes [id number] 10mg Take 1 [facility] tor[facility] HCl 2-25 tablet by ity of (REGLAN) 10 00:00: mouth [place] mg tablet 00 every 6 Medical (six) Branch hours as needed for Nausea and Vomiting (N/V). metoclopram 2020-0 Yes [id number] 10mg Take 1 [facility] tor[facility] HCl 2-25 tablet by ity of (REGLAN) 10 00:00: mouth [place] mg tablet 00 every 6 Medical (six) Branch hours as needed for Nausea and Vomiting (N/V). metoclopram 2020-0 Yes [id number] 10mg Take 1 [facility] tor[facility] HCl 2-25 tablet by ity of (REGLAN) 10 00:00: mouth [place] mg tablet 00 every 6 Medical (six) Branch hours as needed for Nausea and Vomiting (N/V). metoclopram 2020-0 Yes [id number] 10mg Take 1 [facility] tor[facility] HCl 2-25 tablet by ity of (REGLAN) 10 00:00: mouth [place] mg tablet 00 every 6 Medical (six) Branch hours as needed for Nausea and Vomiting (N/V). metoclopram 2020-0 Yes [id number] 10mg Take 1 [facility] tor[facility] HCl 2-25 tablet by ity of (REGLAN) 10 00:00: mouth [place] mg tablet 00 every 6 Medical (six) Branch hours as needed for Nausea and Vomiting (N/V). metoclopram 2020-0 Yes [id number] 10mg Take 1 [facility] tor[facility] HCl 2-25 tablet by ity of (REGLAN) 10 00:00: mouth [place] mg tablet 00 every 6 Medical (six) Branch hours as needed for Nausea and Vomiting (N/V). metoclopram 2020-0 Yes [id number] 10mg Take 1 [facility] tor[facility] HCl 2-25 tablet by ity of (REGLAN) 10 00:00: mouth [place] mg tablet 00 every 6 Medical (six) Branch hours as needed for Nausea and Vomiting (N/V). metoclopram 2020-0 Yes [id number] 10mg Take 1 [facility] tor[facility] HCl 2-25 tablet by ity of (REGLAN) 10 00:00: mouth [place] mg tablet 00 every 6 Medical (six) Branch hours as needed for Nausea and Vomiting (N/V). metoclopram 2020-0 Yes [id number] 10mg Take 1 [facility] tor[facility] HCl 2-25 tablet by ity of (REGLAN) 10 00:00: mouth [place] mg tablet 00 every 6 Medical (six) Branch hours as needed for Nausea and Vomiting (N/V). metoclopram 2020-0 Yes [id number] 10mg Take 1 [facility] tor[facility] HCl 2-25 tablet by ity of (REGLAN) 10 00:00: mouth [place] mg tablet 00 every 6 Medical (six) Branch hours as needed for Nausea and Vomiting (N/V). metoclopram 2020-0 Yes [id number] 10mg Take 1 [facility] tor[facility] HCl 2-25 tablet by ity of (REGLAN) 10 00:00: mouth [place] mg tablet 00 every 6 Medical (six) Branch hours as needed for Nausea and Vomiting (N/V). metoclopram 2020-0 Yes [id number] 10mg Take 1 [facility] tor[facility] HCl 2-25 tablet by ity of (REGLAN) 10 00:00: mouth [place] mg tablet 00 every 6 Medical (six) Branch hours as needed for Nausea and Vomiting (N/V). metoclopram 2020-0 Yes [id number] 10mg Take 1 [facility] tor[facility] HCl 2-25 tablet by ity of (REGLAN) 10 00:00: mouth [place] mg tablet 00 every 6 Medical (six) Branch hours as needed for Nausea and Vomiting (N/V). metoclopram 2020-0 Yes [id number] 10mg Take 1 [facility] tor[facility] HCl 2-25 tablet by ity of (REGLAN) 10 00:00: mouth [place] mg tablet 00 every 6 Medical (six) Branch hours as needed for Nausea and Vomiting (N/V). metoclopram 2020-0 Yes [id number] 10mg Take 1 [facility] HCl 2-25 tablet by ity of (REGLAN) 10 00:00: mouth [place] mg tablet 00 every 6 Medical (six) Branch hours as needed for Nausea and Vomiting (N/V). metoclopram 2020-0 Yes [id number] 10mg Take 1 [facility] HCl 2-25 tablet by ity of (REGLAN) 10 00:00: mouth [place] mg tablet 00 every 6 Medical (six) Branch hours as needed for Nausea and Vomiting (N/V). metoclopram 2020-0 Yes [id number] 10mg Take 1 [facility] HCl 2-25 tablet by ity of (REGLAN) 10 00:00: mouth [place] mg tablet 00 every 6 Medical (six) Branch hours as needed for Nausea and Vomiting (N/V). metoclopram 2020-0 Yes [id number] 10mg Take 1 [facility] HCl 2-25 tablet by ity of (REGLAN) 10 00:00: mouth [place] mg tablet 00 every 6 Medical (six) Branch hours as needed for Nausea and Vomiting (N/V). metoclopram 2020-0 Yes [id number] 10mg Take 1 [facility] tor[facility] HCl 2-25 tablet by ity of (REGLAN) 10 00:00: mouth [place] mg tablet 00 every 6 Medical (six) Branch hours as needed for Nausea and Vomiting (N/V). metoclopram 2020-0 Yes [id number] 10mg Take 1 [facility] tor[facility] HCl 2-25 tablet by ity of (REGLAN) 10 00:00: mouth [place] mg tablet 00 every 6 Medical (six) Branch hours as needed for Nausea and Vomiting (N/V). metoclopram 2020-0 Yes [id number] 10mg Take 1 [facility] tor[facility] HCl 2-25 tablet by ity of (REGLAN) 10 00:00: mouth [place] mg tablet 00 every 6 Medical (six) Branch hours as needed for Nausea and Vomiting (N/V). metoclopram 2020-0 Yes [id number] 10mg Take 1 [facility] tor[facility] HCl 2-25 tablet by ity of (REGLAN) 10 00:00: mouth [place] mg tablet 00 every 6 Medical (six) Branch hours as needed for Nausea and Vomiting (N/V). metoclopram 2020-0 Yes [id number] 10mg Take 1 [facility] tor[facility] HCl 2-25 tablet by ity of (REGLAN) 10 00:00: mouth [place] mg tablet 00 every 6 Medical (six) Branch hours as needed for Nausea and Vomiting (N/V). metoclopram 2020-0 Yes [id number] 10mg Take 1 [facility] tor[facility] HCl 2-25 tablet by ity of (REGLAN) 10 00:00: mouth [place] mg tablet 00 every 6 Medical (six) Branch hours as needed for Nausea and Vomiting (N/V). metoclopram 2020-0 Yes [id number] 10mg Take 1 [facility] tor[facility] HCl 2-25 tablet by ity of (REGLAN) 10 00:00: mouth [place] mg tablet 00 every 6 Medical (six) Branch hours as needed for Nausea and Vomiting (N/V). metoclopram 2020-0 Yes [id number] 10mg Take 1 [facility] tor[facility] HCl 2-25 tablet by ity of (REGLAN) 10 00:00: mouth [place] mg tablet 00 every 6 Medical (six) Branch hours as needed for Nausea and Vomiting (N/V). metroNIDAZO 2019-0 Yes [id number] 500mg Take 1 [facility] LE 500 mg 8-21 tablet by ity o f tablet 00:00: mouth [place] 00 every 12 Medical (twelve) Branch hours. metroNIDAZO 2019-0 Yes [id number] 500mg Take 1 [facility] LE 500 mg 8-21 tablet by ity o f tablet 00:00: mouth [place] 00 every 12 Medical (twelve) Branch hours. metroNIDAZO 2019-0 Yes [id number] 500mg Take 1 [facility] LE 500 mg 8-21 tablet by ity o f tablet 00:00: mouth [place] 00 every 12 Medical (twelve) Branch hours. metroNIDAZO 2019-0 Yes [id number] 500mg Take 1 [facility] LE 500 mg 8-21 tablet by ity o f tablet 00:00: mouth [place] 00 every 12 Medical (twelve) Branch hours. metroNIDAZO Yes [id number] 500mg Take 1 [facility] LE 500 mg 8-21 tablet by ity o f tablet 00:00: mouth [place] 00 every 12 Medical (twelve) Branch hours. metroNIDAZO Yes [id number] 500mg Take 1 [facility] LE 500 mg 8-21 tablet by ity o f tablet 00:00: mouth [place] 00 every 12 Medical (twelve) Branch hours. norgestimat 2019- No 1{tbl} Take 1 U nivers e-ethinyl 8-20 08-20 tablet by ity of estradiol 15:19: 00:00 mouth [place] (ESTARYLLA) 31 :00 daily. Medica l 0.25-35 Branch mg-mcg per tablet norgestimat 2019- No 1{tbl} Take 1 U nivers e-ethinyl 8-20 08-20 tablet by ity of estradiol 15:19: 00:00 mouth [place] (ESTARYLLA) 31 :00 daily. Medica l 0.25-35 Branch mg-mcg per tablet norgestimat Yes [id number] 1{tbl} Take 1 Univers e-ethinyl 8-20 tablet by ity o f estradiol 00:00: mouth [place] 0.25-35 00 daily. Medical mg-mcg per Branch tablet norgestimat Yes [id number] 1{tbl} Take 1 Univers e-ethinyl 8-20 tablet by ity o f estradiol 00:00: mouth [place] 0.25-35 00 daily. Medical mg-mcg per Branch tablet norgestimat Yes [id number] 1{tbl} Take 1 Univers e-ethinyl 8-20 tablet by ity o f estradiol 00:00: mouth [place] 0.25-35 00 daily. Medical mg-mcg per Branch tablet norgestimat Yes [id number] 1{tbl} Take 1 Univers e-ethinyl 8-20 tablet by ity o f estradiol 00:00: mouth [place] 0.25-35 00 daily. Medical mg-mcg per Branch tablet norgestimat Yes [id number] 1{tbl} Take 1 Univers e-ethinyl 8-20 tablet by ity o f estradiol 00:00: mouth [place] 0.25-35 00 daily. Medical mg-mcg per Branch tablet norgestimat Yes [id number] 1{tbl} Take 1 [facility] e-ethinyl 8-20 tablet by ity o f estradiol 00:00: mouth [place] 0.25-35 00 daily. Medical mg-mcg per Branch tablet norgestimat Yes [id number] 1{tbl} Take 1 Univers e-ethinyl 8-20 tablet by ity o f estradiol 00:00: mouth [place] 0.25-35 00 daily. Medical mg-mcg per Branch tablet norgestimat Yes [id number] 1{tbl} Take 1 Univers e-ethinyl 8-20 tablet by ity o f estradiol 00:00: mouth [place] 0.25-35 00 daily. Medical mg-mcg per Branch tablet cetirizine Yes TK 1 T PO Un matilda 10 mg 7-22 D. ity of tablet 00:00: [place] [facility] Yes TK 1 T PO U nivers 10 mg 7-22 QD ity of tablet 00:00: [place] [facility] cetirizine Yes TK 1 T PO Un matilda 10 mg 7-22 D. ity of tablet 00:00: [place] [facility] Yes TK 1 T PO U nivers 10 mg 7-22 QD ity of tablet 00:00: [place] [facility] cetirizine Yes TK 1 T PO Un matilda 10 mg 7-22 D. ity of tablet 00:00: [place] [facility] montelukast Yes TK 1 T PO U nivers 10 mg 7-22 QD ity of tablet 00:00: [place] [facility] cetirizine Yes TK 1 T PO Un mat[facility] 10 mg 7-22 D. ity of tablet 00:00: [place] [facility] TK 1 T PO U nivers 10 mg 7-22 QD ity of tablet 00:00: [place] [facility] cetirizine Yes TK 1 T PO Un matilda 10 mg 7-22 D. ity of tablet 00:00: [address] Yes TK 1 T PO U nivers 10 mg 7-22 QD ity [facility] tablet 00:[facility] [place] [facility] 10 mg 7-22 D. ity of tablet 00:00: [place] [facility] TK 1 T PO U nivers 10 mg 7-22 QD ity of tablet 00:00[facility] [place] [facility] 10 mg 7-22 D. ity of tablet 00:00: [place] [facility] Yes TK 1 T PO U nivers 10 mg 7-22 QD ity of tablet 00:00[facility] [place] [facility] 10 mg 7-22 D. ity of tablet 00:00: [place] [facility] Yes TK 1 T PO U nivers 10 mg 7-22 QD ity of tablet 00:00[facility] [place] [facility] PO [facility] 10 mg 7-22 D. ity of tablet 00:00: [place] [facility] Yes TK 1 T PO U nivers 10 mg 7-22 QD ity of tablet 00:00[facility] [place] [facility] 10 mg 7-22 D. ity of tablet 00:00: [place] [facility] Yes TK 1 T PO U nivers 10 mg 7-22 QD ity of tablet 00:00: [place] [facility] cetirizine Yes TK 1 T PO Un matilda 10 mg 7-22 D. ity of tablet 00:00: [place] [facility] Yes TK 1 T PO U nivers 10 mg 7-22 QD ity of tablet 00:00: [place] [facility] 10 mg 7-22 D. ity of tablet 00:00: [place] [facility] TK 1 T PO U nivers 10 mg 7-22 QD ity of tablet 00:00: [place] [facility] 10 mg 7-22 D. ity of tablet 00:00: [place] [facility] Yes TK 1 T PO U nivers 10 mg 7-22 QD ity of tablet 00:00: [place] [facility] 10 mg 7-22 D. ity of tablet 00:00: [place] [facility] Yes TK 1 T PO U nivers 10 mg 7-22 QD ity of tablet 00:00: [place] [facility] PO Un [facility] 10 mg 7-22 D. ity of tablet 00:00: [place] [facility] Yes TK 1 T PO U nivers 10 mg 7-22 QD ity of tablet 00:00: [place] [facility] T PO Un [facility] 10 mg 7-22 D. ity of tablet 00:00: [place] [facility] Yes TK 1 T PO U nivers 10 mg 7-22 QD ity of tablet 00:00: [place] [facility] T PO Un [facility] 10 mg 7-22 D. ity of tablet 00:00: [place] [facility] Yes TK 1 T PO U nivers 10 mg 7-22 QD ity of tablet 00:00: [place] [facility] 10 mg 7-22 D. ity of tablet 00:00: [place] [facility] Yes TK 1 T PO U nivers 10 mg 7-22 QD ity of tablet 00:00: [place] [facility] 10 mg 7-22 D. ity of tablet 00:00: [place] [facility] Yes TK 1 T PO U nivers 10 mg 7-22 QD ity of tablet 00:00: [place] [facility] cetirizine Yes TK 1 T PO Un matilda 10 mg 7-22 D. ity of tablet 00:00: [address] 1 T PO U nivers 10 mg 7-22 QD ity of tablet 00:00: [place] [facility] Un matilda 10 mg 7-22 D. ity [facility] tablet 00:[facility] [place] [facility] nivers 10 mg 7-22 QD ity of tablet 00:00: [place] [facility] Yes TK 1 T PO Un matilda 10 mg 7-22 D. ity of tablet 00:00: [facility] T PO U nivers 10 mg 7-22 QD ity of tablet 00:00: [place] [facility] Yes TK 1 T PO Un matilda 10 mg 7-22 D. ity of tablet 00:00: [address] Yes TK 1 T PO U nivers 10 mg 7-22 QD ity of tablet 00:00: [address] Yes TK 1 T PO Un matilda 10 mg 7-22 D. ity of tablet 00:00: [address] Yes TK 1 T PO U nivers 10 mg 7-22 QD ity of tablet 00:00: [place] [facility] Yes TK 1 T PO Un matilda 10 mg 7-22 D. ity of tablet 00:00: [address] 0 Yes TK 1 T PO U nivers 10 mg 7-22 QD ity of tablet 00:00: [place] [facility] T PO Un matilda 10 mg 7-22 D. ity of tablet 00:00: [address] Yes TK 1 T PO U nivers 10 mg 7-22 QD ity of tablet 00:00: [address] Yes TK 1 T PO Un matilda 10 mg 7-22 D. ity of tablet 00:00: [address] Yes TK 1 T PO U nivers 10 mg 7-22 QD ity of tablet 00:00: [place] 00 [facility] Yes TK 1 T PO Un matilda 10 mg 7-22 D. ity of tablet 00:00: [place] [facility] Yes TK 1 T PO U nivers 10 mg 7-22 QD ity of tablet 00:00: [place] [facility] Yes TK 1 T PO Un matilda 10 mg 7-22 D. ity of tablet 00:00: [place] [facility] Yes TK 1 T PO U nivers 10 mg 7-22 QD ity of tablet 00:00: [address] Yes TK 1 T PO Un matilda 10 mg 7-22 D. ity of tablet 00:00: [address] Yes TK 1 T PO U nivers 10 mg 7-22 QD ity of tablet 00:00: [address] Yes TK 1 T PO Un matilda 10 mg 7-22 D. ity of tablet 00:00: [address] Yes TK 1 T PO U nivers 10 mg 7-22 QD ity of tablet 00:00: [address] Yes TK 1 T PO Un matilda 10 mg 7-22 D. ity of tablet 00:00: [place] [facility] Yes TK 1 T PO U nivers 10 mg 7-22 QD ity of tablet 00:00: [address] Yes TK 1 T PO Un matilda 10 mg 7-22 D. ity of tablet 00:00: [place] [facility] Yes TK 1 T PO U nivers 10 mg 7-22 QD ity of tablet 00:00: [address] Yes TK 1 T PO Un matilda 10 mg 7-22 D. ity of tablet 00:00: [address] Yes TK 1 T PO U nivers 10 mg 7-22 QD ity of tablet 00:00: [address] Yes TK 1 T PO Un matilda 10 mg 7-22 D. ity of tablet 00:00: [place] [facility] montelukast Yes TK 1 T PO U nivers 10 mg 7-22 QD ity of tablet 00:00: [place] [facility] 10 mg 7-22 D. ity of tablet 00:00: [facility] [place] [facility] TK 1 T PO U nivers 10 mg 7-22 QD ity of tablet 00:00: [place] [facility] T PO Un matilda 10 mg 7-22 D. ity of tablet 00:00: [facility] TK 1 T PO U nivers 10 mg 7-22 QD ity of tablet 00:00: [place] [facility] T PO Un matilda 10 mg 7-22 D. ity of tablet 00:00: [facility] [place] [facility] TK 1 T PO U nivers 10 mg 7-22 QD ity of tablet 00:00: [place] [facility] T PO Un matilda 10 mg 7-22 D. ity of tablet 00:00: [address] Yes TK 1 T PO U nivers 10 mg 7-22 QD ity of tablet 00:00: [place] [facility] T PO Un matilda 10 mg 7-22 D. ity of tablet 00:00: [address] Yes TK 1 T PO U nivers 10 mg 7-22 QD ity of tablet 00:00: [place] [facility] 10 mg 7-22 D. ity of tablet 00:00: [address] Yes TK 1 T PO U nivers 10 mg 7-22 QD ity of tablet 00:00: [place] [facility] Un matilda 10 mg 7-22 D. ity of tablet 00:00: [address] Yes TK 1 T PO U nivers 10 mg 7-22 QD ity of tablet 00:00: [place] [facility] Yes TK 1 T PO Un matilda 10 mg 7-22 D. ity of tablet 00:00: [place] [facility] Yes TK 1 T PO U nivers 10 mg 7-22 QD ity of tablet 00:00: [place] [facility] Yes TK 1 T PO Un matilda 10 mg 7-22 D. ity of tablet 00:00: [place] [facility] Yes TK 1 T PO U nivers 10 mg 7-22 QD ity of tablet 00:00: [place] [facility] Yes TK 1 T PO Un matilda 10 mg 7-22 D. ity of tablet 00:00: [address] Yes TK 1 T PO U nivers 10 mg 7-22 QD ity of tablet 00:00: [address] Yes TK 1 T PO Un matilda 10 mg 7-22 D. ity of tablet 00:00: [place] [facility] Yes TK 1 T PO U nivers 10 mg 7-22 QD ity of tablet 00:00: [address] Yes TK 1 T PO Un matilda 10 mg 7-22 D. ity of tablet 00:00: [place] [facility] Yes TK 1 T PO U nivers 10 mg 7-22 QD ity of tablet 00:00: [place] [facility] Yes TK 1 T PO Un matilda 10 mg 7-22 D. ity of tablet 00:00: [place] [facility] Yes TK 1 T PO U nivers 10 mg 7-22 QD ity of tablet 00:00: [address] Yes TK 1 T PO Un matilda 10 mg 7-22 D. ity of tablet 00:00: [address] Yes TK 1 T PO U nivers 10 mg 7-22 QD ity of tablet 00:00: [address] Yes TK 1 T PO Un matilda 10 mg 7-22 D. ity of tablet 00:00: [place] [facility] Yes TK 1 T PO U nivers 10 mg 7-22 QD ity of tablet 00:00: [place] [facility] Yes TK 1 T PO Un matilda 10 mg 7-22 D. ity of tablet 00:00: [address] Yes TK 1 T PO U nivers 10 mg 7-22 QD ity of tablet 00:00: [address] Yes TK 1 T PO Un matilda 10 mg 7-22 D. ity of tablet 00:00: [address] Yes TK 1 T PO U nivers 10 mg 7-22 QD ity of tablet 00:00: [address] Yes TK 1 T PO Un matilda 10 mg 7-22 D. ity of tablet 00:00: [address] Yes TK 1 T PO U nivers 10 mg 7-22 QD ity of tablet 00:00: [address] Yes TK 1 T PO Un matilda 10 mg 7-22 D. ity of tablet 00:00: [address] Yes TK 1 T PO U nivers 10 mg 7-22 QD ity of tablet 00:00: [address] Yes TK 1 T PO Un matilda 10 mg 7-22 D. ity of tablet 00:00: [address] Yes TK 1 T PO U nivers 10 mg 7-22 QD ity of tablet 00:00: [address] Yes TK 1 T PO Un matilda 10 mg 7-22 D. ity of tablet 00:00: [address] Yes TK 1 T PO U nivers 10 mg 7-22 QD ity of tablet 00:00: [address] Yes TK 1 T PO Un matilda 10 mg 7-22 D. ity of tablet 00:00: [address] Yes TK 1 T PO U nivers 10 mg 7-22 QD ity of tablet 00:00: [place] [facility] cetirizine Yes TK 1 T PO Un matilda 10 mg 7-22 D. ity of tablet 00:00: [place] [facility] Yes TK 1 T PO U nivers 10 mg 7-22 QD ity of tablet 00:00: [place] [facility] Yes TK 1 T PO Un matilda 10 mg 7-22 D. ity of tablet 00:00: [place] [facility] Yes TK 1 T PO U nivers 10 mg 7-22 QD ity of tablet 00:00: [place] [facility] Yes TK 1 T PO Un matilda 10 mg 7-22 D. ity of tablet 00:00: [place] [facility] Yes TK 1 T PO U nivers 10 mg 7-22 QD ity of tablet 00:00: [place] [facility] Yes TK 1 T PO Un matilda 10 mg 7-22 D. ity of tablet 00:00: [place] [facility] Yes TK 1 T PO U nivers 10 mg 7-22 QD ity of tablet 00:00: [place] [facility] norgestimat 2017-06 Yes [id number] 1{tbl} Take 1 Univers e-ethinyl 1-21 tablet by ity o f estradiol 00:00: mouth [place] 0.25-35 00 daily. Medical mg-mcg per Branch tablet norgestimat 2017-06 2019- No [id number] 1{tbl} Take 1 Univers e-ethinyl 1-21 08-20 tablet by ity of estradiol 00:00: 00:00 mouth [place] 0.25-35 00 :00 daily. Medical mg-mcg per Branch tablet norgestimat 2017-06 2019- No [id number] 1{tbl} Take 1 Univers e-ethinyl 1-21 08-20 tablet by ity of estradiol 00:00: 00:00 mouth [place] 0.25-35 00 :00 daily. Medical mg-mcg per Branch tablet diazePAM 2017-0 Yes [id number] 5mg Take 1 Univers (VALIUM) 5 9-05 4104 tablet by ity of mg tablet 00:00: mouth [place] 00 SEE-INSTRU Medical CTIONS. Branch Hydrocodone Yes [id number] 1{tbl} Take 1 Univers -Acetaminop 9-05 4104 tablet by ity of hen 00:00: mouth [place] (VICODIN) 00 SEE-INSTRU Medi magnus 5-300 mg CTIONS. Branch tablet diazePAM 2016- Yes [id number] 5mg Take 1 Univers (VALIUM) 5 9-05 4104 tablet by ity of mg tablet 00:00: mouth [place] 00 SEE-INSTRU Medical CTIONS. Branch Hydrocodone Yes [id number] 1{tbl} Take 1 Univers -Acetaminop 9-05 4104 tablet by ity of hen 00:00: mouth [place] (VICODIN) 00 SEE-INSTRU Medi magnus 5-300 mg CTIONS. Branch tablet diazePAM Yes [id number] 5mg Take 1 Univers (VALIUM) 5 9-05 4104 tablet by ity of mg tablet 00:00: mouth [place] 00 SEE-INSTRU Medical CTIONS. Branch Hydrocodone Yes [id number] 1{tbl} Take 1 Univers -Acetaminop 9-05 4104 tablet by ity of hen 00:00: mouth [place] (VICODIN) 00 SEE-INSTRU Medi magnus 5-300 mg CTIONS. Branch tablet diazePAM Yes [id number] 5mg Take 1 Univers (VALIUM) 5 9-05 4104 tablet by ity of mg tablet 00:00: mouth [place] 00 SEE-INSTRU Medical CTIONS. Branch Hydrocodone Yes [id number] 1{tbl} Take 1 Univers -Acetaminop 9-05 4104 tablet by ity of hen 00:00: mouth [place] (VICODIN) 00 SEE-INSTRU Medi magnus 5-300 mg CTIONS. Branch tablet diazePAM 2016- Yes [id number] 5mg Take 1 Univers (VALIUM) 5 9-05 4104 tablet by ity of mg tablet 00:00: mouth [place] 00 SEE-INSTRU Medical CTIONS. Branch Hydrocodone Yes [id number] 1{tbl} Take 1 Univers -Acetaminop 9-05 4104 tablet by ity of hen 00:00: mouth [place] (VICODIN) 00 SEE-INSTRU Medi magnus 5-300 mg CTIONS. Branch tablet diazePAM 2017-0 Yes [id number] 5mg Take 1 Univers (VALIUM) 5 9-05 4104 tablet by ity of mg tablet 00:00: mouth [place] 00 SEE-INSTRU Medical CTIONS. Branch Hydrocodone Yes [id number] 1{tbl} Take 1 Univers -Acetaminop 9-05 4104 tablet by ity of hen 00:00: mouth [place] (VICODIN) 00 SEE-INSTRU Medi magnus 5-300 mg CTIONS. Branch tablet diazePAM Yes [id number] 5mg Take 1 Univers (VALIUM) 5 9-05 4104 tablet by ity of mg tablet 00:00: mouth [place] 00 SEE-INSTRU Medical CTIONS. Branch Hydrocodone Yes [id number] 1{tbl} Take 1 Univers -Acetaminop 9-05 4104 tablet by ity of hen 00:00: mouth [place] (VICODIN) 00 SEE-INSTRU Medi magnus 5-300 mg CTIONS. Branch tablet diazePAM Yes [id number] 5mg Take 1 Univers (VALIUM) 5 9-05 4104 tablet by ity of mg tablet 00:00: mouth [place] 00 SEE-INSTRU Medical CTIONS. Branch Hydrocodone Yes [id number] 1{tbl} Take 1 Univers -Acetaminop 9-05 4104 tablet by ity of hen 00:00: mouth [place] (VICODIN) 00 SEE-INSTRU Medi magnus 5-300 mg CTIONS. Branch tablet diazePAM Yes [id number] 5mg Take 1 Univers (VALIUM) 5 9-05 4104 tablet by ity of mg tablet 00:00: mouth [place] 00 SEE-INSTRU Medical CTIONS. Branch Hydrocodone Yes [id number] 1{tbl} Take 1 Univers -Acetaminop 9-05 4104 tablet by ity of hen 00:00: mouth [place] (VICODIN) 00 SEE-INSTRU Medi magnus 5-300 mg CTIONS. Branch tablet diazePAM Yes [id number] 5mg Take 1 Univers (VALIUM) 5 9-05 4104 tablet by ity of mg tablet 00:00: mouth [place] 00 SEE-INSTRU Medical CTIONS. Branch Hydrocodone Yes [id number] 1{tbl} Take 1 Univers -Acetaminop 9-05 4104 tablet by ity of hen 00:00: mouth [place] (VICODIN) 00 SEE-INSTRU Medi magnus 5-300 mg CTIONS. Branch tablet Immunizations Ordered Immunization Filled Immunization Date Status Commen ts Source Name Name Influenza Virus 2020-03-12 Completed Universit y of Vaccine Quad .5 mL IM 00:00:00 [facility] 6+ MO [facility] Influenza Virus 2020-03-12 Completed Universit y of Vaccine Quad .5 mL IM 00:00:00 [facility] 6[facility] Influenza Virus 2020-03-12 Completed Universit y of Vaccine Quad .5 mL IM 00:00:00 [facility] 6[facility] Influenza Virus 2020-03-12 Completed Universit y of Vaccine Quad .5 mL IM 00:00:00 [facility] 6[facility] Branch Influenza Virus 2020-03-12 Completed Universit y of Vaccine Quad .5 mL IM 00:00:00 [facility] 6[facility] Branch Influenza Virus 2020-03-12 Completed Universit y of Vaccine Quad .5 mL IM 00:00:00 [facility] 6[facility] Branch Influenza Virus 2020-03-12 Completed Universit y of Vaccine Quad .5 mL IM 00:00:00 [facility] 6[facility] Influenza Virus 2020-03-12 Completed Universit y of Vaccine Quad .5 mL IM 00:00:00 [facility] 6[facility] Influenza Virus 2020-03-12 Completed Universit y of Vaccine Quad .5 mL IM 00:00:00 [facility] 6[facility] Influenza Virus 2020-03-12 Completed Universit y of Vaccine Quad .5 mL IM 00:00:00 [facility] 6[facility] Branch Influenza Virus 2020-03-12 Completed Universit y of Vaccine Quad .5 mL IM 00:00:00 [facility] 6[facility] Influenza Virus 2020-03-12 Completed Universit y of Vaccine Quad .5 mL IM 00:00:00 [facility] 6[facility] Influenza Virus 2020-03-12 Completed Universit y of Vaccine Quad .5 mL IM 00:00:00 [facility] 6[facility] Influenza Virus 2020-03-12 Completed Universit y of Vaccine Quad .5 mL IM 00:00:00 [facility] 6[facility] MO Branch Influenza Virus 2020-03-12 Completed Universit y of Vaccine Quad .5 mL IM 00:00:00 [facility] 6[facility] MO Branch Influenza Virus 2020-03-12 Completed Universit y of Vaccine Quad .5 mL IM 00:00:00 [facility] 6[facility] MO Branch Influenza Virus 2020-03-12 Completed Universit y of Vaccine Quad .5 mL IM 00:00:00 [facility] 6[facility] MO Branch Influenza Virus 2020-03-12 Completed Universit y of Vaccine Quad .5 mL IM 00:00:00 [facility] 6[facility] MO Branch Influenza Virus 2020-03-12 Completed Universit y of Vaccine Quad .5 mL IM 00:00:00 [facility] 6+ MO Branch Influenza Virus 2020-03-12 Completed Universit y of Vaccine Quad .5 mL IM 00:00:00 [facility] 6+ MO Branch TDAP 2020-01-05 Completed University of 00:00:00 [place] [facility] TDAP 2020-01-05 Completed University of 00:00:00 [place] [facility] TDAP 2020-01-05 Completed University of 00:00:00 [facility] TDAP 2020-01-05 Completed University of 00:00:00 [place] [facility] TDAP 2020-01-05 Completed University of 00:00:00 [place] [facility] TDAP 2020-01-05 Completed University of 00:00:00 [place] [facility] TDAP 2020-01-05 Completed University of 00:00:00 [place] [facility] TDAP 2020-01-05 Completed University of 00:00:00 [place] [facility] TDAP 2020-01-05 Completed University of 00:00:00 [place] [facility] TDAP 2020-01-05 Completed University of 00:00:00 [place] [facility] TDAP 2020-01-05 Completed University of 00:00:00 [place] [facility] TDAP 2020-01-05 Completed University of 00:00:00 [place] [facility] TDAP 2020-01-05 Completed University of 00:00:00 [place] [facility] TDAP 2020-01-05 Completed University of 00:00:00 [place] [facility] TDAP 2020-01-05 Completed University of 00:00:00 [place] [facility] TDAP 2020-01-05 Completed University of 00:00:00 [place] [facility] TDAP 2020-01-05 Completed University of 00:00:00 [place] [facility] TDAP 2020-01-05 Completed University of 00:00:00 [place] [facility] TDAP 2020-01-05 Completed University of 00:00:00 [place] [facility] TDAP 2020-01-05 Completed University of 00:00:00 [facility] TDAP 2020-01-05 Completed University of 00:00:00 [facility] TDAP 2020-01-05 Completed University of 00:00:00 [facility] TDAP 2020-01-05 Completed University of 00:00:00 [facility] TDAP 2020-01-05 Completed University of 00:00:00 [facility] TDAP 2020-01-05 Completed University of 00:00:00 [facility] TDAP 2020-01-05 Completed University of 00:00:00 [facility] TDAP 2020-01-05 Completed University of 00:00:00 [facility] TDAP 2020-01-05 Completed University of 00:00:00 [facility] TDAP 2020-01-05 Completed University of 00:00:00 [facility] TDAP 2020-01-05 Completed University of 00:00:00 [facility] TDAP 2020-01-05 Completed University of 00:00:00 [facility] TDAP 2020-01-05 Completed University of 00:00:00 [facility] TDAP 2020-01-05 Completed University of 00:00:00 [facility] TDAP 2020-01-05 Completed University of 00:00:00 [facility] Influenza Virus 2016-06-29 Completed Universit y of Vaccine (3+ yrs) 00:00:00 [facility] Influenza Virus 2016-06-29 Completed Universit y of Vaccine (3+ yrs) 00:00:00 [facility] Influenza Virus 2016-06-29 Completed Universit y of Vaccine (3+ yrs) 00:00:00 [facility] Influenza Virus 2016-06-29 Completed Universit y of Vaccine (3+ yrs) 00:00:00 [facility] Influenza Virus 2016-06-29 Completed Universit y of Vaccine (3+ yrs) 00:00:00 [facility] Influenza Virus 2016-06-29 Completed Universit y of Vaccine (3+ yrs) 00:00:00 [facility] Influenza Virus 2016-06-29 Completed Universit y of Vaccine (3+ yrs) 00:00:00 [facility] Influenza Virus 2016-06-29 Completed Universit y of Vaccine (3+ yrs) 00:00:00 [facility] Influenza Virus 2016-06-29 Completed Universit y of Vaccine (3+ yrs) 00:00:00 [facility] Influenza Virus 2016-06-29 Completed Universit y of Vaccine (3+ yrs) 00:00:00 [facility] Influenza Virus 2016-06-29 Completed Universit y of Vaccine (3+ yrs) 00:00:00 [facility] Influenza Virus 2016-06-29 Completed Universit y of Vaccine (3+ yrs) 00:00:00 [facility] Influenza Virus 2016-06-29 Completed Universit y of Vaccine (3+ yrs) 00:00:00 [facility] Influenza Virus 2016-06-29 Completed Universit y of Vaccine (3+ yrs) 00:00:00 [facility] Influenza Virus 2016-06-29 Completed Universit y of Vaccine (3+ yrs) 00:00:00 [facility] Influenza Virus 2016-06-29 Completed Universit y of Vaccine (3+ yrs) 00:00:00 [facility] Yellow Fever, Live 2015-11-01 Completed Univer sity of 00:00:00 [facility] Yellow Fever, Live 2015-11-01 Completed Univer sity of 00:00:00 [facility] Yellow Fever, Live 2015-11-01 Completed Univer sity of 00:00:00 [facility] Yellow Fever, Live 2015-11-01 Completed Univer sity of 00:00:00 [facility] Yellow Fever, Live 2015-11-01 Completed Univer sity of 00:00:00 [facility] Yellow Fever, Live 2015-11-01 Completed Univer sity of 00:00:00 [facility] Yellow Fever, Live 2015-11-01 Completed Univer sity of 00:00:00 [facility] Yellow Fever, Live 2015-11-01 Completed Univer sity of 00:00:00 [facility] Yellow Fever, Live 2015-11-01 Completed Univer sity of 00:00:00 [facility] Yellow Fever, Live 2015-11-01 Completed Univer sity of 00:00:00 [facility] Yellow Fever, Live 2015-11-01 Completed Univer sity of 00:00:00 [facility] Yellow Fever, Live 2015-11-01 Completed Univer sity of 00:00:00 [facility] Yellow Fever, Live 2015-11-01 Completed Univer sity of 00:00:00 [facility] Yellow Fever, Live 2015-11-01 Completed Univer sity of 00:00:00 [facility] Yellow Fever, Live 2015-11-01 Completed Univer sity of 00:00:00 [facility] Yellow Fever, Live 2015-11-01 Completed Univer sity of 00:00:00 [facility] Branch PPD (TB) 2015-04-24 Completed University of 00:00:00 [facility] Branch Typhoid Vaccine, Vi 2015-04-24 Completed Unive rsity of Capsular 00:00:00 [place] [facility] Polysaccharide, IM Branch PPD (TB) 2015-04-24 Completed University of 00:00:00 [place] [facility] Typhoid Vaccine, Vi 2015-04-24 Completed Unive rsity of Capsular 00:00:00 [place] [facility] Polysaccharide, IM Branch PPD (TB) 2015-04-24 Completed University of 00:00:00 [place] [facility] Typhoid Vaccine, Vi 2015-04-24 Completed Unive rsity of Capsular 00:00:00 [place] [facility] Polysaccharide, IM Branch PPD (TB) 2015-04-24 Completed University of 00:00:00 [place] [facility] Typhoid Vaccine, Vi 2015-04-24 Completed Unive rsity of Capsular 00:00:00 [place] [facility] Polysaccharide, IM Branch PPD (TB) 2015-04-24 Completed University of 00:00:00 [place] [facility] Typhoid Vaccine, Vi 2015-04-24 Completed Unive rsity of Capsular 00:00:00 [place] [facility] Polysaccharide, IM Branch PPD (TB) 2015-04-24 Completed University of 00:00:00 [place] [facility] Typhoid Vaccine, Vi 2015-04-24 Completed Unive rsity of Capsular 00:00:00 [place] [facility] Polysaccharide, IM Branch PPD (TB) 2015-04-24 Completed University of 00:00:00 [place] [facility] Typhoid Vaccine, Vi 2015-04-24 Completed Unive rsity of Capsular 00:00:00 [place] [facility] Polysaccharide, IM Branch PPD (TB) 2015-04-24 Completed University of 00:00:00 [place] [facility] Typhoid Vaccine, Vi 2015-04-24 Completed Unive rsity of Capsular 00:00:00 [place] [facility] Polysaccharide, IM Branch PPD (TB) 2015-04-24 Completed University of 00:00:00 [place] [facility] Typhoid Vaccine, Vi 2015-04-24 Completed Unive rsity of Capsular 00:00:00 [place] [facility] Polysaccharide, IM Branch PPD (TB) 2015-04-24 Completed University of 00:00:00 [place] [facility] Typhoid Vaccine, Vi 2015-04-24 Completed Unive rsity of Capsular 00:00:00 [place] [facility] Polysaccharide, IM Branch PPD (TB) 2015-04-24 Completed University of 00:00:00 [place] [facility] Typhoid Vaccine, Vi 2015-04-24 Completed Unive rsity of Capsular 00:00:00 [place] [facility] Polysaccharide, IM Branch PPD (TB) 2015-04-24 Completed University of 00:00:00 [place] [facility] Typhoid Vaccine, Vi 2015-04-24 Completed Unive rsity of Capsular 00:00:00 [place] [facility] Polysaccharide, IM Branch PPD (TB) 2015-04-24 Completed University of 00:00:00 [place] [facility] Typhoid Vaccine, Vi 2015-04-24 Completed Unive rsity of Capsular 00:00:00 [place] [facility] Polysaccharide, IM Branch PPD (TB) 2015-04-24 Completed University of 00:00:00 [place] [facility] Typhoid Vaccine, Vi 2015-04-24 Completed Unive rsity of Capsular 00:00:00 [place] [facility] Polysaccharide, IM Branch PPD (TB) 2015-04-24 Completed University of 00:00:00 [place] [facility] Typhoid Vaccine, Vi 2015-04-24 Completed Unive rsity of Capsular 00:00:00 [place] [facility] Polysaccharide, IM Branch PPD (TB) 2015-04-24 Completed University of 00:00:00 [place] [facility] Typhoid Vaccine, Vi 2015-04-24 Completed Unive rsity of Capsular 00:00:00 [place] [facility] Polysaccharide, IM Branch Influenza Virus 2015-04-08 Completed Universit y of Vaccine Quad IM 00:00:00 [place] [facility] Multi-dose 6+ MO Branch Influenza Virus 2015-04-08 Completed Universit y of Vaccine Quad IM 3+ 00:00:00 [facility] YRS Branch Influenza Virus 2015-04-08 Completed Universit y of Vaccine Quad IM 00:00:00 [place] [facility] ical Multi-dose 6+ MO Branch Influenza Virus 2015-04-08 Completed Universit y of Vaccine Quad IM 3+ 00:00:00 [facility] YRS Branch Influenza Virus 2015-04-08 Completed Universit y of Vaccine Quad IM 00:00:00 [place] [facility] Multi-dose 6+ MO Branch Influenza Virus 2015-04-08 Completed Universit y of Vaccine Quad IM 3+ 00:00:00 [facility] Branch Influenza Virus 2015-04-08 Completed Universit y of Vaccine Quad IM 00:00:00 [place] [facility] ical Multi-dose 6+ MO Branch Influenza Virus 2015-04-08 Completed Universit y of Vaccine Quad IM 3+ 00:00:00 [facility] Branch Influenza Virus 2015-04-08 Completed Universit y of Vaccine Quad IM 00:00:00 [place] [facility] ical Multi-dose 6+ MO Branch Influenza Virus 2015-04-08 Completed Universit y of Vaccine Quad IM 3+ 00:00:00 [facility] Branch Influenza Virus 2015-04-08 Completed Universit y of Vaccine Quad IM 00:00:00 [place] [facility] Multi-dose 6+ MO Branch Influenza Virus 2015-04-08 Completed Universit y of Vaccine Quad IM 3+ 00:00:00 [facility] Branch Influenza Virus 2015-04-08 Completed Universit y of Vaccine Quad IM 00:00:00 [place] [facility] Multi-dose 6+ MO Branch Influenza Virus 2015-04-08 Completed Universit y of Vaccine Quad IM 3+ 00:00:00 [facility] [facility] Influenza Virus 2015-04-08 Completed [facility]it y of Vaccine Quad IM 00:00:00 [place] [facility] Multi-dose 6+ [facility] Influenza Virus 2015-04-08 Completed [facility]it y of Vaccine [facility] IM 3+ 00:00:00 [facility] Influenza Virus 2015-04-08 Completed [facility]it [facility] of Vaccine [facility] IM 00:00:00 [place] [facility] Multi-dose 6+ [facility] Influenza Virus 2015-04-08 Completed [facility]it y of Vaccine [facility] IM 3+ 00:00:00 [facility] Influenza Virus 2015-04-08 Completed [facility]it [facility] of Vaccine [facility] IM 00:00:00 [place] [facility] Multi-dose 6+ MO Branch Influenza Virus 2015-04-08 Completed [facility]it y of Vaccine Quad IM 3+ 00:00:00 [facility] Influenza Virus 2015-04-08 Completed [facility]it [facility] of Vaccine [facility] IM 00:00:00 [place] [facility] Multi-dose 6+ [facility] Influenza Virus 2015-04-08 Completed [facility]it y of Vaccine [facility] IM 3+ 00:00:00 [facility] Influenza Virus 2015-04-08 Completed [facility]it [facility] of Vaccine [facility] IM 00:00:00 [place] [facility] Multi-dose 6+ MO Branch Influenza Virus 2015-04-08 Completed [facility]it y of Vaccine Quad IM 3+ 00:00:00 [facility] Influenza Virus 2015-04-08 Completed [facility]it y of Vaccine Quad IM 00:00:00 [place] [facility] Multi-dose 6+ [facility] Influenza Virus 2015-04-08 Completed [facility]it y of Vaccine [facility] IM 3+ 00:00:00 [facility] Influenza Virus 2015-04-08 Completed [facility]it y of Vaccine Quad IM 00:00:00 [place] [facility] Multi-dose 6+ MO [facility] Influenza Virus 2015-04-08 Completed [facility]it y of Vaccine [facility] IM 3+ 00:00:00 [facility] Influenza Virus 2015-04-08 Completed [facility]it y of Vaccine [facility] IM 00:00:00 [place] [facility] Multi-dose 6+ [facility] Influenza Virus 2015-04-08 Completed [facility]it y of Vaccine [facility] IM 3+ 00:00:00 [facility] Influenza Virus 2015-04-08 Completed [facility]it [facility] of Vaccine Quad IM 00:00:00 [place] [facility] Multi-dose 6+ [facility] Influenza Virus 2015-04-08 Completed [facility]it y of Vaccine Quad IM 3+ 00:00:00 [facility] Influenza Virus 2014-04-15 Completed Universit y of Vaccine (3+ yrs) 00:00:00 [facility] Influenza Virus 2014-04-15 Completed Universit y of Vaccine (3+ yrs) 00:00:00 [facility] Influenza Virus 2014-04-15 Completed Universit y of Vaccine (3+ yrs) 00:00:00 [facility] Influenza Virus 2014-04-15 Completed [facility]it y of Vaccine (3+ yrs) 00:00:00 [facility] Influenza Virus 2014-04-15 Completed [facility]it y of Vaccine (3+ yrs) 00:00:00 [facility] Influenza Virus 2014-04-15 Completed [facility]it y of Vaccine (3+ yrs) 00:00:00 [facility] Influenza Virus 2014-04-15 Completed [facility]it y of Vaccine (3+ yrs) 00:00:00 [facility] Influenza Virus 2014-04-15 Completed [facility]it y of Vaccine (3+ yrs) 00:00:00 [facility] Influenza Virus 2014-04-15 Completed [facility]it y of Vaccine (3+ yrs) 00:00:00 [place] [facility] Influenza Virus 2014-04-15 Completed [facility]it y of Vaccine (3+ yrs) 00:00:00 [facility] Influenza Virus 2014-04-15 Completed Universit y of Vaccine (3+ yrs) 00:00:[address] [facility] Branch Influenza Virus 2014-04-15 Completed Universit y of Vaccine (3+ yrs) 00:00:00 [facility] Influenza Virus 2014-04-15 Completed Universit y of Vaccine (3+ yrs) 00:00:00 [facility] Influenza Virus 2014-04-15 Completed [facility]it y of Vaccine (3+ yrs) 00:00:00 [facility] Influenza Virus 2014-04-15 Completed [facility]it y of Vaccine (3+ yrs) 00:00:00 [facility] Influenza Virus 2014-04-15 Completed Universit y of Vaccine (3+ yrs) 00:00:00 [facility] Twinrix (hep a/hep b) 2012-10-14 Completed Uni versity of 00:00:00 [facility] Twinrix (hep a/hep b) 2012-10-14 Completed Uni versity of 00:00:00 [facility] Twinrix (hep a/hep b) 2012-10-14 Completed Uni versity of 00:00:00 [facility] Twinrix (hep a/hep b) 2012-10-14 Completed Uni versity of 00:00:00 [facility] Twinrix (hep a/hep b) 2012-10-14 Completed Uni versity of 00:00:00 [facility] Twinrix (hep a/hep b) 2012-10-14 Completed Uni versity of 00:00:00 [facility] Twinrix (hep a/hep b) 2012-10-14 Completed Uni versity of 00:00:00 [facility] Twinrix (hep a/hep b) 2012-10-14 Completed Uni versity of 00:00:00 [facility] Twinrix (hep a/hep b) 2012-10-14 Completed Uni versity of 00:00:00 [facility] Twinrix (hep a/hep b) 2012-10-14 Completed Uni versity of 00:00:00 [facility] Twinrix (hep a/hep b) 2012-10-14 Completed Uni versity of 00:00:00 [facility] Twinrix (hep a/hep b) 2012-10-14 Completed Uni versity of 00:00:00 [facility] Twinrix (hep a/hep b) 2012-10-14 Completed Uni versity of 00:00:00 [facility] Twinrix (hep a/hep b) 2012-10-14 Completed Uni versity of 00:00:00 [facility] Twinrix (hep a/hep b) 2012-10-14 Completed Uni versity of 00:00:00 [facility] Twinrix (hep a/hep b) 2012-10-14 Completed Uni versity of 00:00:00 [facility] Influenza Virus 2012-03-10 Completed Universit y of Vaccine Nasal 00:00:00 [facility] Influenza Virus 2012-03-10 Completed [facility]it y of Vaccine Nasal 00:00:00 [facility] Influenza Virus 2012-03-10 Completed [facility]it y of Vaccine Nasal 00:00:00 [facility] Influenza Virus 2012-03-10 Completed [facility]it y of Vaccine Nasal 00:00:00 [facility] Influenza Virus 2012-03-10 Completed [facility]it y of Vaccine Nasal 00:00:00 [facility] Influenza Virus 2012-03-10 Completed [facility]it y of Vaccine Nasal 00:00:00 [facility] Influenza Virus 2012-03-10 Completed [facility]it y of Vaccine Nasal 00:00:00 [facility] Influenza Virus 2012-03-10 Completed [facility]it y of Vaccine Nasal 00:00:00 [facility] Influenza Virus 2012-03-10 Completed [facility]it y of Vaccine Nasal 00:00:00 [facility] Influenza Virus 2012-03-10 Completed [facility]it y of Vaccine Nasal 00:00:00 [facility] Influenza Virus 2012-03-10 Completed [facility]it y of Vaccine Nasal 00:00:00 [facility] Influenza Virus 2012-03-10 Completed [facility]it y of Vaccine Nasal 00:00:00 [facility] Influenza Virus 2012-03-10 Completed [facility]it y of Vaccine Nasal 00:00:00 [facility] Influenza Virus 2012-03-10 Completed [facility]it y of Vaccine Nasal 00:00:00 [facility] Influenza Virus 2012-03-10 Completed [facility]it y of Vaccine Nasal 00:00:00 [facility] Influenza Virus 2012-03-10 Completed Universit y of Vaccine Nasal 00:00:00 [facility] IPV 2012-02-11 Completed University of 00:00:00 [place] [facility] HPV 2012-02-11 Completed [facility] of 00:00:00 [facility] IPV 2012-02-11 Completed University of 00:00:00 [facility] HPV 2012-02-11 Completed University of 00:00:00 [facility] IPV 2012-02-11 Completed University of 00:00:00 [facility] HPV 2012-02-11 Completed University of 00:00:00 [facility] IPV 2012-02-11 Completed University of 00:00:00 [facility] HPV 2012-02-11 Completed [facility] of 00:00:00 [facility] IPV 2012-02-11 Completed [facility] of 00:00:00 [facility] HPV 2012-02-11 Completed [facility] of 00:00:00 [facility] IPV 2012-02-11 Completed [facility] of 00:00:00 [facility] HPV 2012-02-11 Completed [facility] of 00:00:00 [facility] IPV 2012-02-11 Completed [facility] of 00:00:00 [facility] HPV 2012-02-11 Completed [facility] of 00:00:00 [facility] IPV 2012-02-11 Completed [facility] of 00:00:00 [facility] HPV 2012-02-11 Completed [facility] of 00:00:00 [facility] IPV 2012-02-11 Completed [facility] of 00:00:00 [facility] HPV 2012-02-11 Completed [facility] of 00:00:00 [facility] IPV 2012-02-11 Completed [facility] of 00:00:00 [facility] HPV 2012-02-11 Completed [facility] of 00:00:00 [facility] IPV 2012-02-11 Completed [facility] of 00:00:00 [facility] HPV 2012-02-11 Completed [facility] of 00:00:00 [facility] IPV 2012-02-11 Completed [facility] of 00:00:00 [facility] HPV 2012-02-11 Completed [facility] of 00:00:00 [facility] IPV 2012-02-11 Completed [facility] of 00:00:00 [facility] HPV 2012-02-11 Completed [facility] of 00:00:00 [facility] IPV 2012-02-11 Completed [facility] of 00:00:00 [facility] HPV 2012-02-11 Completed [facility] of 00:00:00 [place] [facility] IPV 2012-02-11 Completed University of 00:00:00 [facility] HPV 2012-02-11 Completed University of 00:00:00 [facility] IPV 2012-02-11 Completed University of 00:00:00 [facility] HPV 2012-02-11 Completed University of 00:00:00 [facility] Meningococcal 2012-01-11 Completed University of Polysaccharide 00:00:00 [place] [facility] (groups A, C, Y and Branc h W-135) conjugate vaccine (MCV4P) TDAP 2012-01-11 Completed University of 00:00:00 [facility] Meningococcal 2012-01-11 Completed University of Polysaccharide 00:00:00 [place] [facility] (groups A, C, Y and Branc h W-135) conjugate vaccine (MCV4P) TDAP 2012-01-11 Completed University of 00:00:00 [facility] Meningococcal 2012-01-11 Completed University of Polysaccharide 00:00:00 [place] [facility] (groups A, C, Y and Branc h W-135) conjugate vaccine (MCV4P) TDAP 2012-01-11 Completed University of 00:00:00 [facility] Meningococcal 2012-01-11 Completed University of Polysaccharide 00:00:00 [place] [facility] (groups A, C, Y and Branc h W-135) conjugate vaccine (MCV4P) TDAP 2012-01-11 Completed University of 00:00:00 [facility] Meningococcal 2012-01-11 Completed University of Polysaccharide 00:00:00 [place] [facility] (groups A, C, Y and Branc h W-135) conjugate vaccine (MCV4P) TDAP 2012-01-11 Completed University of 00:00:00 [facility] Meningococcal 2012-01-11 Completed University of Polysaccharide 00:00:00 [place] [facility] (groups A, C, Y and Branc h W-135) conjugate vaccine (MCV4P) TDAP 2012-01-11 Completed University of 00:00:00 [facility] Meningococcal 2012-01-11 Completed University of Polysaccharide 00:00:00 [place] [facility] (groups A, C, Y and Branc h W-135) conjugate vaccine (MCV4P) TDAP 2012-01-11 Completed University of 00:00:00 [facility] Meningococcal 2012-01-11 Completed University of Polysaccharide 00:00:00 [place] [facility] (groups A, C, Y and Branc h W-135) conjugate vaccine (MCV4P) TDAP 2012-01-11 Completed University of 00:00:00 [facility] Meningococcal 2012-01-11 Completed University of Polysaccharide 00:00:00 [place] [facility] (groups A, C, Y and Branc h W-135) conjugate vaccine (MCV4P) TDAP 2012-01-11 Completed University of 00:00:00 [facility] Meningococcal 2012-01-11 Completed University of Polysaccharide 00:00:00 [place] [facility] (groups A, C, Y and Branc h W-135) conjugate vaccine (MCV4P) TDAP 2012-01-11 Completed University of 00:00:00 [facility] Meningococcal 2012-01-11 Completed University of Polysaccharide 00:00:00 [place] [facility] (groups A, C, Y and Branc h W-135) conjugate vaccine (MCV4P) TDAP 2012-01-11 Completed University of 00:00:00 [facility] Meningococcal 2012-01-11 Completed University of Polysaccharide 00:00:00 [place] [facility] (groups A, C, Y and Branc h W-135) conjugate vaccine (MCV4P) TDAP 2012-01-11 Completed University of 00:00:00 [facility] Meningococcal 2012-01-11 Completed University of Polysaccharide 00:00:00 [place] [facility] (groups A, C, Y and Branc h W-135) conjugate vaccine (MCV4P) TDAP 2012-01-11 Completed University of 00:00:00 [facility] Meningococcal 2012-01-11 Completed University of Polysaccharide 00:00:00 [place] [facility] (groups A, C, Y and Branc h W-135) conjugate vaccine (MCV4P) TDAP 2012-01-11 Completed University of 00:00:00 [facility] Meningococcal 2012-01-11 Completed University of Polysaccharide 00:00:00 [place] [facility] (groups A, C, Y and Branc h W-135) conjugate vaccine (MCV4P) TDAP 2012-01-11 Completed University of 00:00:00 [facility] Meningococcal 2012-01-11 Completed University of Polysaccharide 00:00:00 [place] [facility] (groups A, C, Y and Branc h W-135) conjugate vaccine (MCV4P) TDAP 2012-01-11 Completed University of 00:00:00 [facility] Vital Signs Vital Name Observation Time Observation Value Comments Source Systolic blood 2020-10-23 19:16:00 118 mm[Hg] Univer sity of pressure [facility] [place] [facility] Diastolic blood 2020-10-23 19:16:00 79 mm[Hg] Unive rsity of pressure [place] [facility] Heart rate 2020-10-23 19:16:00 66 /min Universi ty of [place] [facility] Body temperature 2020-10-23 19:16:00 36.67 Megha Univ ersity of [place] [facility] Respiratory rate 2020-10-23 19:16:00 18 /min Univ ersity of [place] [facility] Body height 2020-10-23 19:16:00 162.6 cm Universi ty of [facility] [place] [facility] Body weight 2020-10-23 19:16:00 67.586 kg [facility] of [facility] [place] [facility] BMI 2020-10-23 19:16:00 25.58 kg/m2 [facility] [place] [facility] Systolic blood 2020-08-14 22:39:00 112 mm[Hg] Univer sity of pressure [facility] [place] [facility] Diastolic blood 2020-08-14 22:39:00 75 mm[Hg] Unive rsity of pressure [facility] [place] [facility] Heart rate 2020-08-14 22:39:00 72 /min [facility]i ty of [facility] [place] [facility] Body temperature 2020-08-14 22:39:00 36.83 Megha [facility] ers[facility] of [facility] [place] [facility] Respiratory rate 2020-08-14 22:39:00 18 /min Univ ersity of [facility] Body height 2020-08-14 22:39:00 162.6 cm [facility] [place] [facility] Body weight 2020-08-14 22:39:00 66.225 kg [facility] [place] [facility] BMI 2020-08-14 22:39:00 25.06 kg/m2 [facility] [place] [facility] Systolic blood 2020-05-15 20:14:00 106 mm[Hg] Univer [facility]ity of pressure [place] [facility] Diastolic blood 2020-05-15 20:14:00 70 mm[Hg] Unive rsity of pressure [place] [facility] Heart rate 2020-05-15 20:14:00 80 /min [facility]i [facility] of [facility] [place] [facility] Body temperature 2020-05-15 20:14:00 37 Megha [facility] ers[facility] of [place] [facility] Respiratory rate 2020-05-15 20:14:00 18 /min Univ ersity of [facility] [place] [facility] Body height 2020-05-15 20:14:00 165.1 cm [facility] [place] [facility] Body weight 2020-05-15 20:14:00 68.675 kg [facility] [place] [facility] BMI 2020-05-15 20:14:00 25.19 kg/m2 [facility] [place] [facility] Systolic blood 2020-05-03 21:58:00 106 mm[Hg] Univer sity of pressure [facility] [place] [facility] Diastolic blood 2020-05-03 21:58:00 76 mm[Hg] Unive rsity of pressure [facility] Heart rate 2020-05-03 21:58:00 60 /min [facility] Body temperature 2020-05-03 21:58:00 36.39 Megha [facility] [place] [facility] Respiratory rate 2020-05-03 21:58:00 18 /min Univ ersity of [facility] [place] [facility] Body height 2020-05-03 21:58:00 162.6 cm [facility] [place] [facility] Body weight 2020-05-03 21:58:00 68.947 kg [facility] [place] [facility] BMI 2020-05-03 21:58:00 26.09 kg/m2 [facility] [place] [facility] Systolic blood 2020-04-16 16:25:00 109 mm[Hg] Univer sity of pressure [facility] Diastolic blood 2020-04-16 16:25:00 70 mm[Hg] Unive rsity of pressure [facility] Heart rate 2020-04-16 16:25:00 62 /min [facility] [place] [facility] Body temperature 2020-04-16 16:25:00 36.33 Megha [facility] [place] [facility] Respiratory rate 2020-04-16 16:25:00 16 /min Univ ersity of [facility] Body height 2020-04-16 16:25:00 165.1 cm [facility] [place] [facility] Body weight 2020-04-16 16:25:00 70.943 kg [facility] [place] [facility] BMI 2020-04-16 16:25:00 26.03 kg/m2 [facility] [place] [facility] Systolic blood 2020-03-27 10:00:00 114 mm[Hg] Univer sity of pressure [facility] [place] [facility] Diastolic blood 2020-03-27 10:00:00 71 mm[Hg] Unive rsity of pressure [facility] Heart rate 2020-03-27 10:00:00 67 /min Universi ty of [facility] Body temperature 2020-03-27 10:00:00 37 Megha Univ ersity of [facility] Respiratory rate 2020-03-27 10:00:00 16 /min Univ ersity of [facility] Oxygen saturation in 2020-03-26 23:30:00 99 /min University of Arterial blood by [facility] Pulse oximetry Branch Body height 2020-03-25 21:25:00 165.1 cm [facility] [place] [facility] [place] Body weight 2020-03-25 21:25:00 78.926 kg Universi ty of [facility] BMI 2020-03-25 21:25:00 28.96 kg/m2 [facility] ty of [facility] Systolic blood 2020-03-21 20:23:00 133 mm[Hg] Univer sity of pressure [facility] Diastolic blood 2020-03-21 20:23:00 85 mm[Hg] Unive rsity of pressure [facility] Heart rate 2020-03-21 20:23:00 92 /min [facility]i ty of [facility] Body temperature 2020-03-21 20:23:00 36.78 Megha [facility] ers[facility] of [facility] Respiratory rate 2020-03-21 20:23:00 18 /min Univ ersity of [facility] Body height 2020-03-21 20:23:00 165.1 cm [facility]i [facility] of [facility] Body weight 2020-03-21 20:23:00 80.196 kg [facility]i ty of [facility] BMI 2020-03-21 20:23:00 29.42 kg/m2 Universi ty of [facility] Systolic blood 2020-03-12 20:18:00 133 mm[Hg] Univer sity of pressure [facility] Diastolic blood 2020-03-12 20:18:00 79 mm[Hg] Unive rsity of pressure [facility] Heart rate 2020-03-12 20:18:00 86 /min [facility]i ty of [facility] Body temperature 2020-03-12 20:18:00 36.33 Megha [facility] of [facility] Respiratory rate 2020-03-12 20:18:00 18 /min Univ ersity of [facility] Body height 2020-03-12 20:18:00 162.6 cm [facility] Body weight 2020-03-12 20:18:00 78.926 kg [facility] BMI 2020-03-12 20:18:00 29.87 kg/m2 [facility] Systolic blood 2020-03-05 18:36:00 126 mm[Hg] Univer sity of pressure [facility] Diastolic blood 2020-03-05 18:36:00 74 mm[Hg] Unive rsity of pressure [facility] Heart rate 2020-03-05 18:36:00 92 /min [facility] Body temperature 2020-03-05 18:36:00 36.72 Megha [facility] Respiratory rate 2020-03-05 18:36:00 18 /min Univ ers[facility] of [facility] Body height 2020-03-05 18:36:00 165.1 cm [facility] Body weight 2020-03-05 18:36:00 78.109 kg [facility] BMI 2020-03-05 18:36:00 28.66 kg/m2 [facility] Systolic blood 2020-02-20 19:48:00 118 mm[Hg] Univer sity of pressure [facility] Diastolic blood 2020-02-20 19:48:00 78 mm[Hg] Unive rsity of pressure [facility] Heart rate 2020-02-20 19:48:00 80 /min [facility] Body temperature 2020-02-20 19:48:00 36.44 Megha [facility] Respiratory rate 2020-02-20 19:48:00 18 /min [facility] Body height 2020-02-20 19:48:00 162.6 cm [facility] Body weight 2020-02-20 19:48:00 78.109 kg [facility] BMI 2020-02-20 19:48:00 29.56 kg/m2 [facility] Systolic blood 2020-02-02 15:40:00 126 mm[Hg] Univer sity of pressure [facility] Diastolic blood 2020-02-02 15:40:00 79 mm[Hg] Unive rsity of pressure [facility] Heart rate 2020-02-02 15:40:00 99 /min [facility] Body temperature 2020-02-02 15:40:00 36.78 Megha [facility] Respiratory rate 2020-02-02 15:40:00 18 /min [facility] Body height 2020-02-02 15:40:00 165.1 cm [facility] Body weight 2020-02-02 15:40:00 76.204 kg [facility] BMI 2020-02-02 15:40:00 27.96 kg/m2 [facility] Systolic blood 2020-01-05 15:11:00 106 mm[Hg] Univer sity of pressure [facility] Diastolic blood 2020-01-05 15:11:00 71 mm[Hg] Unive rsity of pressure [facility] Heart rate 2020-01-05 15:11:00 65 /min [facility] Body temperature 2020-01-05 15:11:00 36.5 Megha [facility] Respiratory rate 2020-01-05 15:11:00 18 /min [facility] Body height 2020-01-05 15:11:00 165.1 cm [facility] Body weight 2020-01-05 15:11:00 72.031 kg [facility] BMI 2020-01-05 15:11:00 26.43 kg/m2 [facility] Systolic blood 2019-12-07 17:01:00 105 mm[Hg] Univer sity of pressure [facility] Diastolic blood 2019-12-07 17:01:00 69 mm[Hg] Unive rsity of pressure [facility] Heart rate 2019-12-07 17:01:00 72 /min [facility] Body temperature 2019-12-07 17:01:00 36.94 Megha [facility] Respiratory rate 2019-12-07 17:01:00 18 /min [facility] Body height 2019-12-07 17:01:00 162.6 cm [facility] Body weight 2019-12-07 17:01:00 70.126 kg [facility] BMI 2019-12-07 17:01:00 26.54 kg/m2 [facility] Systolic blood 2019-11-09 15:12:00 133 mm[Hg] Univer sity of pressure [facility] Diastolic blood 2019-11-09 15:12:00 70 mm[Hg] Unive rsity of pressure [facility] Heart rate 2019-11-09 15:12:00 112 /min [facility] Body temperature 2019-11-09 15:12:00 36.89 Megha [facility] Respiratory rate 2019-11-09 15:12:00 18 /min Univ [facility] Body height 2019-11-09 15:12:00 162.6 cm [facility] Body weight 2019-11-09 15:12:00 66.951 kg [facility] BMI 2019-11-09 15:12:00 25.34 kg/m2 [facility] Systolic blood 2019-08-15 19:19:00 109 mm[Hg] Univer sity of pressure [facility] Diastolic blood 2019-08-15 19:19:00 69 mm[Hg] Unive rsity of pressure [facility] Heart rate 2019-08-15 19:19:00 65 /min [facility] Body temperature 2019-08-15 19:19:00 36.94 Megha [facility] Respiratory rate 2019-08-15 19:19:00 18 /min [facility] Body height 2019-08-15 19:19:00 162.6 cm [facility] Body weight 2019-08-15 19:19:00 64.411 kg [facility] BMI 2019-08-15 19:19:00 24.37 kg/m2 [facility] Systolic blood 2019-03-07 15:10:00 113 mm[Hg] Univer sity of pressure [facility] Diastolic blood 2019-03-07 15:10:00 76 mm[Hg] Unive rsity of pressure [facility] Heart rate 2019-03-07 15:10:00 68 /min [facility] Body temperature 2019-03-07 15:10:00 36.39 Megha [facility] Respiratory rate 2019-03-07 15:10:00 18 /min [facility] Body height 2019-03-07 15:10:00 162.6 cm Universi ty [facility] Body weight 2019-03-07 15:10:00 62.596 [facility] BMI 2019-03-07 15:10:00 23.69 [facility]m2 [facility] Systolic blood 2019-02-07 14:51:00 125 mm[Hg] Univer sity of pressure [facility] Diastolic blood 2019-02-07 14:51:00 82 mm[Hg] Unive rsity of [facility] Heart rate 2019-02-07 14:51:00 76 /min [facility] Body temperature 2019-02-07 14:51:00 36.5 Megha [facility] Respiratory rate 2019-02-07 14:51:00 18 /min [facility] Body height 2019-02-07 14:51:00 165.1 cm [facility] Body weight 2019-02-07 14:51:00 62.234 [facility] BMI 2019-02-07 14:51:00 22.83 kg/m2 [facility] Procedures Procedure Date / Time Performing Clinician Source Performed CONSENT FOR CONTRACEPTION 2020-08-14 06:01:00 Doctor Unassigned, [facility] 2020-08-14 00:00:00 Nettie [facility] CBC WITH DIFF 2020-03-27 10:03:00 Eran Alva [facility] VENOUS CORD GAS 2020-03-26 12:26:00 [facility] 2020-03-25 21:08:00 Eran Alva [facility] ADC OR SOSA ONLY - RPR 2020-03-25 21:08:00 Eran Alva Un [facility] CBC WITH DIFF 2020-03-25 21:07:00 [facility] HIV 1/2 AG-AB WITH REFLEX 2020-03-25 21:07:00 [facility] 2020-03-25 20:45:00 Eran Alva [facility] RHO (D) IMMUNE GLOBULIN 2020-03-25 20:45:00 Eran Alva [facility] NOTICE OF PRIVACY 2020-03-21 21:16:04 Doctor Unassigned, [facility] PRACTICES [facility] CONSENT/REFUSAL FOR 2020-03-21 21:15:32 Doctor Unasshari, [facility] DIAGNOSIS AND TREATMENT [facility] ASSIGNMENT OF BENEFITS 2020-03-21 21:15:13 Doctor Unassigned, [facility] POCT URINALYSIS W/O 2020-03-21 00:00:00 Eran Alva [facility] SPECIFIC GRAVITY Medical Branch FLU VACC ([id number]), 6+ 2020-03-12 20:31:29 Nettie Estrada [facility] MONTHS, IM, QUAD Medical Branch POCT URINALYSIS W/O 2020-03-12 00:00:00 Nettie Estrada [facility] SPECIFIC GRAVITY Medical Branch DSU PRE-OP 2020-03-05 05:01:00 Doctor Darrick, [facility] POCT URINALYSIS W/O 2020-03-05 00:00:00 Eran Alva [facility] SPECIFIC GRAVITY Medical Branch POCT URINALYSIS W/O 2020-02-20 00:00:00 Eran Alva [facility] SPECIFIC GRAVITY Medical Branch POCT URINALYSIS W/O 2020-02-02 00:00:00 Eran Alva [facility] SPECIFIC GRAVITY Medical Branch 2 HR GLUCOSE TOLERANCE 2020-01-17 16:16:00 Nettie Estrada [facility] [place] 1 HR GLUCOSE TOLERANCE 2020-01-17 16:16:00 Nettie Estrada [facility] Medical Branch 3 HR GLUCOSE TOLERANCE 2020-01-17 16:14:00 Nettie Estrada [facility] Medical Branch GLUCOSE FASTING 2020-01-17 13:10:[address] [facility] Branch GLUCOSE FASTING 2020-01-17 13:10:00 Nettie Estrada [facility] GLUCOSE 1 HOUR POST 2020-01-05 16:35:00 Nettie Estrada [facility] CBC WITH DIFF 2020-01-05 16:35:00 Nettie Estrada [facility] TDAP VACCINE, >11 YRS, IM 2020-01-05 15:14:38 Eran Alva Un [facility] POCT URINALYSIS W/O 2020-01-05 00:00:00 Eran Alva [facility] SPECIFIC GRAVITY [facility] [place] POCT URINALYSIS W/O 2019-12-07 00:00:00 Nettie Estrada [facility] SPECIFIC GRAVITY [facility] [place] POCT URINALYSIS W/O 2019-11-09 15:15:00 Nettie Estrada [facility] AGREEMENTS AUTHORIZATIONS 2019-11-09 05:01:00 Doctor Unaanne, [facility] AND IRREVOCABLE [facility] ASSIGNMENTS (FORM 2001) GLUCOSE 1 HOUR POST 2019-09-19 14:43:00 Eran Alva [facility] CBC WITH DIFFERENTIAL 2019-09-19 14:43:00 Eran Alva [facility] HIV 1/2 AG-AB WITH REFLEX 2019-09-19 14:43:00 Eran Alva [facility] HB ABO GROUPING 2019-09-19 14:42:00 Eran Alva [facility] SCANNED LAB RESULTS 2019-09-19 05:01:00 Doctor Darrick, [facility] <14 WEEKS US 2019-08-16 15:39:13 Eran Alva [facility] LIMITED [facility] [place] ADC / LCC - DRUG SCREEN 2019-08-15 20:17:00 Eran Alva [facility] TRIAGE Medical Branch INSURANCE CORRESPONDENCE 2019-08-15 06:01:00 Doctor Darrick, [facility] NO SHOW OR MISSED 2019-03-07 14:56:38 Doctor Darrick, [facility] APPOINTMENT POLICY [facility] ACKNOWLEDGEMENT US PELVIS COMPLETE WITH 2019-02-14 14:54:22 Nettie Estrada [facility] TRANSVAGINAL [facility] [place] ASSIGNMENT OF BENEFITS 2019-02-14 14:05:20 Doctor Shiva Hollingsworth [facility] Name [facility] [place] REFERRAL- REQUEST/RESPONSE 2019-01-13 05:01:00 Doctor Darrick , [facility] Name Medical Branch INSURANCE CORRESPONDENCE 2018-07-29 06:01:00 Doctor Darrick [facility] Name Medical Branch Encounters Start End Encounter Admission Attending Care Care Encounter Source Date/Time Date/Time Type Type Clinicians Facility Department ID 2021-04-18 Outpatient P [facility] LATA [id number] Univers 20:36[facility] 2020-10-23 2020-10-23 [facility]..892.518 [id number] Univers 14:01:45 14:35:38 Visit Nettie Davies [id number] i [id number] [phone] Nv dical nal [address] [place] [address] 2020-10-23 2020-10-23 Outpatient R KEITH [facility] [id number] Univers 14:00:00 14:00:00 NETTIE [id number] [facility] 2020-10-23 2020-10-23 Outpatient R KEITH [facility] [id number] Univers 14:00:00 14:00:00 NETTIE [facility] 2020-10-15 2020-10-15 Outpatient R KEITH [facility] [id number] Univers 08:00:00 08:00:00 NETTIE [id number] [facility] 2020-10-15 2020-10-15 Outpatient R KEITH [facility] [id number] Univers 08:00:00 08:00:00 [facility] 2020-10-10 2020-10-10 Telephone Eran Alva [facility] 1..840.114 [id number] Univers 00:00:00 00:00:00 Enriqueta Davies [id number] i [id number] [phone] Nv dical nal [address] [place] [address] 2020-09-10 2020-09-10 Patient Cole [facility] 1.2.840.114 [id number] Univers 00:00:00 00:00:00 Outreach Jae PRIMARY [id number] i ty of [place] [facility] [id number] [phone] [address] 2020-08-14 2020-08-14 [facility] [id number] Univers 16:17:44 17:07:13 Visit Nettie Davies [id number] i [id number] [phone] [address] 2020-08-14 2020-08-14 Outpatient R KEITH [facility] [id number] [id number]-20 Univers 16:15:00 16:15:00 NETTIE [id number] [facility] 2020-08-14 2020-08-14 Outpatient R KEITH [facility] [id number] Univers 16:15:00 16:15:00 NETTIE [facility] 2020-08-14 2020-08-14 Orders Doctor RASHID 1.2.840.114 [id number] Univers 00:00:00 00:00:00 Only Unassigned, HARIS [id number] ity of Chicken [facility] [id number] Iwll as [phone] [address] 2020-08-05 2020-08-05 Outpatient R KEITH [facility] [id number] Univers 13:15:00 13:15:00 NETTIE [facility] 2020-05-27 2020-05-27 Telephone Eran Alva [facility] 1.2.840.114 [id number] Univers 00:00:00 00:00:00 Enriqueta Davies 350.1.13.10 i [id number] [phone] [address] 2020-05-15 2020-05-15 [facility] [id number] [id number] Univers 13:39:18 14:34:06 Visit Nettie Davies [id number] i [id number] [phone] Nv dic[address] 2020-05-15 2020-05-15 Outpatient R KEITH [facility] [id number] [id number]-20 Univers 13:45:00 13:45:00 NETTIE [id number] [facility] 2020-05-15 2020-05-15 Outpatient R KEITH [facility] [id number] Univers 13:45:00 13:45:00 ENTTIE [facility] 2020-05-03 2020-05-03 Office Jayne Arana [facility] 1.2.840.114 [id number] Univers 15:50:08 16:36:42 Visit Samson [id number] i [id number] [phone] [address] 2020-05-03 2020-05-03 Outpatient R GILLESDINO [facility] [id number] Univers 16:00:00 16:00:00 DEVIN [id number] [facility] 2020-05-03 2020-05-03 Outpatient R DIAZ [facility] [id number] Univers 16:00:00 16:00:00 DEVIN [facility] 2020-05-03 2020-05-03 Outpatient R JAYNE ARANA [facility] [id number] Univers 16:00:00 16:00:00 [facility] 2020-05-03 2020-05-03 Patient Eran Alva [facility] 1.2.194.595 [id number] Univers 00:00:00 00:00:00 Secure Msg Cam Samson [id number] it[id number] [phone] [address] 2020-04-16 2020-04-16 Routine Keith [facility] [id number] Univers 11:13:27 11:28:27 Nettie Davies 350.1.13.10 ity of [id number] [phone] [facility] 2020-04-16 2020-04-16 Outpatient R KEITH, [facility] [id number] 2N-20 Univers 11:15:00 11:15:00 NETTIE [id number] ity [facility] 2020-04-16 2020-04-16 Outpatient R KEITH [facility] [id number] Univers 11:15:00 11:15:00 NETTIE ity [facility] 2020-04-02 2020-04-02 Telephone Eran Alva [facility] 1.2.840.114 [id number] Univers 00:00:00 00:00:00 Cam Burr 350.1.13.10 i [id number] [phone] [address] 2020-03-25 2020-03-27 [facility] Eran Alva [facility] 1.2.840.114 [id number] Univers 14:52:00 15:00:00 Encounter Enriqueta Burr [id number] [id number] [phone] [facility] [address] [place] 2020-03-25 2020-03-25 Telephone Eran Alva [facility] 1.2.840.114 [id number] Univers 00:00:00 00:00:00 Cam Burr 350.1.13.10 i [id number] [phone] [address] 2020-03-22 2020-03-22 Laboratory Only, Adc Test [facility] 1.2.840. 114 [id number] Univers 14:14:39 14:29:39 Only Hakeem Camejoton 350.1.13.10 ity of [id number] [phone] [facility] [address] [place] 2020-03-22 2020-03-22 Outpatient R [facility] [id number] Univers 14:15:00 14:15:00 ity of [facility] 2020-03-22 2020-03-22 Outpatient R [facility] [id number] Univers 14:15:00 14:15:00 ity of [facility] 2020-03-21 2020-03-21 Routine Alva [facility] [id number] [id number] Univers 14:59:41 15:40:31 Cam Burr [id number] ity [id number] [phone] [address] 2020-03-21 2020-03-21 Outpatient R NIDA [facility] [id number] [id number]-20 Univers 15:00:00 15:00:00 ity [facility] 2020-03-21 2020-03-21 Outpatient R NIDA [facility] [id number] Univers 15:00:00 15:00:00 ity [facility] 2020-03-12 2020-03-12 Outpatient R KEITH [facility] [id number] Univers 15:30:00 15:30:00 NETTIE [id number] ity [facility] 2020-03-12 2020-03-12 Outpatient R KEITH [facility] [id number] Univers 15:30:00 15:30:00 [facility] 2020-03-12 2020-03-12 [facility] [id number] Univers 15:02:57 15:17:57 Nettie Davies 350.1.13.10 ity [id number] [phone] [address] 2020-03-07 2020-03-07 Outpatient R KEITH [facility] [id number] Univers 10:00:00 10:00:00 NETTIE [facility] 2020-03-05 2020-03-05 [facility] [id number] Univers 12:47:35 14:27:04 Cam Burr 350.1.13.10 ity [id number] [phone] [address] 2020-03-05 2020-03-05 Outpatient R ERAN ALVA [facility] [id number] [id number]-20 Univers 13:15:00 13:15:00 [id number] ity [facility] 2020-03-05 2020-03-05 Outpatient ERAN BOLANOS [facility] [id number] Univers 13:15:00 13:15:00 ity [facility] 2020-02-20 2020-03-05 Routine Nida [facility] [id number] Univers 13:51:34 08:40:42 Erniqueta Burr 350.1.13.10 ity of [id number] [phone] Nv dical nal [address] [facility] 2020-03-05 2020-03-05 Twisting Machine Operator 2, Adc Lab [facility] 1.2.840.114 [id number] Univers 08:24:44 08:39:44 Visit Eran Alva Enriqueta Davies 350.1.13.10 it[place] of [id number] [phone] Nv dical nal [address] [facility] 2020-03-05 2020-03-05 Orders Doctor RASHID 1.2.840.114 [id number] Univers 00:00:00 00:00:00 Only Unassigned, HARIS 350.1.13.10 ity of [place] [facility] [id number] Will as [phone] [address] 2020-02-20 2020-02-20 Outpatient R NIDA ERAN [facility] [id number] Univers 14:00:00 14:00:00 ity [facility] 2020-02-20 2020-02-20 Out[facility] [id number] Univers 14:00:00 14:00:00 ity of [facility] 2020-02-16 2020-02-16 Outpatient R NIDA [facility] [id number] Univers 10:00:00 10:00:00 [id number] ity [facility] 2020-02-16 2020-02-16 Outpatient R NIDA [facility] [id number] Univers 10:00:00 10:00:00 ity [facility] 2020-02-02 2020-02-02 Routine Nettie Estrada [facility] 1.2.840.11 [id number] Univers 10:06:44 11:28:58 Eran Alva Samson 350.1.13.10 ity [id number] [phone] [address] 2020-02-02 2020-02-02 Outpatient R ERAN ALVA [facility] [id number] Univers 10:15:00 10:15:00 [id number] ity [facility] 2020-02-02 2020-02-02 Outpatient R NIDA [facility] [id number] Univers 10:15:00 10:15:00 ity of [facility] 2020-01-31 2020-01-31 Outpatient R NIDA [facility] [id number]-20 Univers 11:15:00 11:15:00 [id number] ity of [facility] 2020-01-31 2020-01-31 Outpatient R NIDA ERAN [facility] [id number] Univers 11:15:00 11:15:00 ity of [facility] 2020-01-19 2020-01-19 Outpatient R KEITH [facility] [id number] [id number]-20 Univers 10:00:00 10:00:00 NETTIE [id number] [facility] 2020-01-19 2020-01-19 Outpatient R KEITH [facility] [id number] Univers 10:00:00 10:00:00 NETTIE [facility] 2020-01-19 2020-01-19 [facility]ici [facility] 1..840.114 [id number] Univers 08:05:16 09:55:59 ne Visit Nettie Davies 350.1.13.10 [place] [phone] [address] 2020-01-17 2020-01-17 Twisting Machine Operator 2, Adc Lab [facility] 1.2.840.114 [id number] Univers 08:07:24 08:22:24 Visit Eran Alva Enriqueta Davies 350.1.13.10 it[place] of [place] [phone] Nv dical nal [address] [facility] 2020-01-17 2020-01-17 Outpatient R [facility] [id number] Univers 08:00:00 08:00:00 [id number] ity of [facility] 2020-01-17 2020-01-17 Outpatient R [facility] [id number] Univers 08:00:00 08:00:00 ity of [facility] 2020-01-17 2020-01-17 Telephone [facility] 1.2.840.114 [id number] Univers 00:00:00 00:00:00 Nettie Davies 350.1.13.10 i ty [place] [phone] [address] 2020-01-17 2020-01-17 [facility] 1.2.840.114 [id number] Univers 00:00:00 00:00:00 Nettie Davies 350.1.13.10 i ty [place] [phone] Nv dical nal [address] [facility] 2020-01-05 2020-01-05 Twisting Machine Operator 2, [facility] Lab [facility] 1.2.840.114 [id number] Univers 10:33:46 10:48:46 Visit Eran Alva 350.1.13.10 ity of [place] [phone] Nv dical nal [address] [facility] 2020-01-05 2020-01-05 Routine Nida Eran [facility] [id number] Univers 09:08:18 10:27:02 Enriqueta Davies 350.1.13.10 ity of [place] 4[place] [phone] [address] 2020-01-05 2020-01-05 Outpatient R ERAN ALVA [facility] [id number]-20 Univers 09:45:00 09:45:00 [id number] ity of [facility] 2020-01-05 2020-01-05 Outpatient R ERAN ALVA [facility] [id number] Univers 09:45:00 09:45:00 ity of [facility] 2020-01-05 2020-01-05 Case Keith [facility] [id number] Univers 00:00:00 00:00:00 Management Nettie Davies 350.1.13.10 it[place] of [place] [phone] [address] 2020-01-05 2020-01-05 Telephone Keith [facility] 1.2.840.114 [id number] Univers 00:00:00 00:00:00 Nettie Davies 350.1.13.10 i ty of [place] [phone] [address] 2020-01-04 2020-01-04 Outpatient R NIDA ERAN [facility] [id number]-20 Univers 10:45:00 10:45:00 [id number] ity of [facility] 2020-01-04 2020-01-04 Outpatient R NIDA ERAN [facility] [id number] Univers 10:45:00 10:45:00 ity of [facility] 2020-01-04 2020-01-04 Twisting Machine Operator [facility]trasound[facility] 1.2 .840.114 [id number] Univers 08:30:21 08:59:44 Visit Raegan Veliz MANAGER HOSPICE 350.1.13.10 ity of [facility] [id number] Will as MATERNAL [phone] Med ical & CHILD [address] [place] [address] 2020-01-04 2020-01-04 Outpatient P [facility] [id number] Univers 08:30:00 08:30:00 ity [facility] 2019-12-07 2019-12-07 Routine Nettie Estrada [facility] 1.2.840.11 [id number] Univers 11:35:06 12:35:52 Eran Alva 350.1.13.10 ity of [place] [phone] [address] 2019-12-07 2019-12-07 Outpatient R ERAN ALVA [facility] [id number]-20 Univers 11:30:00 11:30:00 [id number] ity of [facility] 2019-12-07 2019-12-07 Outpatient R ERAN ALVA [facility] [id number] Univers 11:30:00 11:30:00 ity of [facility] 2019-11-29 2019-11-29 Telephone Eran Alva [facility] 1.2.840.114 [id number] Univers 00:00:00 00:00:00 Cam Burr 350.1.13.10 i ty [id number] [phone] [address] 2019-11-28 2019-11-28 Telephone Eran Alva [facility] 1.2.840.114 [id number] Univers 00:00:00 00:00:00 Cam Burr 350.1.13.10 i ty of [place] [phone] Nv dic[address] 2019-11-14 2019-11-14 Patient Doctor [facility] 1.2.840.114 [id number] Univers 00:00:00 00:00:00 Secure Msg Unassigned, Burr 350.1.13.10 ity of [place] [phone] [address] 2019-11-10 2019-11-10 Twisting Machine Operator Ultrasound, Adc [facility] 1.2 .840.114 [id number] Univers 07:53:40 08:53:40 Visit Raegan Veliz 350.1.13.10 ity of [place] [phone] [address] 2019-11-10 2019-11-10 Outpatient R [facility] [id number] Univers 08:00:00 08:00:00 [id number] ity [facility] 2019-11-10 2019-11-10 Outpatient P [facility] [id number] Univers 08:00:00 08:00:00 ity of [facility] 2019-11-10 2019-11-10 Patient Doctor [facility] 1.2.840.114 [id number] Univers 00:00:00 00:00:00 Secure Msg Unassigned, Burr 350.1.13.10 ity of [place] [phone] [facility]ical [facility] 2019-11-09 2019-11-09 Twisting Machine Operator 2, Adc Lab [facility] 1.2.840.114 [id number] Univers 10:34:57 10:49:57 Visit Nettie Estrada 350.1.13.10 it[place] of [place] [phone] [facility] [address] [facility] 2019-11-09 2019-11-09 Outpatient R KEITH [facility] [id number]-20 Univers 10:30:00 10:30:00 NETTIE [id number] ity [facility] 2019-11-09 2019-11-09 Outpatient R KEITH [facility] [id number] Univers 10:30:00 10:30:00 NETTIE ity [facility] 2019-11-09 2019-11-09 Routine Keith [facility] 1.2.640.168 [id number] Univers 10:03:21 10:18:21 Nettie Davies 350.1.13.10 ity of [place] [phone] [facility] [address] [facility] 2019-11-09 2019-11-09 Orders Doctor RASHID 1.2.840.114 [id number] Univers 00:00:00 00:00:00 Only Unassigned, HARIS [id number] ity of Chicken [facility] [id number] Will as [phone] [address] 2019-10-11 2019-10-11 Telemedici Eran Alva [facility] [id number] Univers 08:14:46 11:21:29 ne Visit Enriqueta Davies [id number] [id number] [phone] Nv dical nal [address] [place] [address] 2019-10-11 2019-10-11 Outpatient R ERAN ALVA [facility] [id number] Univers 10:30:00 10:30:00 [id number] ity of [facility] 2019-10-11 2019-10-11 Outpatient R ERAN ALVA [facility] [id number] Univers 10:30:00 10:30:00 ity [facility] 2019-10-03 2019-10-03 Telephone Eran Alva [facility] [id number] Univers 00:00:00 00:00:00 Cam Burr [id number] i [id number] [phone] [place] dical nal [address] [place] [address] 2019-10-03 2019-10-03 Telephone Eran Alva [facility] 1.2.840.114 [id number] Univers 00:00:00 00:00:00 Cam Burr 350.1.13.10 [place] [phone] N[place] dical nal [address] [place] [address] 2019-09-20 2019-09-20 Patient Eran Alva [facility] [id number] Univers 00:00:00 00:00:00 Secure Msg Cam Burr 350.1.13.10 it[place] [phone] Nv dical nal [address] [place] [address] 2019-09-20 2019-09-20 Patient Eran Alva [facility] 1.2.163.857 [id number] Univers 00:00:00 00:00:00 Secure Msg Cam Burr 350.1.13.10 [place] [phone] Nv dical nal [address] [place] [address] 2019-09-19 2019-09-19 Twisting Machine Operator 2, [facility] 1.2.840.114 [id number] Univers 08:19:12 08:34:12 Visit Eran Alva Cam Burr 350.1.13.10 it[place] [phone] Nv dical nal 353 [facility] 2019-09-19 2019-09-19 Outpatient R KEITH [facility] [id number] Univers 08:15:00 08:15:00 NETTIE ity of [facility] 2019-09-19 2019-09-19 Outpatient R [facility] [id number] -[id number] Univers 08:00:00 08:00:00 [id number] ity of [facility] 2019-09-19 2019-09-19 Orders Doctor RASHID 1.2.840.114 [id number] Univers 00:00:00 00:00:00 Only Unassigned, HARIS 350.1.13.10 ity of [facility] 4.2.7.2.686 Will as [phone] [address] 2019-09-18 2019-09-18 Telephone Eran Alva [facility] 1.2.840.114 [id number] Univers 00:00:00 00:00:00 Cam Samson 350.1.13.10 [place] [phone] Nv dical nal 134 [facility] 2019-09-13 2019-09-13 Telemedici Eran Alva [facility] 1.2.840.114 [id number] Univers 08:12:04 11:05:05 ne Visit Enriqueta Davies 350.1.13.10 it[place] [phone] Nv dical nal 134 [facility] 2019-09-13 2019-09-13 Outpatient R ERAN ALVA [facility] [id number] 2N-20 Univers 09:30:00 09:30:00 [id number] ity of [facility] 2019-09-13 2019-09-13 Outpatient R NIDA ERAN [facility] [id number] Univers 09:30:00 09:30:00 ity of [facility] 2019-08-28 2019-08-28 Telephone NurseRocky [facility] 1..840.114 [id number] Univers 00:00:00 00:00:00 Women's Samson 350.1.13.10 i ty of Health [place] [phone] [address] 2019-08-16 2019-08-16 Case Keith MEAURA 1.2.993.749 [id number] Univers 00:00:00 00:00:00 Management Nettie Davies 350.1.13.10 it[place] of [place] [phone] [address] 2019-08-15 2019-08-15 Initial Eran Alva [facility] 1.2.840.114 [id number] Univers 12:42:35 14:11:47 Nettie Estrada 350.1.13.10 ity of [place] [phone] [address] 2019-08-15 2019-08-15 Outpatient R KEITH [facility] [id number] 2N-20 Univers 13:00:00 13:00:00 NETTIE [id number] ity [facility] 2019-08-15 2019-08-15 Outpatient R KEITH [facility] [id number] Univers 13:00:00 13:00:00 NETTIE [facility] 2019-08-15 2019-08-15 Orders Doctor MIKE 1.2.840.114 [id number] Univers 00:00:00 00:00:00 Only Unassigned, HARIS 350.1.13.10 ity of [place] [facility] 4.2.7.2.686 Will as [phone] [address] 2019-07-14 2019-07-14 Telephone Eran Alva [facility] 1.2.840.114 [id number] Univers 00:00:00 00:00:00 Enriqueta Davies 350.1.13.10 i [place] [phone] [address] 2019-03-07 2019-03-07 Office Keith MEAURA 1.2.624.366 [id number] Univers 09:56:49 10:37:42 Visit Nettie Davies 350.1.13.10 i [place] [phone] Nv dical [address] 2019-03-07 2019-03-07 Orders Doctor RASHID 1.2.840.114 [id number] Univers 00:00:00 00:00:00 Only Unassigned, HARIS 350.1.13.10 ity of [place] [facility]OSP[facility] 4.2.7.2.686 Will as [phone] [address] 2019-02-14 2019-02-14 [facility] 1.2.840.114 [id number] Univers 09:00:00 23:59:00 Encounter Nettie Davies 350.1.13.10 it[place] [phone] [facility] [address] 2019-02-14 2019-02-14 Orders Doctor RASHID 1.2.840.114 [id number] Univers 00:00:00 00:00:00 Only Unassigned, HARIS 350.1.13.10 ity of [place] [facility]OSP[facility] 4.2.7.2.686 Will as [phone] [address] 2019-02-08 2019-02-08 Case [facility] 1.2.862.473 [id number] Univers 00:00:00 00:00:00 Management Nettie Davies 350.1.13.10 it[place] [phone] [address] 2019-02-07 2019-02-07 Office [facility] 1.2.017.528 [id number] Univers 09:15:31 10:19:33 Visit Nettie Davies 350.1.13.10 i [place] [phone] Nv dical [address] 2019-01-13 2019-01-13 Orders Doctor RASHID 1.2.840.114 [id number] Univers 00:00:00 00:00:00 Only Unassigned, HARIS 350.1.13.10 ity of [place] [facility]OSP[facility] 4.2.7.2.686 Will as [phone] [address] 2018-07-29 2018-07-29 Orders Doctor RASHID 1.2.840.114 [id number] Univers 00:00:00 00:00:00 Only Unassigned, HARIS 350.1.13.10 ity of [place] [facility]OSPITAL 4.2.7.2.686 Will as [phone] [address] Results Test Description Test Time Test Comments Results Result Comments Source POCT TEST 2020-08-14 22:46:00 Test Item Value Reference Range Interpretation Comme nts POCT PREG (test code = 1605) Negative On board controls acceptable with C Line (test code = 3574) Yes POCT PREG LOT # (test code = 3575) POCT PREG TEST DATE (test code = 3576) [facility] [id number] 22:46:00 Test Item Value Reference Range Interpretation Comments POCT PREG (test code = 1605) Negative On board controls acceptable with C Yes Line (test code = 3574) POCT PREG LOT # (test code = 3575) POCT PREG TEST DATE (test code = 3576) [facility] with [id number] 11:05:00 Test Item Value Reference Range Interpretation Comments WBC (test code = See_Comment H [Automated 8890-2) message] The sy stem which generated this result transmitted reference range : 4.30 - 11.10 10*3/?L. The reference range was not used to interpret this result as normal/abnormal . RBC (test code = See_Comment L [Automated 149-8) message] The sy stem which generated this result transmitted reference range : 3.93 - 5.25 10*6/?L. The reference range was not used to interpret this result as normal/abnormal . HGB (test code = 10.9 g/dL 11.6-15 L 718-7) HCT (test code = 31.7 % 35.7-45.2 L 4544-3) MCV (test code = 93.0 fL 80.6-95.5 787-2) MCH (test code = 32.0 pg 25.9-32.8 785-6) MCHC (test code = 34.4 g/dL 31.6-35.1 786-4) RDW-SD (test code = 44.1 fL 39-49.9 29353-9) RDW-CV (test code = 13.2 % 12-15.5 788-0) PLT (test code = See_Comment [Automated 777-3) message] The sy stem which generated this result transmitted reference range : 166 - 358 10*3/ ?L. The reference r elena was not used to interpret this result as normal/abnormal . MPV (test code = 10.1 fL 9.5-12.9 41107-1) NRBC/100 WBC (test See_Comment [Automat ed code = 9539244196) message] The system which generated this result transmitted reference range : 0.0 - 10.0 /100 WBCs. The refer ence range was not u sed to interpret th is result as normal/abnormal . NRBC x10^3 (test code <0.01 See_Comment [Auto mated = 0873792584) message] The s ystem which generated this result transmitted reference range : 10*3/?L. The reference range was not used to interpret this result as normal/abnormal . GRAN MAT (NEUT) % 65.9 % (test code = 770-8) IMM GRAN % (test code 1.70 % = 6534867305) LYMPH % (test code = 24.1 % 736-9) MONO % (test code = 6.7 % 5905-5) EOS % (test code = 1.2 % 713-8) BASO % (test code = 0.4 % 706-2) GRAN MAT x10^3(ANC) 9.51 10*3/uL 1.88-7.09 H (test code = 5039268111) IMM GRAN x10^3 (test 0.25 10*3/uL 0-0.06 H code = 4147746277) LYMPH x10^3 (test code 3.47 10*3/uL 1.32-3.29 H = 731-0) MONO x10^3 (test code 0.96 10*3/uL 0.33-0.92 H = 742-7) EOS x10^3 (test code = 0.17 10*3/uL 0.03-0.39 711-2) BASO x10^3 (test code 0.06 10*3/uL 0.01-0.07 = 704-7) Lab Interpretation Abnormal (test code = 99000-2) [facility] IMMUNE [id number] 18:56:36 Test Item Value Reference Range Interpretation Comments RHIG CANDIDATE? No- see comment Patient i s not a (test code = candidate for R hIg- 5055) Patient is Rh Positive.Perfor med at [facility] Laboratory Services - [facility] Blood [address] [place] [address]Zmct Free: [phone] A No. [id number] [facility] Cord [id number] 12:39:00 Test Item Value Reference Range Interpretation Comments VENOUS BASE EXCESS, CORD mEq/L (test code = 7767164555) VENOUS PH, CORD (test 7.25-7.45 code = 2987787571) VENOUS PC02, CORD (test See_Comment [Au tomated message] code = 2174972133) The syste m which generated this result transmitted ref erence range: 27 - 49 mmHg. The reference r elena was not used to interpret this result as normal/abnor mal. VENOUS PO2, CORD (test See_Comment H [Aut omated message] code = 5506838081) The syste m which generated this result transmitted ref erence range: 17 - 41 mmHg. The reference r elena was not used to interpret this result as normal/abnor mal. VENOUS BICARBONATE, CORD See_Comment [A utomated message] (test code = 7109550337) The system which generated this result transmitted ref erence range: 12 - 29 mEq/L. The reference r elena was not used to interpret this result as normal/abnor mal. Lab Interpretation (test Abnormal code = 71210-4) [facility] Center[facility] Cord [id number] 12:37:00 Test Item Value Reference Range Interpretation Comments BASE EXCESS, CORD (test mEq/L code = 4357936910) AC PH, CORD (BEAKER) 7.18-7.38 L (test code = 7059455400) PC02, CORD (test code = See_Comment H [Au tomated message] 8498362576) The system [employer] generated this result transmitted ref erence range: 32 - 66 mmHg. The reference r elena was not used to interpret this result as normal/abnor mal. PO2, CORD (test code = See_Comment [Aut omated message] 0670696610) The system [employer] generated this result transmitted ref erence range: 10 - 30 mmHg. The reference r elena was not used to interpret this result as normal/abnor mal. BICARBONATE, CORD (test See_Comment H [Au tomated message] code = 3223236170) The syste m which generated this result transmitted ref erence range: 17 - 27 mEq/L. The reference r elena was not used to interpret this result as normal/abnor mal. Lab Interpretation (test Abnormal code = 96966-4) [facility] Center[facility] OR SOSA ONLY - [id number] 03:43:00 Test Item Value Reference Range Interpretation Comments RPR (Qualitative) (test code = Nonreactive Nonreactive 33835-1) Lab Interpretation (test code = Normal 96248-7) [facility] CenterHepatitis B Surface [id number] 02:42:00 Test Item Value Reference Range Interpretation Comments HBsAg Semi-Quantitative (test code = Negative Negative 5195-3) [facility] CenterHIV [facility]2 AG-AB WITH [id number] 22:52:00 Test Item Value Reference Range Interpretation Comments HIV Negative Negative Semi-quantitative (test code = 00968-1) TRISHA (test code = Non-reactive for HIV-1 TRISHA) antigen and HIV-1/HIV-2 antibodies. ?No laboratory evidence of HIV infection. ?Repeat in 2-4 weeks if acute HIV infection is suspected. [facility] CenterType and Screen - ONCE [id number] 22:06:25 Test Item Value Reference Range Interpretation Comments ABO & RH (test code B Positive Performe d at [facility] = 20) Laboratory Serv [facility] Blood Bank1 [address] [place] [phone] Free: [phone] A No. [id number] IAT (test code = Negative Performed a t [facility] 1185) Laboratory Serv [facility] Blood [facility]1 [address] [place] [address]Ubqv Free: [phone] A No. [id number] [facility] with [id number] 21:57:00 Test Item Value Reference Range Interpretation Comments WBC (test code = See_Comment H [Automated 6690-2) message] The sy stem which generated this result transmitted reference range : 4.30 - 11.10 10*3/?L. The reference range was not used to interpret this result as normal/abnormal . RBC (test code = See_Comment L [Automated 789-8) message] The sy stem which generated this result transmitted reference range : 3.93 - 5.25 10*6/?L. The reference range was not used to interpret this result as normal/abnormal . HGB (test code = 12.3 g/dL 11.6-15 718-7) HCT (test code = 35.4 % 35.7-45.2 L 4544-3) MCV (test code = 91.9 fL 80.6-95.5 787-2) MCH (test code = 31.9 pg 25.9-32.8 785-6) MCHC (test code = 34.7 g/dL 31.6-35.1 786-4) RDW-SD (test code = 42.9 fL 39-49.9 60623-6) RDW-CV (test code = 13.1 % 12-15.5 788-0) PLT (test code = See_Comment [Automated 777-3) message] The sy stem which generated this result transmitted reference range : 166 - 358 10*3/ ?L. The reference r elena was not used to interpret this result as normal/abnormal . MPV (test code = 10.0 fL 9.5-12.9 37168-0) NRBC/100 WBC (test See_Comment [Automat ed code = 6669033511) message] The system which generated this result transmitted reference range : 0.0 - 10.0 /100 WBCs. The refer ence range was not u sed to interpret th is result as normal/abnormal . NRBC x10^3 (test code <0.01 See_Comment [Auto mated = 6194278663) message] The s ystem which generated this result transmitted reference range : 10*3/?L. The reference range was not used to interpret this result as normal/abnormal . GRAN MAT (NEUT) % 71.2 % (test code = 770-8) IMM GRAN % (test code 2.70 % = 8470840285) LYMPH % (test code = 18.1 % 736-9) MONO % (test code = 6.9 % 5905-5) EOS % (test code = 0.6 % 713-8) BASO % (test code = 0.5 % 706-2) GRAN MAT x10^3(ANC) 8.94 10*3/uL 1.88-7.09 H (test code = 8553520686) IMM GRAN x10^3 (test 0.34 10*3/uL 0-0.06 H code = 5225904054) LYMPH x10^3 (test code 2.27 10*3/uL 1.32-3.29 = 731-0) MONO x10^3 (test code 0.86 10*3/uL 0.33-0.92 = 742-7) EOS x10^3 (test code = 0.08 10*3/uL 0.03-0.39 711-2) BASO x10^3 (test code 0.06 10*3/uL 0.01-0.07 = 704-7) Lab Interpretation Abnormal (test code = 74379-0) [facility] URINALYSIS W/O SPECIFIC [id number] 20:26:00 Test Item Value Reference Range Interpretation Comments POCT PH U (test code = 3254) n/a 5-8 POCT U LEUK EST (test code = 3263) n/a Negative - Negative POCT U NIT (test code = 3262) n/a Negative - Negative POCT U PROT (test code = 3259) neg Negative - Negative POCT U GLU (test code = 3256) neg Negative - Negative POCT U KETONE (test code = 3258) n/a Negative - Negative POCT U BLD (test code = 3257) n/a Negative - Negative Lab Interpretation (test code = Normal 37804-0) [facility] URINALYSIS W/O SPECIFIC [id number] 20:18:00 Test Item Value Reference Range Interpretation Comments POCT PH U (test code = 3254) N/A 5-8 POCT U LEUK EST (test code = N/A Negative - Negative 3263) POCT U NIT (test code = 3262) N/A Negative - Negative POCT U PROT (test code = 3259) Negative Negative - Negative POCT U GLU (test code = 3256) Negative Negative - Negative POCT U KETONE (test code = 3258) N/A Negative - Negative POCT U BLD (test code = 3257) N/A Negative - Negative [facility] URINALYSIS W/O SPECIFIC [id number] 18:44:00 Test Item Value Reference Range Interpretation Comments POCT PH U (test code = 3254) n/a 5-8 POCT U LEUK EST (test code = 3263) na/ Negative - Negative POCT U NIT (test code = 3262) n/a Negative - Negative POCT U PROT (test code = 3259) neg Negative - Negative POCT U GLU (test code = 3256) neg Negative - Negative POCT U KETONE (test code = 3258) n/a Negative - Negative POCT U BLD (test code = 3257) n/a Negative - Negative Lab Interpretation (test code = Normal 03562-1) [facility] URINALYSIS W/O SPECIFIC [id number] 19:52:00 Test Item Value Reference Range Interpretation Comments POCT PH U (test code = 3254) n/a 5-8 POCT U LEUK EST (test code = 3263) n/a Negative - Negative POCT U NIT (test code = 3262) n/a Negative - Negative POCT U PROT (test code = 3259) neg Negative - Negative POCT U GLU (test code = 3256) neg Negative - Negative POCT U KETONE (test code = 3258) n/a Negative - Negative POCT U BLD (test code = 3257) n/a Negative - Negative Lab Interpretation (test code = Normal 37450-6) [facility] URINALYSIS W/O SPECIFIC [id number] 19:52:00 Test Item Value Reference Range Interpretation Comments POCT PH U (test code = 3254) n/a 5-8 POCT U LEUK EST (test code = 3263) n/a Negative - Negative POCT U NIT (test code = 3262) n/a Negative - Negative POCT U PROT (test code = 3259) neg Negative - Negative POCT U GLU (test code = 3256) neg Negative - Negative POCT U KETONE (test code = 3258) n/a Negative - Negative POCT U BLD (test code = 3257) n/a Negative - Negative Lab Interpretation (test code = Normal 07658-5) [facility] W/O SPECIFIC [id number] 15:45:00 Test Item Value Reference Range Interpretation Comments POCT PH U (test code = 3254) n/a 5-8 POCT U LEUK EST (test code = n/a Negative - Negative 3263) POCT U NIT (test code = 3262) n/a Negative - Negative POCT U PROT (test code = 3259) negative Negative - Negative POCT U GLU (test code = 3256) Negative - Negative POCT U KETONE (test code = 3258) n/a Negative - Negative POCT U BLD (test code = 3257) n/a Negative - Negative [facility] HR GLUCOSE TOLERANCE [id number] 18:18:00 Test Item Value Reference Range Interpretation Comments GLUC 3 HR (test code = 0903815856) 40 mg/dL 70-110 LL Lab Interpretation (test code = Abnormal 16611-2) [facility] CenterGLU[facility] [id number] 17:01:00 Test Item Value Reference Range Interpretation Comments GLU FASTNG (test code = 6547859956) 79 mg/dL 70-110 Lab Interpretation (test code = Normal 74563-3) [facility] HR GLUCOSE [place]ER[place] [id number] 16:59:00 Test Item Value Reference Range Interpretation Comments GLUC 1 HR (test code = 9750212463) 136 mg/dL 120-170 Lab Interpretation (test code = Normal 19866-5) [facility] HR GLUCOSE [place]ERANCE [id number] 16:59:00 Test Item Value Reference Range Interpretation Comments GLUC 2 HR (test code = 9132785985) 142 mg/dL 70-120 H Lab Interpretation (test code = Abnormal 17398-3) [facility] WITH [id number] 18:40:00 Test Item Value Reference Range Interpretation Comments WBC (test code = See_Comment H [Automated 6690-2) message] The sy stem which generated this result transmitted reference range : 4.30 - 11.10 10*3/?L. The reference range was not used to interpret this result as normal/abnormal . RBC (test code = See_Comment L [Automated 789-8) message] The sy stem which generated this result transmitted reference range : 3.93 - 5.25 10*6/?L. The reference range was not used to interpret this result as normal/abnormal . HGB (test code = 12.4 g/dL 11.6-15 718-7) HCT (test code = 35.0 % 35.7-45.2 L 4544-3) MCV (test code = 94.3 fL 80.6-95.5 787-2) MCH (test code = 33.4 pg 25.9-32.8 H 785-6) MCHC (test code = 35.4 g/dL 31.6-35.1 H 786-4) RDW-SD (test code = 44.2 fL 39-49.9 07913-8) RDW-CV (test code = 12.9 % 12-15.5 788-0) PLT (test code = See_Comment [Automated 777-3) message] The sy stem which generated this result transmitted reference range : 166 - 358 10*3/ ?L. The reference r elena was not used to interpret this result as normal/abnormal . MPV (test code = 9.6 fL 9.5-12.9 92438-9) NRBC/100 WBC (test See_Comment [Automat ed code = 0686230101) message] The system which generated this result transmitted reference range : 0.0 - 10.0 /100 WBCs. The refer ence range was not u sed to interpret th is result as normal/abnormal . NRBC x10^3 (test code <0.01 See_Comment [Auto mated = 8336571003) message] The s ystem which generated this result transmitted reference range : 10*3/?L. The reference range was not used to interpret this result as normal/abnormal . GRAN MAT (NEUT) % 69.2 % (test code = 770-8) IMM GRAN % (test code 2.80 % = 3581131985) LYMPH % (test code = 21.5 % 736-9) MONO % (test code = 4.8 % 5905-5) EOS % (test code = 1.3 % 713-8) BASO % (test code = 0.4 % 706-2) GRAN MAT x10^3(ANC) 9.08 10*3/uL 1.88-7.09 H (test code = 8129296084) IMM GRAN x10^3 (test 0.37 10*3/uL 0-0.06 H code = 1960843300) LYMPH x10^3 (test code 2.82 10*3/uL 1.32-3.29 = 731-0) MONO x10^3 (test code 0.63 10*3/uL 0.33-0.92 = 742-7) EOS x10^3 (test code = 0.17 10*3/uL 0.03-0.39 711-2) BASO x10^3 (test code 0.05 10*3/uL 0.01-0.07 = 704-7) BANDS (test code = Increased A 6811145563) Lab Interpretation Abnormal (test code = 42518-1) [facility] 1 HOUR POST [id number] 17:44:00 Test Item Value Reference Range Interpretation Comments GLUC 1 HR (test code = 8867802360) 141 mg/dL 120-170 Lab Interpretation (test code = Normal 20531-1) [facility] W/O SPECIFIC [id number] 15:14:00 Test Item Value Reference Range Interpretation Comments POCT PH U (test code = 3254) n/a 5-8 POCT U LEUK EST (test code = 3263) n/a Negative - Negative POCT U NIT (test code = 3262) n/a Negative - Negative POCT U PROT (test code = 3259) neg Negative - Negative POCT U GLU (test code = 3256) neg Negative - Negative POCT U KETONE (test code = 3258) n/a Negative - Negative POCT U BLD (test code = 3257) n/a Negative - Negative Lab Interpretation (test code = Normal 92729-6) [facility] W/O SPECIFIC [id number] 17:04:00 Test Item Value Reference Range Interpretation Comments POCT PH U (test code = 3254) 8 mg/dl 5-8 POCT U LEUK EST (test code = neg Negative - Negative 3263) POCT U NIT (test code = 3262) neg Negative - Negative POCT U PROT (test code = 3259) neg Negative - Negative POCT U GLU (test code = 3256) neg Negative - Negative POCT U KETONE (test code = 3258) neg Negative - Negative POCT U BLD (test code = 3257) neg Negative - Negative Lab Interpretation (test code = Abnormal 83546-3) [facility] W/O SPECIFIC [id number] 15:15:00 Test Item Value Reference Range Interpretation Comments POCT PH U (test code = 3254) n/a 5-8 POCT U LEUK EST (test code = 3263) n/a Negative - Negative POCT U NIT (test code = 3262) n/a Negative - Negative POCT U PROT (test code = 3259) neg Negative - Negative POCT U GLU (test code = 3256) neg Negative - Negative POCT U KETONE (test code = 3258) n/a Negative - Negative POCT U BLD (test code = 3257) n/a Negative - Negative [facility]2 AG-AB WITH [id number] 17:18:00 Test Item Value Reference Range Interpretation Comments HIV Negative Negative Semi-quantitative (test code = 25440-0) TRISHA (test code = Non-reactive for HIV-1 TRISHA) antigen and HIV-1/HIV-2 antibodies. ?No laboratory evidence of HIV infection. ?Repeat in 2-4 weeks if acute HIV infection is suspected. [facility]GL[facility] 1 HOUR POST [id number] 16:37:00 Test Item Value Reference Range Interpretation Comments GLUC 1 HR (test code = 7804103096) 80 mg/dL 120-170 L Lab Interpretation (test code = Abnormal 55552-9) [facility] CenterPRENATAL WORKUP, BLOOD [id number] 16:03:38 Test Item Value Reference Range Interpretation Comments ABO & RH (test code B Positive Performe d at [facility] = 20) Laboratory [facility] [place], [place] [id number] Free: [phone] A No. [id number] IAT (test code = Negative Performed a t [facility] 1185) Laboratory Serv [facility] [address] [place], [place] [address]Toll Free: [phone] A No. [id number] [facility] WITH [id number] 15:11:00 Test Item Value Reference Range Interpretation Comments WBC (test code = See_Comment [Automated 6685-2) message] The sy stem which generated this result transmitted reference range : 4.30 - 11.10 10*3/?L. The reference range was not used to interpret this result as normal/abnormal . RBC (test code = See_Comment [Automated 069-8) message] The sy stem which generated this result transmitted reference range : 3.93 - 5.25 10*6/?L. The reference range was not used to interpret this result as normal/abnormal . HGB (test code = 13.6 g/dL 11.6-15 718-7) HCT (test code = 38.1 % 35.7-45.2 4544-3) MCV (test code = 92.5 fL 80.6-95.5 787-2) MCH (test code = 33.0 pg 25.9-32.8 H 785-6) MCHC (test code = 35.7 g/dL 31.6-35.1 H 786-4) RDW-SD (test code = 41.2 fL 39-49.9 24478-3) RDW-CV (test code = 12.3 % 12-15.5 788-0) PLT (test code = See_Comment [Automated 777-3) message] The sy stem which generated this result transmitted reference range : 166 - 358 10*3/ ?L. The reference r elena was not used to interpret this result as normal/abnormal . MPV (test code = 9.9 fL 9.5-12.9 65761-1) NRBC/100 WBC (test See_Comment [Automat ed code = 0932995632) message] The system which generated this result transmitted reference range : 0.0 - 10.0 /100 WBCs. The refer ence range was not u sed to interpret th is result as normal/abnormal . NRBC x10^3 (test code <0.01 See_Comment [Auto mated = [id number]) message] The s ystem which generated this result transmitted reference range : 10*3/?L. The reference range was not used to interpret this result as normal/abnormal . GRAN MAT (NEUT) % 62.8 % (test code = 770-8) IMM GRAN % (test code 0.60 % = 6696862299) LYMPH % (test code = 30.2 % 736-9) MONO % (test code = 4.5 % 5905-5) EOS % (test code = 1.4 % 713-8) BASO % (test code = 0.5 % 706-2) GRAN MAT x10^3(ANC) 6.02 10*3/uL 1.88-7.09 (test code = 0794005210) IMM GRAN x10^3 (test 0.06 10*3/uL 0-0.06 code = 3864105541) LYMPH x10^3 (test code 2.89 10*3/uL 1.32-3.29 = 731-0) MONO x10^3 (test code 0.43 10*3/uL 0.33-0.92 = 742-7) EOS x10^3 (test code = 0.13 10*3/uL 0.03-0.39 711-2) BASO x10^3 (test code 0.05 10*3/uL 0.01-0.07 = 704-7) Lab Interpretation Abnormal (test code = 74993-1) [facility]<14 WEEKS US [id number] 15:39:41Limited USG for FHT: ?155 Eran Alva MD ?08/16/2019 ?9:39 AMUnNorth [facility]ADC / [facility] - DRUG SCREEN [id number] 00:06:00 Test Item Value Reference Range Interpretation Comments BENZO U (test code = Negative Negative 9671937588) SUKHI U (test code = Negative Negative 8821828156) AMPHET (test code = Negative Negative 0494179864) THC (test code = Negative Negative 4586230402) METHADONE (test code = Negative Negative 0882234049) Meth U (test code = Negative Negative 1716473347) OPIATES (test code = Negative Negative 7700732947) Cocaine Metabolite (test Negative Negative code = 3661060155) PROPOXY (test code = Negative Negative 5793262817) Tric U (test code = Negative Negative 2668951350) PCP (test code = Negative Negative 1619429177) OXYCOD (test code = Negative Negative 5053333021) TRISHA (test code = TRISHA) Urine Drug Cutoff Ranges Benzodiazepines: ? ? 150 ng/mLBarbiturates: ?200 ng/mLAmphetamine: ? 500 ng/mLCannabinoids: ?50 ?ng/mLMethadone: ? 200 ng/mLMethamphetamine: ? ? 500 ng/mL Opiates: ? 100 ng/mL or 2000 ng/mLCocaine: ? 150 ng/mLPropoxyphene: ?300 ng/mLTricyclics: ?300 ng/mLOxycodone: ? 100 ng/mLPCP: ? 25 ?ng/mL The results are to be used only for medical (i.e., treatment) purposes. Unconfirmed screening results must not be used for non-medical purposes (e.g., employment testing, legal testing). Lab Interpretation (test Normal code = 46215-2) [facility] PELVIS COMPLETE WITH [id number] 15:03:18HISTORY: Vaginal/pelvic pain during intercourse. TECHNIQUE: Both transabdominal and transvaginal pelvic ultrasound studieswere completed by the technologist. FINDINGS: Comparison has been made with 05/10/2018 study. Uterus is of normal size and shape, measures approximately 7.1 x 2.5 x 4.3cm in size wi th homogeneous echo texture of the myometrium. Endometrialecho complex is 3.7 mm. No free fluid in the cul-de-sac. Right ovary is 3 x 3 x 1.6 cm (7.93 ml) and left ovary is 4.7 x 3.3 x 3.0cm (24.89 ml). Multiple follicles are seen in the right ovary, ranging from4 mm to 8mm in size. Left ovary contains a large 3.4 x 2.8 cm cyst with atleast one 6 mm daughter cyst protruding into its lumen. 17 x 12 x26 mm cystic lesion again noted adjacent to the external os ofthe cervix, likely arising from the vaginal wall. CONCLUSIONS: 1. Enlarged left ovary due to a large 3.4 cm size cyst. This cyst is a newfinding since April 2018 study.2. Known cystic mass in the wall of the vagina closed external os of thecervix, essentially unchanged. This cystic mass is likely the cause ofpatient's complaints. [facility], Radiant Results Inft User - 02/14/2019 10:05 AM CDTHISTORY: Vaginal/pelvic pain during intercourse.TECHNIQUE: Both transabdominal and transvaginal pelvic ultrasound studieswere completed by the technologist.FINDINGS: Comparison has been made with 05/10/2018 study.Uterus is of normal size and shape,measures approximately 7.1 x 2.5 x 4.3cm in size with homogeneous echo texture of the myometrium. Endometrialecho complex is 3.7 mm. No free fluid in the cul-de-sac. Right ovary is 3 x 3 x 1.6 cm (7.93ml) and left ovary is 4.7 x 3.3 x 3.0cm (24.89 ml). Multiple follicles are seen in the right ovary, ranging from4 mm to 8mm in size. Left ovary contains a large 3.4 x 2.8 cm cyst with atleast one 6 mm daughter cyst protruding into its lumen.17 x 12 x 26 mm cystic lesion again noted adjacent to the external os ofthe cervix, likely arising from the vaginal wall.CONCLUSIONS: 1. Enlarged left ovary due to a large 3.4 cm size cyst. This cyst is a newfinding since April 2018 study.2. Known cystic mass in the wall of the vagina closed external os of thecervix, essentially unchanged. This cystic mass islikely the cause ofpatient's complaints.[facility]
[2021-10-07] MEDS ORDERED: ONDANSETRON 4 MG/2 ML VIAL ONE (08:51)
[2021-10-07] MEDS ORDERED: DICYCLOMINE HCL 20 MG/2 ML AMP IM ONE (08:52)
[2021-10-07] MEDS ORDERED: NA CHLORIDE 0.9% 1,000 ML ONE (08:52)
[2021-10-07] MEDS ORDERED: FAMOTIDINE 20 MG/2 ML VIAL IV ONE (08:52)
[2021-10-07 09:16] LABS: Absolute Lymphocytes (CBC) 0.5 K/uL (0.7-4.9); Hematocrit 45.2 % (36.0-45.0); Lymphocytes % 3.4 % (15.3-44.8); RBC Red Blood Cell Count 4.94 M/uL (3.86-4.86)
[2021-10-07 09:40] LABS: Albumin 4.3 g/dL (3.4-5.0); Bilirubin Total 1.2 mg/dL (0.2-1.0)
[2021-10-07 10:01] LABS: Blood Morphology Comment NOT SEEN (NOT SEEN); Platelet Estimate ADEQ
[2021-10-07 10:06] LABS: SARS-COV-2 RT PCR NEGATIVE (NEGATIVE)
--- NOTE | 2021-10-07 11:35 | EDPHYS ---
Physician Documentation [facility] Name: Subha Fan Age: 30 yrs Sex: Female : 1990 Arrival Date: 10/07/2021 Time: 07:53 Bed 18 Private MD: ED Physician Kimberley Miller HPI: 10/07 08:44 This 30 yrs old Female presents to ER via Ambulatory with complaints of Vomiting. pm1 08:44 The patient presents to the emergency department with nausea, vomiting. Onset: The pm1 symptoms/episode began/occurred this morning, at 01:00. Possible causes: unknown. The symptoms are alleviated by nothing. Associated signs and symptoms: Pertinent negatives: abdominal pain, diarrhea, dysuria, fever. Severity of symptoms: in the emergency department the symptoms are unchanged. The patient has not experienced similar symptoms in the past. The patient has not recently seen a physician. Negative for sick contacts. 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 - Social history:: Smoking status: Patient denies any tobacco usage or history of. ROS: 08:44 Constitutional: Negative for fever, chills, and weight loss, Cardiovascular: Negative pm1 for chest pain, palpitations, and edema, Respiratory: Negative for shortness of breath, cough, wheezing, and pleuritic chest pain. 08:44 Back: Negative for injury and pain, : Negative for injury, bleeding, discharge, and swelling, MS/Extremity: Negative for injury and deformity, Skin: Negative for injury, rash, and discoloration, Neuro: Negative for headache, weakness, numbness, tingling, and seizure. 08:44 Abdomen/GI: Positive for nausea and vomiting, Negative for abdominal pain, diarrhea, constipation. 08:44 All other systems are negative. Exam: 08:44 Constitutional: This is a well developed, well nourished patient who is awake, alert, pm1 and in no acute distress. Head/Face: Normocephalic, atraumatic. Cardiovascular: Regular rate and rhythm with a normal S1 and S2. No gallops, murmurs, or rubs. Normal PMI, no JVD. No pulse deficits. Respiratory: Lungs have equal breath sounds bilaterally, clear to auscultation and percussion. No rales, rhonchi or wheezes noted. No increased work of breathing, no retractions or nasal flaring. 08:44 Back: No spinal tenderness. No costovertebral tenderness. Full range of motion. Skin: Warm, dry with normal turgor. Normal color with no rashes, no lesions, and no evidence of cellulitis. MS/ Extremity: Pulses equal, no cyanosis. Neurovascular intact. Full, normal range of motion. 08:44 Abdomen/GI: Inspection: abdomen appears normal, Palpation: abdomen is soft and non-tender, in all quadrants. 08:44 Neuro: Exam negative for acute changes, Orientation: is normal, Mentation: is normal, Motor: is normal, moves all fours. Vital Signs: 08:32 BP 119 / 89; Pulse 115; Resp 18; Temp 98.1(TE); Pulse Ox 100% on R/A; Weight 73.94 kg; ss Height 5 ft. 4 in. (162.56 cm); Pain 0/10; 09:15 Pulse 90; Resp 16; Pulse Ox 99% on R/A; vg1 08:32 Body Mass Index 27.98 (73.94 kg, 162.56 cm) ss MDM: 08:34 Patient medically screened. pm1 11:34 Data reviewed: vital signs. Data interpreted: Pulse oximetry: on room air is 99 %. pm1 Interpretation: normal. Counseling: I had a detailed discussion with the patient and/or guardian regarding: the historical points, exam findings, and any diagnostic results supporting the discharge/admit diagnosis, lab results, the need for outpatient follow up, to return to the emergency department if symptoms worsen or persist or if there are any questions or concerns that arise at home. 10/07 08:44 Order name: CBC with Diff; Complete Time: 10:34 pm1 10/07 08:44 Order name: CMP; Complete Time: 09:53 pm1 10/07 08:44 Order name: COVID-19/FLU A+B (Document "Date of Onset" if Symptomatic); Complete Time: pm1 10:34 10/07 10:01 Order name: Manual Differential; Complete Time: 10:34 EDMS 04/19 11:38 Order name: Urine Dipstick-Ancillary; Complete Time: 11:47 EDID 10/07 11:40 Order name: Urine --Ancillary (enter results) bd 10/07 08:44 Order name: IV Saline Lock; Complete Time: 09:14 pm1 10/07 08:44 Order name: Labs collected and sent; Complete Time: 09:15 pm1 10/07 08:44 Order name: Urine Dipstick-Ancillary (obtain specimen); Complete Time: 11:37 pm1 10/07 08:44 Order name: Urine Test (obtain specimen); Complete Time: 11:37 pm1 10/07 11:30 Order name: PO challenge; Complete Time: 11:37 pm1 Administered Medications: 09:02 Drug: NS 0.9% 1000 ml Route: IV; Rate: 1 bolus; Site: right antecubital; vg1 11:11 Follow up: IV Status: Completed infusion; IV Intake: 1000ml vg1 09:02 Drug: Zofran (Ondansetron) 4 mg Route: IVP; Site: right antecubital; vg1 11:11 Follow up: Response: No adverse reaction; Marked relief of symptoms vg1 09:05 Drug: Pepcid (famotidine) 20 mg Route: IVP; Site: right antecubital; vg1 11:11 Follow up: Response: No adverse reaction vg1 09:11 Drug: Bentyl (dicyclomine) 20 mg Route: IM; Site: right gluteus; vg1 10:30 Follow up: Response: No adverse reaction; Marked relief of symptoms vg1 Disposition Summary: 10/07/21 11:34 Discharge Ordered Location: Home pm1 Problem: new pm1 Symptoms: have improved pm1 Condition: Stable pm1 Diagnosis - Vomiting pm1 Followup: pm1 - With: Emergency Department - When: As needed - Reason: Worsening of condition Followup: pm1 - With: Private Physician - When: 2 - 3 days - Reason: Recheck today's complaints, Continuance of care, Re-evaluation by your physician Discharge Instructions: - Discharge Summary Sheet pm1 - Dehydration, Adult pm1 - Viral Gastroenteritis, Adult pm1 - Vomiting, Adult pm1 - Rehydration, Adult pm1 Forms: - Medication Reconciliation Form pm1 - Thank You Letter pm1 - Antibiotic Education pm1 - Prescription Opioid Use pm1 Prescriptions: - ondansetron 4 mg Oral tablet,disintegrating - place 1 tablet by TRANSLINGUAL route every 8 hours As needed; 12 tablet; pm1 Refills: 0, Product Selection Permitted Addendum: 10/09/2021 18:34 Co-signature as Attending Physician, Kimberley price a2 Signatures: Dispatcher [employer] EDID Le Fuentes, RN RN ss Chapito Calhoun, BOOKING POLICE OFFICER BOOKING POLICE OFFICER pm1 Kimberley Miller MD MD ma2 Raquel Jaramillo RN RN vg1
--- NOTE | 2021-10-07 11:35 | ER ---
Nurse's Notes [facility] Name: Subha Fan Age: 30 yrs Sex: Female : 1990 Arrival Date: 10/07/2021 Time: 07:53 Bed 18 Private MD: Diagnosis: Vomiting Presentation: 10/07 08:32 Chief complaint: Patient states: N/V that began at 0100 this morning. Denies pain. ss Coronavirus screen: Client denies travel out of the [place] in the last 14 days. Ebola Screen: Patient denies exposure to infectious person. Patient denies travel to an Ebola-affected area in the 21 days before illness onset. Initial Sepsis Screen: Does the patient meet any 2 criteria? No. Patient's initial sepsis screen is negative. Does the patient have a suspected source of infection? No. Patient's initial sepsis screen is negative. Risk Assessment: Do you want to hurt yourself or someone else? Patient reports no desire to harm self or others. Onset of symptoms was October 07, 2021. 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 - Social history:: Smoking status: Patient denies any tobacco usage or history of. Screenin:17 Abuse screen: Denies threats or abuse. Nutritional screening: No deficits noted. vg1 Tuberculosis screening: No symptoms or risk factors identified. Fall Risk No fall in past 12 months (0 pts). No secondary diagnosis (0 pts). IV access (20 points). Ambulatory Aid- None/Bed Rest/Nurse Assist (0 pts). Gait- Normal/Bed Rest/Wheelchair (0 pts) Mental Status- Oriented to own ability (0 pts). Total Aguilera Fall Scale indicates No Risk (0-24 pts). Assessment: 08:55 General: Appears in no apparent distress. comfortable, Behavior is calm, cooperative. vg1 Pain: Denies pain. Neuro: Level of Consciousness is awake, alert, obeys commands, Oriented to person, place, time, situation. Cardiovascular: Patient's skin is warm and dry. Respiratory: Airway is patent Respiratory effort is even, unlabored. GI: Abdomen is flat, Abd is soft and non tender Reports nausea, vomiting, since about 0130. : No signs and/or symptoms were reported regarding the genitourinary system. EENT: No signs and/or symptoms were reported regarding the EENT system. Derm: Skin is intact, is healthy with good turgor. Musculoskeletal: Circulation, motion, and sensation intact. 10:43 Reassessment: Patient appears in no apparent distress at this time. Patient and/or vg1 family updated on plan of care and expected duration. Pain level reassessed. Patient is alert, oriented x 3, equal unlabored respirations, skin warm/dry/pink. Pt states pain 2/10. 11:45 Reassessment: Patient appears in no apparent distress at this time. No changes from vg1 previously documented assessment. Patient and/or family updated on plan of care and expected duration. Pain level reassessed. Patient is alert, oriented x 3, equal unlabored respirations, skin warm/dry/pink. Vital Signs: 08:32 BP 119 / 89; Pulse 115; Resp 18; Temp 98.1(TE); Pulse Ox 100% on R/A; Weight 73.94 kg; Height 5 ft. 4 in. (162.56 cm); Pain 0/10; 09:15 Pulse 90; Resp 16; Pulse Ox 99% on R/A; vg1 08:32 Body Mass Index 27.98 (73.94 kg, 162.56 cm) ED Course: 07:53 Patient arrived in ED. ds1 08:06 Chapito Calhoun NP is PHCP. pm1 08:06 Kimberley Miller MD is Attending Physician. pm1 08:33 Triage completed. ss 08:33 Arm band placed on right wrist. 08:43 Raquel Jaramillo, RN is Primary Nurse. vg1 09:00 Initial lab(s) drawn, by me, sent to lab. Inserted saline lock: 20 gauge in right vg1 antecubital area, using aseptic technique. Blood collected. 09:05 COVID swab sent to lab. Flu and/or RSV swab sent to lab. vg1 09:17 Patient has correct armband on for positive identification. Bed in low position. Call vg1 light in reach. Side rails up X 1. 12:17 No provider procedures requiring assistance completed. IV discontinued, intact, vg1 bleeding controlled, No redness/swelling at site. Pressure dressing applied. Administered Medications: 09:02 Drug: NS 0.9% 1000 ml Route: IV; Rate: 1 bolus; Site: right antecubital; vg1 11:11 Follow up: IV Status: Completed infusion; IV Intake: 1000ml vg1 09:02 Drug: Zofran (Ondansetron) 4 mg Route: IVP; Site: right antecubital; vg1 11:11 Follow up: Response: No adverse reaction; Marked relief of symptoms vg1 09:05 Drug: Pepcid (famotidine) 20 mg Route: IVP; Site: right antecubital; vg1 11:11 Follow up: Response: No adverse reaction vg1 09:11 Drug: Bentyl (dicyclomine) 20 mg Route: IM; Site: right gluteus; vg1 10:30 Follow up: Response: No adverse reaction; Marked relief of symptoms vg1 Intake: 11:11 IV: 1000ml; Total: 1000ml. vg1 Outcome: 11:34 Discharge ordered by MD. pm1 12:17 Discharged to home ambulatory. vg1 12:17 Condition: good 12:17 Discharge instructions given to patient, Instructed on discharge instructions, follow up and referral plans. medication usage, Demonstrated understanding of instructions, follow-up care, medications, Prescriptions given X 1. 12:17 Patient left the ED. vg1 Signatures: Syeda Elkins ds1 Le Fuentes RN RN Chapito Archer NP WASHING MACHINE INSTALLER pm1 Raquel Jaramillo RN RN vg1
[2021-10-07 11:38] LABS: Urine Blood 1+ (Negative); Urine Glucose Negative (Negative); Urine Protein Negative (Negative); Urine Specific Gravity 1.025 (1.005-1.030)
[2021-10-07 12:37] LABS: Urine Specific Gravity/Preg 1.025 (1.005-1.030)
[2021-10-07 16:12] VITALS: BP 119/89; TEMP 98.1
[2021-10-07 16:14] VITALS: O2SAT 99
== END 2021-10-07 12:17 | disposition home or self-care (01) ==
LOC: ER 07:51
DX: R11.10 Vomiting, unspecified (principal); Z20.822 Contact with and (suspected) exposure to COVID-19; Z88.0 Allergy status to penicillin; Z88.1 Allergy status to other antibiotic agents
CPT/HCPCS: 96361; 85025; 36415; 81025; 81003; 80053; 0240U; 96375; 96372; 96374; 99284; J0500; J7030; J2405; J3490